=== PATIENT | male | born 1965 | race Caucasian/White ===

== ENCOUNTER 2020-08-15 17:09 | Inpatient (IN) ==
[2020-08-15] MEDS ORDERED: ZOFRAN INJ 4 MG VIAL IVP PRN (18:23)
[2020-08-15] MEDS ORDERED: DEMEROL INJ IVP PRN (18:23)
[2020-08-15 18:51] LABS: BASOPHILS # (AUTO) 0.1 X10^3/uL (0.0-0.1); BASOPHILS % (AUTO) 0.5 % (0.2-1.0); EOSINOPHILS # (AUTO) 0.1 x10^3/uL (0.0-0.2); EOSINOPHILS % (AUTO) 0.7 % (0.9-2.9); HEMATOCRIT 38.9 % (42.0-54.0); HEMOGLOBIN 13.4 g/dL (13.5-18.0); LYMPHOCYTES # (AUTO) 1.7 X10^3/uL (1.3-2.9); LYMPHOCYTES % (AUTO) 10.5 % (21.0-51.0); MEAN CORPUSCULAR HEMOGLOBIN 35.1 pg (27.0-34.0); MEAN CORPUSCULAR HGB CONC 34.4 g/dL (33.0-35.0); MEAN CORPUSCULAR VOLUME 102.1 fL (80.0-100.0); MEAN PLATELET VOLUME 7.9 fL (7.4-11.0); MONOCYTES # (AUTO) 0.7 x10^3/uL (0.3-0.8); MONOCYTES % (AUTO) 4.7 % (0.0-13.0); NEUTROPHILS # (AUTO) 13.2 x10^3/uL (2.2-4.8); NEUTROPHILS % (AUTO) 83.6 % (42.0-75.0); PLATELET COUNT 143 X10^3/uL (150.0-450.0); RED BLOOD COUNT 3.81 X10^6/uL (4.7-6.0); RED CELL DISTRIBUTION WIDTH 13.2 % (11.6-16.5); WHITE BLOOD COUNT 15.8 X10^3/uL (3.6-10.0)
[2020-08-15 19:05] LABS: ALANINE AMINOTRANSFERASE 56 Units/L (12-78); ALKALINE PHOSPHATASE 152 Units/L (46-116); AMYLASE 77 Units/L (25-115); ASPARTATE AMINO TRANSFERASE 43 Units/L (15-37); BLOOD UREA NITROGEN 3 mg/dL (7-18); CALCIUM 8.4 mg/dL (8.5-10.1); CARBON DIOXIDE 30.2 mmol/L (21-32); CHLORIDE 96 mmol/L (98-107); COR CA(FOR HYPOALB) 9.2 mg/dL (8.5-10.1); COR NA(FOR HYPERGLY) 133 mmol/L (136-145); CREATININE 0.84 mg/dL (0.70-1.30); LIPASE 1482 Units/L (73-393); SODIUM 132 mmol/L (136-145); TOTAL PROTEIN 7.4 g/dL (6.4-8.2); eGFR NON BLACK RACES > 60 (>60)
[2020-08-15] MEDS ORDERED: NS 1000 ML 1,000 ML ONE (21:34)
[2020-08-15] MEDS: NS 1000 ML 1,000 ML IV SCH (21:35)
[2020-08-16 00:21] VITALS: BMI 23.7
[2020-08-16] MEDS ORDERED: POTASSIUM CHL 60 MEQ/NS 0.45% 500 ML IV PRN (02:11)
[2020-08-16] MEDS ORDERED: POTASSIUM CHLORIDE LIQ 20 MEQ UDC PO PRN (02:11)
[2020-08-16] MEDS ORDERED: MAGNESIUM SULFATE 1 GRAM/100 mL PREMIX 1 GM/100 ML BAG IV PRN (02:11)
[2020-08-16] MEDS ORDERED: KLOR-CON PO PRN (02:11)
[2020-08-16] MEDS ORDERED: MICRO K EXTEN CAP 10 MEQ PO PRN (02:11)
[2020-08-16] MEDS ORDERED: POTASSIUM CHL 40 MEQ/NS 0.45% 500 ML IV PRN (02:11)
[2020-08-16 06:07] LABS: BASOPHILS % (AUTO) 0.3 % (0.2-1.0); EOSINOPHILS # (AUTO) 0.2 x10^3/uL (0.0-0.2); EOSINOPHILS % (AUTO) 1.5 % (0.9-2.9); HEMATOCRIT 35.8 % (42.0-54.0); HEMOGLOBIN 12.3 g/dL (13.5-18.0); LYMPHOCYTES # (AUTO) 1.5 X10^3/uL (1.3-2.9); LYMPHOCYTES % (AUTO) 12.5 % (21.0-51.0); MEAN CORPUSCULAR HEMOGLOBIN 35.1 pg (27.0-34.0); MEAN CORPUSCULAR HGB CONC 34.3 g/dL (33.0-35.0); MEAN CORPUSCULAR VOLUME 102.3 fL (80.0-100.0); MEAN PLATELET VOLUME 8.5 fL (7.4-11.0); MONOCYTES # (AUTO) 0.7 x10^3/uL (0.3-0.8); MONOCYTES % (AUTO) 5.9 % (0.0-13.0); NEUTROPHILS # (AUTO) 9.4 x10^3/uL (2.2-4.8); NEUTROPHILS % (AUTO) 79.8 % (42.0-75.0); PLATELET COUNT 136 X10^3/uL (150.0-450.0); RED CELL DISTRIBUTION WIDTH 12.9 % (11.6-16.5); WHITE BLOOD COUNT 11.8 X10^3/uL (3.6-10.0)
[2020-08-16 06:26] LABS: ALANINE AMINOTRANSFERASE 44 Units/L (12-78); ALBUMIN 2.5 g/dL (3.4-5.0); ALKALINE PHOSPHATASE 131 Units/L (46-116); ASPARTATE AMINO TRANSFERASE 36 Units/L (15-37); BLOOD UREA NITROGEN 4 mg/dL (7-18); CALCIUM 8.4 mg/dL (8.5-10.1); CARBON DIOXIDE 28.5 mmol/L (21-32); CHLORIDE 100 mmol/L (98-107); COR CA(FOR HYPOALB) 9.6 mg/dL (8.5-10.1); COR NA(FOR HYPERGLY) 137 mmol/L (136-145); CREATININE 0.71 mg/dL (0.70-1.30); SODIUM 136 mmol/L (136-145); TOTAL PROTEIN 6.4 g/dL (6.4-8.2); eGFR NON BLACK RACES > 60 (>60)
[2020-08-16] MEDS: K-RIDER 10 MEQ/NS 100 ML 10 MEQ/100 ML BAG IV PRN ×4 (06:46→10:30)
[2020-08-16 08:39] LABS: AMYLASE 69 Units/L (25-115); LIPASE 1363 Units/L (73-393)
[2020-08-16] MEDS: NS 1000 ML 1,000 ML IV SCH ×3 (09:21→21:17)
--- NOTE | 2020-08-16 09:45 | US ---
HISTORYABDOMINAL PAINSTUDYGALL BLADDERCOMPARISONCT 08/15/2020TECHNIQUEMultiple bynum scale and color flow Doppler images of the right upper quadrant were obtained.FINDINGSThe liver is normal in size and increased in echotexture. No focal identifiable hepatic mass or intrahepatic biliary ductal dilatation.No stones or sludge in the gallbladder. No gallbladder wall thickening or pericholecystic fluid. The sonographic Torres's sign is reported as negative by the agile tester. The common bile duct is unremarkable measuring 0.2 cm.Visualized portions of the IVC are unremarkable. Suggestion of pancreatic edema.The right kidney appears normal in size measuring up to 12.0 cm. No stones or hydronephrosis.IMPRESSIONSuggestion of pancreatic edema which may be seen with acute pancreatitis.No evidence of stones or sludge in the gallbladder.Increased hepatic echotexture which may be seen with hepatocellular disease and/or steatosis.Electronically signed by: HOWARD TREADWELL (Aug 16, 2020 09:44:00)
--- NOTE | 2020-08-16 13:02 | DR.H&P ---
H&P - History & Physical for Day of: H&P Date: 08/15/20 - Chief Complaint Chief Complaint: ABDOMINAL PAIN, NAUSEA, VOMITING - History of Present Illness History of Present Illness: IS A 55 YEAR OLD PATIENT OF OURS WHO WAS SEEN IN THE OFFICE TODAY FOR COMPLAINTS OF UPPER ABDOMINAL PAIN, NAUSEA, AND VOMITING X 3 DAYS. SYMPTOMS HAVE PROGRESSIVELY GOTTEN WORSE. SYMPTOMS ARE WORSE AFTER EATING. PAIN IS DESCRIBED SHARP, CRAMPING, AND IS CURRENTLY RATED A 7/10. HE HAS TAKEN NORCO AT HOME WITHOUT IMPROVEMENT IN SYMPTOMS. HE DENIES BOWEL CHANGES, DYSURIA, OR HEMATURIA. HIS PMH INCLUDES: ALCOHOL ABUSE, HTN, CHRONIC BACK PAIN, NECK FUSION, AND STEEL PLATE IN LEFT LOWER LEG. HE WAS SENT TO THE HOSPITAL FOR AN OUTPATIENT ABDOMEN/PELVIS CT WITH CONTRAST. IT REVEALED: 1. Findings compatible with acute pancreatitis around the head and uncinate process of pancreas with associated duodenitis. Scattered free fluid around the liver and in pelvis is likely reactive. No evidence of pseudocyst or other complication. 2. Possible sludge or small stones at gallbladder neck which could be further evaluated with ultrasound. DECISION WAS MADE TO ADMIT PATIENT FOR FURTHER EVALUATION AND TREATMENT OF ACUTE PANCRATITIS. ON ARRIVAL TO THE HOSP ITAL, VITALS WERE 100.4-109-20-99%-202/90. LABS WERE OBTAINED. ABNORMAL LAB VALUES INCLUDED THE FOLLOWING: WBC 15.8, RBC 3.81, HGB 13.4, HCT 38.9, PLT COUNT 143, SODIUM 132, CHLORIDE 96, BUN 3, GLUCOSE 156, CALCIUM 8.4, AST 43, ALK PHOS 152, ALBUMIN 3.0, LIPASE 1482. COVID-19 NEGATIVE. WE STARTED PATIENT ON NS AT 100 ML/HR, DEMEROL 25MG IV Q6H PRN, ZOFRAN 4MG IV Q4H PRN. WE PLAN TO OBTAIN A GALLBLADDER ULTRASOUND. OTHERWISE, WE WILL FOLLOW UP WITH AM LABS AND CONTINUE TO MONITOR. TIME SPENT ON CLINICAL ASSESSMENT, REVIEWING LABS AND IMAGING, DECISION MAKING, AND DOCUMENTATION GREATER THAN 75 MINUTES. - Past Medical History Past Medical History: Hypertension Additional Medical History: ALCOHOL ABUSE, CHRONIC BACK PAIN - Past Surgical History Surgical History: Ortho Surgery Additional Surgical History: STEEL PLATE IN LEFT LOWER LEG, NECK FUSION - Family History Family Medical History: Cancer, Coronary Artery Disease - Social History Does patient currently use any type of tobacco product: Yes Have you used tobacco products in the last 12 months: Yes Type of Tobacco Use: Cigarettes How many years tobacco product used: 40 Does any household member use tobacco: No Alcohol Use: DAILY Drug Use: None - Medications Home Medications: Penicillins Allergy (Verified 08/15/20 21:46) CONTINUE taking the following medications alprazolam 1 mg PO BID 08/16/20 [History] hydrocodone-acetaminophen 1 tab PO QID 08/16/20 [History] - Review of Systems Constitutional: Fever, Weakness Eyes: No Symptoms Reported ENT: No Symptoms Reported Respiratory: No Symptoms Reported Cardiovascular: No Symptoms Reported Gastrointestinal: See HPI, Nausea, Vomiting, Abdominal Pain Genitourinary: No Symptoms Reported Musculoskeletal: No Symptoms Reported Skin: No Symptoms Reported Neurological: Weakness - Physical Exam Vital Signs: Temperature 98.5 F Pulse Rate [Brachial] 81 Respiratory Rate 18 Blood Pressure [Right Arm] 131/63 O2 Sat by Pulse Oximetry 96 Oriented: Normal Eyes: Normal Ear: Normal Nose: Normal Throat: Normal Respiratory: Diminished Throughout Cardiovascular: Tachycardia : Normal Auscultation: Bowel Sounds: Normal Palpation: Normal Tenderness: RUQ, LUQ, Moderate. negative: Rebound, Guarding, Rigidity Skin: Normal Musculoskeletal: Normal Psychiatric: Normal Mood Description: Calm Affect: Normal Speech Pattern: Clear - Assessment/Plan (1) Acute pancreatitis Qualifiers: Pancreatitis type: alcohol induced Acute pancreatitis complication: unspecified Qualified Code(s): K85.20 - Alcohol induced acute pancreatitis without necrosis or infection Status: Acute Plan: ADMIT, NS AT 100 ML/HR, DEMEROL 25MG IV Q6H PRN, ZOFRAN 4MG IV Q4H PRN. OBTAIN GALLBLADDER ULTRASOUND, CONTINUE TO MONITOR. (2) Abdominal pain Qualifiers: Abdominal location: generalized Qualified Code(s): R10.84 - Generalized abdominal pain Status: Acute - Allergies Allergies/Adverse Reactions: Allergies Allergy/AdvReac Type Severity Reaction Status Date / Time Penicillins Allergy Verified 08/15/20 21:46
[2020-08-16] MEDS: XANAX PO SCH ×2 (13:30→20:03)
[2020-08-16] MEDS: NORCO 10/325 TAB PO PRN (20:04)
[2020-08-17 06:18] LABS: BASOPHILS # (AUTO) 0.1 X10^3/uL (0.0-0.1); BASOPHILS % (AUTO) 0.5 % (0.2-1.0); EOSINOPHILS # (AUTO) 0.2 x10^3/uL (0.0-0.2); EOSINOPHILS % (AUTO) 1.8 % (0.9-2.9); HEMATOCRIT 36.9 % (42.0-54.0); HEMOGLOBIN 12.1 g/dL (13.5-18.0); LYMPHOCYTES # (AUTO) 1.5 X10^3/uL (1.3-2.9); LYMPHOCYTES % (AUTO) 13.4 % (21.0-51.0); MEAN CORPUSCULAR HGB CONC 32.8 g/dL (33.0-35.0); MEAN CORPUSCULAR VOLUME 103.6 fL (80.0-100.0); MEAN PLATELET VOLUME 8.4 fL (7.4-11.0); MONOCYTES # (AUTO) 0.7 x10^3/uL (0.3-0.8); MONOCYTES % (AUTO) 6.2 % (0.0-13.0); NEUTROPHILS # (AUTO) 8.7 x10^3/uL (2.2-4.8); NEUTROPHILS % (AUTO) 78.1 % (42.0-75.0); PLATELET COUNT 165 X10^3/uL (150.0-450.0); RED BLOOD COUNT 3.56 X10^6/uL (4.7-6.0); RED CELL DISTRIBUTION WIDTH 13.2 % (11.6-16.5); WHITE BLOOD COUNT 11.1 X10^3/uL (3.6-10.0)
[2020-08-17 06:22] LABS: ALANINE AMINOTRANSFERASE 37 Units/L (12-78); ALBUMIN 2.3 g/dL (3.4-5.0); ALKALINE PHOSPHATASE 143 Units/L (46-116); AMYLASE 66 Units/L (25-115); ASPARTATE AMINO TRANSFERASE 32 Units/L (15-37); BLOOD UREA NITROGEN 4 mg/dL (7-18); CALCIUM 8.2 mg/dL (8.5-10.1); CHLORIDE 103 mmol/L (98-107); COR CA(FOR HYPOALB) 9.6 mg/dL (8.5-10.1); COR NA(FOR HYPERGLY) 138 mmol/L (136-145); CREATININE 0.72 mg/dL (0.70-1.30); LIPASE 1152 Units/L (73-393); SODIUM 137 mmol/L (136-145); TOTAL PROTEIN 6.5 g/dL (6.4-8.2); eGFR NON BLACK RACES > 60 (>60)
[2020-08-17] MEDS: XANAX PO SCH ×2 (10:30→20:33)
--- NOTE | 2020-08-17 10:50 | PCM.PROG ---
Progress Note Progress Note for Day of Date of Exam: 08/17/20 Subjective Subjective: Patient seen at bedside, no acute events overnight. He states he feels better. His abdominal pain has improved. Denies N/V/D. He has been tolerating clears and wants to advance his diet. Denies fever or chills. Labs: WBC 11.1 Hgb 12.1 Na: 138 K: 3.5 Alk phos 143 Lipase 1152 Gallbladder U/S: acute pancreatitis, no stones or sludge noted. Plan: advance diet to full liquids, continue hydration and pain control. Monitor AM labs. Patient reports ETOH use, discussed cessation. Past Medical Family Social History Past Med/Fam/Surg Hx: No changes since H&P Allergies: Allergies Penicillins Allergy (Verified 08/15/20 21:46) Review of Systems ROS: No change since H&P Vital Signs and I&O's Vital Signs: Temperature 98.5 F Pulse Rate [Brachial] 104 Respiratory Rate 18 Blood Pressure [Left Arm] 138/64 Blood Pressure [Right Arm] 135/69 O2 Sat by Pulse Oximetry 98 Intake and Output: Intake & Output 08/14/20 08/15/20 08/16/20 08/17/20 23:59 23:59 23:59 23:59 Intake Total 0 / 0 3033 / 3033 681 / 681 Balance 0 / 0 3033 / 3033 681 / 681 Physical Exam Oriented: Normal Eyes: Normal Ear: Normal Nose: Normal Throat: Normal Respiratory: Normal Cardiovascular: Normal Auscultation: Bowel Sounds: Normal Tenderness: LUQ, LLQ and Mild Skin: Normal Musculoskeletal: Normal Psychiatric: Normal Mood Description: Calm Affect: Normal Speech Pattern: Clear and Appropriate Laboratory and Diagnostics Result Diagrams: 08/17/20 05:13 08/17/20 05:13 Labs: Laboratory WBC 11.1 X10^3/uL (3.6-10.0) H 08/17/20 05:13 RBC 3.56 X10^6/uL (4.7-6.0) L 08/17/20 05:13 Hgb 12.1 g/dL (13.5-18.0) L 08/17/20 05:13 Hct 36.9 % (42.0-54.0) L 08/17/20 05:13 MCV 103.6 fL (80.0-100.0) H 08/17/20 05:13 MCH 34.0 pg (27.0-34.0) 08/17/20 05:13 MCHC 32.8 g/dL (33.0-35.0) L 08/17/20 05:13 RDW 13.2 % (11.6-16.5) 08/17/20 05:13 Plt Count 165 X10^3/uL (150.0-450.0) 08/17/20 05:13 MPV 8.4 fL (7.4-11.0) 08/17/20 05:13 Neut % (Auto) 78.1 % (42.0-75.0) H 08/17/20 05:13 Lymph % (Auto) 13.4 % (21.0-51.0) L 08/17/20 05:13 [place] % (Auto) 6.2 % (0.0-13.0) 08/17/20 05:13 Eos % (Auto) 1.8 % (0.9-2.9) 08/17/20 05:13 Baso % (Auto) 0.5 % (0.2-1.0) 08/17/20 05:13 Neut # (Auto) 8.7 x10^3/uL (2.2-4.8) H 08/17/20 05:13 Lymph # (Auto) 1.5 X10^3/uL (1.3-2.9) 08/17/20 05:13 [place] # (Auto) 0.7 x10^3/uL (0.3-0.8) 08/17/20 05:13 Eos # (Auto) 0.2 x10^3/uL (0.0-0.2) 08/17/20 05:13 Baso # (Auto) 0.1 X10^3/uL (0.0-0.1) 08/17/20 05:13 Absolute Nucleated RBC 0.1 /100WBC 08/17/20 05:13 Sodium 137 mmol/L (136-145) 08/17/20 05:13 Corrected Sodium 138 mmol/L (136-145) 08/17/20 05:13 Potassium 3.5 mmol/L (3.5-5.1) 08/17/20 05:13 Chloride 103 mmol/L (98-107) 08/17/20 05:13 Carbon Dioxide 27.0 mmol/L (21-32) 08/17/20 05:13 BUN 4 mg/dL (7-18) L 08/17/20 05:13 Creatinine 0.72 mg/dL (0.70-1.30) 08/17/20 05:13 Est GFR (MDRD) Af Amer > 60 (>60) 08/17/20 05:13 Est GFR (MDRD) Non-Af > 60 (>60) 08/17/20 05:13 Glucose 157 mg/dL (65-99) H 08/17/20 05:13 Calcium 8.2 mg/dL (8.5-10.1) L 08/17/20 05:13 Corrected Calcium 9.6 mg/dL (8.5-10.1) 08/17/20 05:13 Magnesium 2.2 mg/dL (1.7-2.9) 08/16/20 05:16 Total Bilirubin 0.60 mg/dL (0.2-1.0) 08/17/20 05:13 AST 32 Units/L (15-37) 08/17/20 05:13 ALT 37 Units/L (12-78) 08/17/20 05:13 Alkaline Phosphatase 143 Units/L (46-116) H 08/17/20 05:13 Total Protein 6.5 g/dL (6.4-8.2) 08/17/20 05:13 Albumin 2.3 g/dL (3.4-5.0) L 08/17/20 05:13 Globulin 4.2 g/dL (2.5-4.5) 08/17/20 05:13 Albumin/Globulin Ratio 0.5 Ratio (1.1-2.1) L 08/17/20 05:13 Amylase 66 Units/L (25-115) 08/17/20 05:13 Lipase 1152 Units/L (73-393) H 08/17/20 05:13 Ethyl Alcohol mg/dL < 3 mg/dL (0-19.9) 08/16/20 05:16 SARS CoV-2 RNA Rapid LLOYD Negative (NEGATIVE) 08/15/20 17:57 Plan (1) Acute pancreatitis: Status: Acute Qualifiers: Acute pancreatitis complication: unspecified Pancreatitis type: alcohol induced Qualified Code(s): K85.20 - Alcohol induced acute pancreatitis without necrosis or infection Plan: ADMIT, NS AT 100 ML/HR, DEMEROL 25MG IV Q6H PRN, ZOFRAN 4MG IV Q4H P RN. OBTAIN GALLBLADDER ULTRASOUND, CONTINUE TO MONITOR. (2) Abdominal pain: Status: Acute Qualifiers: Abdominal location: generalized Qualified Code(s): R10.84 - Generalized abdominal pain (3) Alcohol use: Status: Acute
[2020-08-17] MEDS: NS 1000 ML 1,000 ML IV SCH (15:52)
[2020-08-17] MEDS: NORCO 10/325 TAB PO PRN ×2 (18:00→19:26)
[2020-08-17] MEDS: K-DUR TAB 20 MEQ PO PRN (20:34)
[2020-08-18] MEDS: NS 1000 ML 1,000 ML IV SCH (02:30)
[2020-08-18 06:26] LABS: BASOPHILS % (AUTO) 0.4 % (0.2-1.0); EOSINOPHILS # (AUTO) 0.2 x10^3/uL (0.0-0.2); EOSINOPHILS % (AUTO) 1.8 % (0.9-2.9); HEMATOCRIT 33.8 % (42.0-54.0); HEMOGLOBIN 11.3 g/dL (13.5-18.0); LYMPHOCYTES # (AUTO) 1.2 X10^3/uL (1.3-2.9); LYMPHOCYTES % (AUTO) 12.9 % (21.0-51.0); MEAN CORPUSCULAR HEMOGLOBIN 34.7 pg (27.0-34.0); MEAN CORPUSCULAR HGB CONC 33.4 g/dL (33.0-35.0); MEAN CORPUSCULAR VOLUME 103.9 fL (80.0-100.0); MEAN PLATELET VOLUME 8.6 fL (7.4-11.0); MONOCYTES # (AUTO) 0.8 x10^3/uL (0.3-0.8); MONOCYTES % (AUTO) 8.7 % (0.0-13.0); NEUTROPHILS # (AUTO) 7.2 x10^3/uL (2.2-4.8); NEUTROPHILS % (AUTO) 76.2 % (42.0-75.0); PLATELET COUNT 183 X10^3/uL (150.0-450.0); RED BLOOD COUNT 3.26 X10^6/uL (4.7-6.0); RED CELL DISTRIBUTION WIDTH 13.1 % (11.6-16.5); WHITE BLOOD COUNT 9.4 X10^3/uL (3.6-10.0)
[2020-08-18 06:38] LABS: ALANINE AMINOTRANSFERASE 34 Units/L (12-78); ALBUMIN 2.2 g/dL (3.4-5.0); ALKALINE PHOSPHATASE 162 Units/L (46-116); ASPARTATE AMINO TRANSFERASE 34 Units/L (15-37); BLOOD UREA NITROGEN 2 mg/dL (7-18); CALCIUM 8.6 mg/dL (8.5-10.1); CARBON DIOXIDE 26.5 mmol/L (21-32); CHLORIDE 102 mmol/L (98-107); COR NA(FOR HYPERGLY) 137 mmol/L (136-145); CREATININE 0.73 mg/dL (0.70-1.30); SODIUM 135 mmol/L (136-145); TOTAL PROTEIN 6.3 g/dL (6.4-8.2); eGFR NON BLACK RACES > 60 (>60)
[2020-08-18] MEDS: K-DUR TAB 20 MEQ PO PRN (06:51)
[2020-08-18 07:51] VITALS: BP 122/65
--- NOTE | 2020-08-18 08:53 | W.DIS.FURT ---
Summary of Discharge Discharge Summary of Date Date of Exam: 08/18/20 Admission Date Date of Admission: 08/16/20 Admission Diagnosis Patient Problems (Updated 08/16/20 @ 13:03 by aJvier Peterson) Acute pancreatitis (Acute) K85.90 Abdominal pain (Acute) R10.9 Hospital Course: Mr. Francis is a 55y/o male with a PMH of chronic back pain, neck fusion and anxiety presented to Dr Peterson's clinic with increased abdominal pain, nausea and vomiting for the past 3 days. He states pain is sharp, 7/10 and worse with eating. Denies fever or chills. Denies diarrhea. Denies urinary Sx. He does have a hx of ETOH use. He was sent from the office for outpatient CTAP which showed acute pancreatitis around the head and uncinate process of pancreas with associated duodenitis. Possible sludge or small gallstones. Patient was advised to come to the hospital for admission. His lipase was 1482, WBC 15, HGb 13.4 Plt 143. COVID test was negative. He was started on normal saline and pain control. He was kept NPO initially and then advanced as tolerated. Gall bladder U/S was done which showed no stones or sludge. Patient's abdominal pain resolved and he had no N/V. He was advanced to full liquid diet which he was able to tolerate. Discussed alcohol cessation. Patient was stable for discharge. He will f/u with PCP as scheduled. Vital Signs: Vital Signs (72 hours) 08/15/20 20:00 08/15/20 22:01 08/15/20 22:31 Temperature 100.4 F H Pulse Rate [Brachial] 109 H Respiratory Rate 20 20 20 Blood Pressure [Left Arm] Blood Pressure [Right Arm] 202/90 O2 Sat by Pulse Oximetry 99 08/16/20 00:00 08/16/20 04:00 08/16/20 08:00 Temperature 98.7 F 98.7 F 98.5 F Pulse Rate [Brachial] 96 H 89 81 Respiratory Rate 19 20 18 Blood Pressure [Left Arm] Blood Pressure [Right Arm] 137/66 140/67 131/63 O2 Sat by Pulse Oximetry 96 98 96 08/16/20 12:00 08/16/20 16:00 08/16/20 20:00 Temperature 98.5 F 98.3 F 98.3 F Pulse Rate [Brachial] 88 83 86 Respiratory Rate 20 18 20 Blood Pressure [Left Arm] Blood Pressure [Right Arm] 132/67 137/83 171/80 O2 Sat by Pulse Oximetry 96 96 97 08/16/20 20:04 08/16/20 21:04 08/17/20 00:00 Temperature 98.1 F Pulse Rate [Brachial] 88 Respiratory Rate 20 18 20 Blood Pressure [Left Arm] Blood Pressure [Right Arm] 138/65 O2 Sat by Pulse Oximetry 96 08/17/20 04:00 08/17/20 08:00 08/17/20 12:00 Temperature 98.5 F 98.5 F 98.4 F Pulse Rate [Brachial] 81 104 H 106 H Respiratory Rate 20 18 20 Blood Pressure [Left Arm] 138/64 152/73 Blood Pressure [Right Arm] 135/69 O2 Sat by Pulse Oximetry 96 98 98 08/17/20 16:00 08/17/20 18:00 08/17/20 19:00 Temperature 98.7 F Pulse Rate [Brachial] 92 H Respiratory Rate 20 18 20 Blood Pressure [Left Arm] 156/74 Blood Pressure [Right Arm] O2 Sat by Pulse Oximetry 96 08/17/20 20:00 08/18/20 00:00 08/18/20 04:00 Temperature 98.3 F 97.8 F 98.1 F Pulse Rate [Brachial] 86 80 91 H Respiratory Rate 18 16 14 Blood Pressure [Left Arm] 153/96 143/70 142/71 Blood Pressure [Right Arm] O2 Sat by Pulse Oximetry 97 97 97 08/18/20 07:50 Temperature 98.7 F Pulse Rate [Brachial] 88 Respiratory Rate 20 Blood Pressure [Left Arm] 122/65 Blood Pressure [Right Arm] O2 Sat by Pulse Oximetry 95 Labs: Laboratory Last Values WBC 9.4 X10^3/uL (3.6-10.0) 08/18/20 05:21 RBC 3.26 X10^6/uL (4.7-6.0) L 08/18/20 05:21 Hgb 11.3 g/dL (13.5-18.0) L 08/18/20 05:21 Hct 33.8 % (42.0-54.0) L 08/18/20 05:21 MCV 103.9 fL (80.0-100.0) H 08/18/20 05:21 MCH 34.7 pg (27.0-34.0) H 08/18/20 05:21 MCHC 33.4 g/dL (33.0-35.0) 08/18/20 05:21 RDW 13.1 % (11.6-16.5) 08/18/20 05:21 Plt Count 183 X10^3/uL (150.0-450.0) 08/18/20 05:21 MPV 8.6 fL (7.4-11.0) 08/18/20 05:21 Neut % (Auto) 76.2 % (42.0-75.0) H 08/18/20 05:21 Lymph % (Auto) 12.9 % (21.0-51.0) L 08/18/20 05:21 [place] % (Auto) 8.7 % (0.0-13.0) 08/18/20 05:21 Eos % (Auto) 1.8 % (0.9-2.9) 08/18/20 05:21 Baso % (Auto) 0.4 % (0.2-1.0) 08/18/20 05:21 Neut # (Auto) 7.2 x10^3/uL (2.2-4.8) H 08/18/20 05:21 Lymph # (Auto) 1.2 X10^3/uL (1.3-2.9) L 08/18/20 05:21 [place] # (Auto) 0.8 x10^3/uL (0.3-0.8) 08/18/20 05:21 Eos # (Auto) 0.2 x10^3/uL (0.0-0.2) 08/18/20 05:21 Baso # (Auto) 0.0 X10^3/uL (0.0-0.1) 08/18/20 05:21 Absolute Nucleated RBC 0.0 /100WBC 08/18/20 05:21 Sodium 135 mmol/L (136-145) L 08/18/20 05:21 Corrected Sodium 137 mmol/L (136-145) 08/18/20 05:21 Potassium 3.6 mmol/L (3.5-5.1) 08/18/20 05:21 Chloride 102 mmol/L (98-107) 08/18/20 05:21 Carbon Dioxide 26.5 mmol/L (21-32) 08/18/20 05:21 BUN 2 mg/dL (7-18) L 08/18/20 05:21 Creatinine 0.73 mg/dL (0.70-1.30) 08/18/20 05:21 Est GFR (MDRD) Af Amer > 60 (>60) 08/18/20 05:21 Est GFR (MDRD) Non-Af > 60 (>60) 08/18/20 05:21 Glucose 186 mg/dL (65-99) H 08/18/20 05:21 Calcium 8.6 mg/dL (8.5-10.1) 08/18/20 05:21 Corrected Calcium 10.0 mg/dL (8.5-10.1) 08/18/20 05:21 Magnesium 2.2 mg/dL (1.7-2.9) 08/16/20 05:16 Total Bilirubin 0.30 mg/dL (0.2-1.0) 08/18/20 05:21 AST 34 Units/L (15-37) 08/18/20 05:21 ALT 34 Units/L (12-78) 08/18/20 05:21 Alkaline Phosphatase 162 Units/L (46-116) H 08/18/20 05:21 Total Protein 6.3 g/dL (6.4-8.2) L 08/18/20 05:21 Albumin 2.2 g/dL (3.4-5.0) L 08/18/20 05:21 Globulin 4.1 g/dL (2.5-4.5) 08/18/20 05:21 Albumin/Globulin Ratio 0.5 Ratio (1.1-2.1) L 08/18/20 05:21 Amylase 66 Units/L (25-115) 08/17/20 05:13 Lipase 1152 Units/L (73-393) H 08/17/20 05:13 Ethyl Alcohol mg/dL < 3 mg/dL (0-19.9) 08/16/20 05:16 SARS CoV-2 RNA Rapid LLOYD Negative (NEGATIVE) 08/15/20 17:57 Reason For Visit: ACUTE PANCREATITIS Discharge Date Discharge Date: 08/18/20 Discharge Diagnosis All Active Problems (Updated 08/16/20 @ 13:03 by Javier Peterson) Alcohol use (Acute) Acute pancreatitis (Acute) Abdominal pain (Acute) Plan of Treatment: Continue with present treatment and follow up plan. Pt is to keep follow up appointment as instructed and take medications as ordered. Discharge Medications Discharge Medications: Penicillins Allergy (Verified 08/15/20 21:46) CONTINUE taking the following medications alprazolam 1 mg PO BID 08/16/20 [History] hydrocodone-acetaminophen 1 tab PO QID 08/16/20 [History] Follow up and Referral Follow Up: 1 Week (PCP) Discharge Disposition Discharge Disposition: Home Discharge Condition: Stable Discharge Plan Discharge Plan Hospital Course: Mr. Francis is a 55y/o male with a PMH of chronic back pain, neck fusion and anxiety presented to Dr Peterson's clinic with increased abdominal pain, nausea and vomiting for the past 3 days. He states pain is sharp, 7/10 and worse with eating. Denies fever or chills. Denies diarrhea. Denies urinary Sx. He does have a hx of ETOH use. He was sent from the office for outpatient CTAP which showed acute pancreatitis around the head and uncinate process of pancreas with associated duodenitis. Possible sludge or small gallstones. Patient was advised to come to the hospital for admission. His lipase was 1482, WBC 15, HGb 13.4 Plt 143. COVID test was negative. He was started on normal saline and pain control. He was kept NPO initially and then advanced as tolerated. Gall bladder U/S was done which showed no stones or sludge. Patient's abdominal pain resolved and he had no N/V. He was advanced to full liquid diet which he was able to tolerate. Discussed alcohol cessation. Patient was stable for discharge. He will f/u with PCP as scheduled. Patient Disposition: HOME, SELF-CARE Condition: Stable Health Concerns: Post Hospitalization: new medications and changes needed to prevent readmission or further decline. Pt educated and given instructions on all concerns. Plan of Treatment: Continue with present treatment and follow up plan. Pt is to keep follow up appointment as instructed and take medications as ordered. Prescriptions: Continued alprazolam 1 mg tablet 1 mg PO BID RF: 0 hydrocodone-acetaminophen 10-325 mg tablet 1 tab PO QID RF: 0 Follow ups/Referrals Follow ups/Referrals: ARIAS JENKINS [Primary Care Provider] - 1 WEEK Instructions Instructions: Acute Pancreatitis Stand Alone Forms: Excuse From Work or School, Precautions for COVID19, Patient Portal, Social Distancing
[2020-08-18] MEDS: XANAX PO SCH (08:54)
== END 2020-08-18 10:25 | disposition home or self-care (01) | DRG 440 ==
LOC: MED/SURG → OBSVTOIN 17:30
PROVIDERS: ADMIT Internal Medicine; ATTEND Internal Medicine
DX: Z72.89 Other problems related to lifestyle; R10.84 Generalized abdominal pain; R11.2 Nausea with vomiting, unspecified; K85.20 Alcohol induced acute pancreatitis without necrosis or infection; Z20.822 Contact with and (suspected) exposure to COVID-19; K29.80 Duodenitis without bleeding

== ENCOUNTER 2022-01-03 15:36 | Observation (INO) ==
--- NOTE | 2022-01-03 16:06 | DR.ABDMALE ---
HPI Time seen Time Seen by Provider: 01/03/22 16:03 PCP Primary Care Physician: GREGORY Mccullough UNDERWRITING SUPPORT MANAGER HPI comment HPI Comment: PATIENT IS 56YR OLD MALE IN ER WITH INCREASING ABDOMINAL PAIN TIMES 3 DAYS. HE HAS HISTORY OF PANCREATITIS. Complaint Chief Complaint Doctors Comments: ABDOMINAL PAIN TIMES 3 DAYS. HISTORY PANCREATITIS. Chief Complaint:: PT REPORTS OVER THE PAST 3 DAYS HE HAS HAD INCREASING ABD PAIN ( PT REPORTS THAT HE HAS A HX OF PANCREATITIS AND HE DRINKS A 6 PACK OF BEER A DAY ) PT STATES HE IS OUT OF HIS PAIN MEDS ,BR COVID-19 Coronavirus risk:travel/contact w/high risk person: No Has patient experienced Coronavirus symptoms: No Mode of arrival Mode of Arrival: Stretcher Timing Onset of Chief Complaint: 01/01/22 PMH PMH Past Medical History: Yes Past Medical History: Hypertension Past Medical History Comment: LEFT HERNIA REPAIR 3 MONTHS AGO Past Surgical History: Yes Surgical History: Ortho Surgery Family History History of Family Medical Conditions: Yes Family Medical History: Cancer and Coronary Artery Disease Social History Does patient currently use any type of tobacco product: Yes Have you used tobacco products in the last 12 months: Yes Type of Tobacco Use: Cigarettes Does any household member use tobacco: No Alcohol Use: Rarely Do you use any recreational Drugs:: No Lives With: Family Lives Where: Home Travel Risk Coronavirus risk:travel/contact w/high risk person: No Has patient experienced Coronavirus symptoms: No Infectious screening In the last 2 months have you had wt loss of >10#?: NO Have you had fever, night sweats or hemotysis?: No Have you traveled outside the country in the last 6 months?: No Isolation: Standard PE Vital Signs Vital Signs: Temp Pulse Resp BP BP Pulse Ox O2 Del Method 08/18/20 07:50 122/65 01/03/22 19:00 85 96 01/03/22 19:00 157/66 01/03/22 18:50 157/71 01/03/22 18:40 154/72 01/03/22 18:30 161/70 01/03/22 18:26 69 97 01/03/22 18:20 65 97 01/03/22 18:20 160/90 01/03/22 18:15 71 97 01/03/22 18:10 70 97 01/03/22 18:10 209/104 01/03/22 18:01 70 98 01/03/22 18:01 192/115 01/03/22 18:00 71 98 01/03/22 17:50 70 98 01/03/22 17:50 217/99 01/03/22 17:45 76 98 01/03/22 17:31 85 98 01/03/22 17:18 88 99 01/03/22 17:00 61 97 01/03/22 17:00 180/85 01/03/22 16:51 208/95 01/03/22 16:51 70 96 01/03/22 16:45 76 98 01/03/22 16:40 204/96 01/03/22 16:40 75 98 01/03/22 16:32 71 97 01/03/22 16:32 209/95 01/03/22 16:30 69 98 01/03/22 16:21 73 98 01/03/22 16:21 228/107 01/03/22 16:15 70 98 01/03/22 16:12 73 98 01/03/22 16:12 224/104 01/03/22 16:05 73 97 01/03/22 18:03 18 01/03/22 15:47 97.8 F 78 20 192/91 99 Room Air ROR Labs Reviewed Result Diagrams: 01/05/22 04:15 01/05/22 09:58 Laboratory: WBC 10.1 X10^3/uL (3.6-10.0) H 01/03/22 16:32 RBC 4.74 X10^6/uL (4.7-6.0) 01/03/22 16:32 Hgb 15.9 g/dL (13.5-18.0) 01/03/22 16:32 Hct 46.0 % (42.0-54.0) 01/03/22 16:32 MCV 97.1 fL (80.0-100.0) 01/03/22 16:32 MCH 33.5 pg (27.0-34.0) 01/03/22 16:32 MCHC 34.5 g/dL (33.0-35.0) 01/03/22 16:32 RDW 12.9 % (11.6-16.5) 01/03/22 16:32 Plt Count 214 X10^3/uL (150.0-450.0) 01/03/22 16:32 MPV 7.9 fL (7.4-11.0) 01/03/22 16:32 Neut % (Auto) 73.6 % (42.0-75.0) 01/03/22 16:32 Lymph % (Auto) 17.7 % (21.0-51.0) L 01/03/22 16:32 [place] % (Auto) 7.2 % (0.0-13.0) 01/03/22 16:32 Eos % (Auto) 1.0 % (0.9-2.9) 01/03/22 16:32 Baso % (Auto) 0.5 % (0.2-1.0) 01/03/22 16:32 Neut # (Auto) 7.4 x10^3/uL (2.2-4.8) H 01/03/22 16:32 Lymph # (Auto) 1.8 X10^3/uL (1.3-2.9) 01/03/22 16:32 [place] # (Auto) 0.7 x10^3/uL (0.3-0.8) 01/03/22 16:32 Eos # (Auto) 0.1 x10^3/uL (0.0-0.2) 01/03/22 16:32 Baso # (Auto) 0.1 X10^3/uL (0.0-0.1) 01/03/22 16:32 Absolute Nucleated RBC 0.1 /100WBC 01/03/22 16:32 Sodium 135 mmol/L (136-145) L 01/03/22 16:32 Corrected Sodium 137 mmol/L (136-145) 01/03/22 16:32 Potassium 3.8 mmol/L (3.5-5.1) 01/03/22 16:32 Chloride 99 mmol/L (98-107) 01/03/22 16:32 Carbon Dioxide 29.4 mmol/L (21-32) 01/03/22 16:32 BUN 4 mg/dL (7-18) L 01/03/22 16:32 Creatinine 0.71 mg/dL (0.70-1.30) 01/03/22 16:32 Est GFR (MDRD) Af Amer > 60 (>60) 01/03/22 16:32 Est GFR (MDRD) Non-Af > 60 (>60) 01/03/22 16:32 Glucose 199 mg/dL (65-99) H 01/03/22 16:32 Calcium 8.8 mg/dL (8.5-10.1) 01/03/22 16:32 Corrected Calcium 9.4 mg/dL (8.5-10.1) 01/03/22 16:32 Total Bilirubin 0.40 mg/dL (0.2-1.0) 01/03/22 16:32 AST 23 Units/L (15-37) 01/03/22 16:32 ALT 30 Units/L (12-78) 01/03/22 16:32 Alkaline Phosphatase 148 Units/L (46-116) H 01/03/22 16:32 Ammonia 15 umol/L (11-32) 01/03/22 16:32 Total Protein 7.4 g/dL (6.4-8.2) 01/03/22 16:32 Albumin 3.2 g/dL (3.4-5.0) L 01/03/22 16:32 Globulin 4.2 g/dL (2.5-4.5) 01/03/22 16:32 Albumin/Globulin Ratio 0.8 Ratio (1.1-2.1) L 01/03/22 16:32 Amylase 99 Units/L (25-115) 01/03/22 16:32 Lipase 1549 Units/L (73-393) H 01/03/22 16:32 Specimen Type Clean catch urine 01/03/22 17:33 Urine Color Yellow (YELLOW) 01/03/22 17:33 Urine Appearance Clear (CLEAR) 01/03/22 17:33 Urine pH 7.0 (5.0 - 8.0) 01/03/22 17:33 Ur Specific [place] 1.010 (1.000-1.030) 01/03/22 17:33 Urine Protein Negative (NEGATIVE) 01/03/22 17:33 Urine Glucose (UA) 3+ (NEGATIVE) 01/03/22 17:33 Urine Ketones Negative (NEGATIVE) 01/03/22 17:33 Urine Blood Negative (NEGATIVE) 01/03/22 17:33 Urine Nitrite Negative (NEGATIVE) 01/03/22 17:33 Urine Bilirubin Negative (NEGATIVE) 01/03/22 17:33 Urine Urobilinogen Normal (NORMAL) 01/03/22 17:33 Ur Leukocyte Esterase Negative (NEGATIVE) 01/03/22 17:33 SARS-CoV-2 (PCR) Negative (NEGATIVE) 01/03/22 17:54 Opioid Opioid Risk Tool Age (Bret box if 16-45): No History of Preadolescent Sexual Abuse: No Total: 0 Total Score Risk Category: Low Risk Copyright: [employer] [place] predicting aberrant behaviors Discharge Plan Discharge Plan Patient Disposition: ADMITTED INPATIENT Condition: Stable
[2022-01-03 16:44] LABS: BASOPHILS # (AUTO) 0.1 X10^3/uL (0.0-0.1); BASOPHILS % (AUTO) 0.5 % (0.2-1.0); EOSINOPHILS # (AUTO) 0.1 x10^3/uL (0.0-0.2); HEMOGLOBIN 15.9 g/dL (13.5-18.0); LYMPHOCYTES # (AUTO) 1.8 X10^3/uL (1.3-2.9); LYMPHOCYTES % (AUTO) 17.7 % (21.0-51.0); MEAN CORPUSCULAR HEMOGLOBIN 33.5 pg (27.0-34.0); MEAN CORPUSCULAR HGB CONC 34.5 g/dL (33.0-35.0); MEAN CORPUSCULAR VOLUME 97.1 fL (80.0-100.0); MEAN PLATELET VOLUME 7.9 fL (7.4-11.0); MONOCYTES # (AUTO) 0.7 x10^3/uL (0.3-0.8); MONOCYTES % (AUTO) 7.2 % (0.0-13.0); NEUTROPHILS # (AUTO) 7.4 x10^3/uL (2.2-4.8); NEUTROPHILS % (AUTO) 73.6 % (42.0-75.0); RED BLOOD COUNT 4.74 X10^6/uL (4.7-6.0); RED CELL DISTRIBUTION WIDTH 12.9 % (11.6-16.5); WHITE BLOOD COUNT 10.1 X10^3/uL (3.6-10.0)
[2022-01-03 16:55] LABS: ALANINE AMINOTRANSFERASE 30 Units/L (12-78); ALBUMIN 3.2 g/dL (3.4-5.0); ALKALINE PHOSPHATASE 148 Units/L (46-116); AMYLASE 99 Units/L (25-115); ASPARTATE AMINO TRANSFERASE 23 Units/L (15-37); BLOOD UREA NITROGEN 4 mg/dL (7-18); CALCIUM 8.8 mg/dL (8.5-10.1); CARBON DIOXIDE 29.4 mmol/L (21-32); CHLORIDE 99 mmol/L (98-107); COR CA(FOR HYPOALB) 9.4 mg/dL (8.5-10.1); COR NA(FOR HYPERGLY) 137 mmol/L (136-145); CREATININE 0.71 mg/dL (0.70-1.30); SODIUM 135 mmol/L (136-145); TOTAL PROTEIN 7.4 g/dL (6.4-8.2); eGFR NON BLACK RACES > 60 (>60)
[2022-01-03 16:56] LABS: LIPASE 1549 Units/L (73-393)
--- NOTE | 2022-01-03 17:44 | CT ---
HISTORYABD PAINSTUDYABDOMEN/PELVIS W/O CONCOMPARISONFebruary 2020TECHNIQUENon-contrasted axial CT images of the abdomen and pelvis were obtained and reformatted into coronal and sagittal planes for further evaluation.Radiation dose: 560.50 mGy-cm total DLPFINDINGSLung bases are clear.Stomach appears normal.Edema adjacent to the pancreatic head/uncinate process.Liver, spleen and adrenal glands are unremarkable.Atherosclerotic changes to the abdominal aorta and iliac vessels without aneurysm.Gallbladder appears normal.No intra or extrahepatic biliary dilatation.Unremarkable appearance of the kidneys.No hydronephrosis, hydroureter or ureteral calculus.Unremarkable appearance of the urinary bladder.Normal appearance of the small and large bowel.Reproductive structures are unremarkable.No evidence of acute appendicitis.No pneumoperitoneum.No significant fluid collection.No adenopathy.No acute osseous abnormality.Multilevel degenerative disc and joint changes resulting in multilevel central canal stenosis or neural foraminal narrowing in the lumbar spine.IMPRESSIONFindings are most consistent with acute interstitial pancreatitis involving the pancreatic head and uncinate process.Electronically signed by: Darren Nelson (Jan 03, 2022 17:42:42)
[2022-01-03] MEDS ORDERED: ZOFRAN INJ 4 MG VIAL IVP ONE (17:51)
[2022-01-03] MEDS ORDERED: DEMEROL INJ IVP ONE (17:51)
[2022-01-03] MEDS ORDERED: DEMEROL INJ ONE (17:58)
[2022-01-03] MEDS ORDERED: NS 1,000 ML IV 1,000 ML ONE (17:58)
[2022-01-03] MEDS ORDERED: ZOFRAN INJ 4 MG VIAL ONE (17:58)
[2022-01-03] MEDS ORDERED: APRESOLINE INJ 20 MG VIAL IVP ONE (17:59)
[2022-01-03] MEDS ORDERED: APRESOLINE INJ 20 MG VIAL ONE (17:59)
[2022-01-03 18:01] LABS: APPEARANCE,URINE CLEAR (CLEAR); COLOR,URINE YELLOW (YELLOW)
[2022-01-03 18:02] LABS: BILIRUBIN,URINE NEGATIVE (NEGATIVE); BLOOD/HEMOGLOBIN,URINE NEGATIVE (NEGATIVE); GLUCOSE, URINE 3+ (NEGATIVE); KETONES,URINE NEGATIVE (NEGATIVE); LEUKOCYTE ESTERASE ,URINE NEGATIVE (NEGATIVE); NITRITES,URINE NEGATIVE (NEGATIVE); PROTEIN,URINE NEGATIVE (NEGATIVE); UROBILINOGEN,URINE NORMAL (NORMAL)
[2022-01-03] MEDS: NS 1,000 ML IV 1,000 ML IV SCH (18:04)
[2022-01-03] MEDS: DEMEROL INJ IVP PRN (20:42)
[2022-01-03] MEDS: APRESOLINE INJ 20 MG VIAL IVP PRN (20:42)
[2022-01-03] MEDS: ZOFRAN INJ 4 MG VIAL IVP PRN (20:42)
[2022-01-03] MEDS: PEPCID 20 MG VIAL 20 MG in NS 50 ML IV 50 ML IV SCH ×3 (20:43→21:54)
[2022-01-04] MEDS: NS 1,000 ML IV 1,000 ML IV SCH ×3 (02:55→17:04)
[2022-01-04 05:12] LABS: BASOPHILS # (AUTO) 0.1 X10^3/uL (0.0-0.1); BASOPHILS % (AUTO) 0.6 % (0.2-1.0); EOSINOPHILS # (AUTO) 0.1 x10^3/uL (0.0-0.2); EOSINOPHILS % (AUTO) 1.4 % (0.9-2.9); HEMATOCRIT 44.4 % (42.0-54.0); HEMOGLOBIN 15.4 g/dL (13.5-18.0); LYMPHOCYTES # (AUTO) 1.8 X10^3/uL (1.3-2.9); LYMPHOCYTES % (AUTO) 20.3 % (21.0-51.0); MEAN CORPUSCULAR HEMOGLOBIN 33.6 pg (27.0-34.0); MEAN CORPUSCULAR HGB CONC 34.6 g/dL (33.0-35.0); MEAN CORPUSCULAR VOLUME 97.2 fL (80.0-100.0); MEAN PLATELET VOLUME 8.2 fL (7.4-11.0); MONOCYTES # (AUTO) 0.8 x10^3/uL (0.3-0.8); MONOCYTES % (AUTO) 9.5 % (0.0-13.0); NEUTROPHILS # (AUTO) 5.9 x10^3/uL (2.2-4.8); NEUTROPHILS % (AUTO) 68.2 % (42.0-75.0); RED BLOOD COUNT 4.57 X10^6/uL (4.7-6.0); RED CELL DISTRIBUTION WIDTH 12.9 % (11.6-16.5); WHITE BLOOD COUNT 8.7 X10^3/uL (3.6-10.0)
[2022-01-04 05:26] LABS: ALANINE AMINOTRANSFERASE 26 Units/L (12-78); ALBUMIN 2.8 g/dL (3.4-5.0); ALKALINE PHOSPHATASE 133 Units/L (46-116); AMYLASE 92 Units/L (25-115); ASPARTATE AMINO TRANSFERASE 21 Units/L (15-37); BLOOD UREA NITROGEN 4 mg/dL (7-18); CALCIUM 8.4 mg/dL (8.5-10.1); CARBON DIOXIDE 25.6 mmol/L (21-32); CHLORIDE 101 mmol/L (98-107); COR CA(FOR HYPOALB) 9.4 mg/dL (8.5-10.1); COR NA(FOR HYPERGLY) 137 mmol/L (136-145); CREATININE 0.56 mg/dL (0.70-1.30); SODIUM 136 mmol/L (136-145); TOTAL PROTEIN 6.7 g/dL (6.4-8.2); eGFR NON BLACK RACES > 60 (>60)
[2022-01-04 05:34] LABS: LIPASE 1403 Units/L (73-393)
[2022-01-04] MEDS ORDERED: POTASSIUM CHL 60 MEQ/NS 0.45% 500 ML IV PRN (07:08)
[2022-01-04] MEDS ORDERED: POTASSIUM CHL 40 MEQ/NS 0.45% 500 ML IV PRN (07:08)
[2022-01-04] MEDS ORDERED: POTASSIUM CHLORIDE LIQ 20 MEQ UDC PO PRN (07:08)
[2022-01-04] MEDS ORDERED: K-RIDER 10 MEQ/NS 100 ML 10 MEQ/100 ML BAG IV PRN (07:08)
[2022-01-04] MEDS ORDERED: MICRO K EXTEN CAP 10 MEQ PO PRN (07:08)
[2022-01-04] MEDS ORDERED: KLOR-CON PO PRN (07:08)
[2022-01-04] MEDS: PEPCID 20 MG VIAL 20 MG in NS 50 ML IV 50 ML IV SCH ×2 (08:05→21:03)
[2022-01-04] MEDS: ZOFRAN INJ 4 MG VIAL IVP PRN (08:06)
[2022-01-04] MEDS: DEMEROL INJ IVP PRN ×3 (08:06→20:04)
[2022-01-04] MEDS: K-DUR TAB 20 MEQ PO PRN (08:21)
--- NOTE | 2022-01-04 10:35 | DR.H&P ---
H&P History & Physical for Day of: H&P Date: 01/04/22 Chief Complaint Chief Complaint: Abdominal pain Nausea Allergies Allergies Allergy/AdvReac Type Severity Reaction Status Date / Time Penicillins Allergy Verified 01/03/22 15:36 History of Present Illness History of Present Illness: Pt is a 56 year old male past medical history of alcohol abuse, pancreatitis, and chronic back pain presenting with worsening abdominal pain for the past 3 days that is associated with nausea. He does admit to drinking a 6 pack per day of beer. Labs/imaging: Wbc 10.1>8.7, Hgb 15.4, Plt 200, Na 136, K 3.6, Creatinine 0.56, Glucose 147, Lipase 1403, UA negative, CTAP was obtained that revealed: Findings are most consistent with acute interstitial pancreatitis involving the pancreatic head and uncinate process. Pt is admitted for acute pancreatitis. Pt was NPO overnight and is feeling a little better, will change diet to clear liquids. Start on IVF NS@125ml/h, pain control with IV Demerol 25mg Q6h prn, and nausea control with IV zofran 4mg Q6h prn. Will restart some of his home medications. Continue to monitor and follow up labs in the morning. Past Medical History Past Medical History: Hypertension Additional Medical History: ALCOHOL ABUSE, CHRONIC BACK PAIN Past Surgical History Surgical History: Ortho Surgery Additional Surgical History: STEEL PLATE IN LEFT LOWER LEG, NECK FUSION Family History Family Medical History: Cancer and Coronary Artery Disease Social History Does patient currently use any type of tobacco product: Yes Have you used tobacco products in the last 12 months: Yes Type of Tobacco Use: Cigarettes How many years tobacco product used: 40 Does any household member use tobacco: No Alcohol Use: DAILY Drug Use: Prescription Drugs Medications Home Medications: Penicillins Allergy (Verified 01/03/22 15:36) CONTINUE taking the following medications alprazolam 1 mg tablet 1 tab PO BID PRN 01/03/22 [History] celecoxib 200 mg capsule 1 cap PO BID 01/03/22 [History] ondansetron HCl 4 mg tablet 1 tab PO Q6H PRN nausea/vomiting 01/03/22 [History] tizanidine 4 mg tablet 1 tab PO TID PRN 01/03/22 [History] Labs Result Diagrams: 01/04/22 04:10 01/04/22 04:10 Labs: Laboratory WBC 8.7 X10^3/uL (3.6-10.0) 01/04/22 04:10 RBC 4.57 X10^6/uL (4.7-6.0) L 01/04/22 04:10 Hgb 15.4 g/dL (13.5-18.0) 01/04/22 04:10 Hct 44.4 % (42.0-54.0) 01/04/22 04:10 MCV 97.2 fL (80.0-100.0) 01/04/22 04:10 MCH 33.6 pg (27.0-34.0) 01/04/22 04:10 MCHC 34.6 g/dL (33.0-35.0) 01/04/22 04:10 RDW 12.9 % (11.6-16.5) 01/04/22 04:10 Plt Count 200 X10^3/uL (150.0-450.0) 01/04/22 04:10 MPV 8.2 fL (7.4-11.0) 01/04/22 04:10 Neut % (Auto) 68.2 % (42.0-75.0) 01/04/22 04:10 Lymph % (Auto) 20.3 % (21.0-51.0) L 01/04/22 04:10 [place] % (Auto) 9.5 % (0.0-13.0) 01/04/22 04:10 Eos % (Auto) 1.4 % (0.9-2.9) 01/04/22 04:10 Baso % (Auto) 0.6 % (0.2-1.0) 01/04/22 04:10 Neut # (Auto) 5.9 x10^3/uL (2.2-4.8) H 01/04/22 04:10 Lymph # (Auto) 1.8 X10^3/uL (1.3-2.9) 01/04/22 04:10 [place] # (Auto) 0.8 x10^3/uL (0.3-0.8) 01/04/22 04:10 Eos # (Auto) 0.1 x10^3/uL (0.0-0.2) 01/04/22 04:10 Baso # (Auto) 0.1 X10^3/uL (0.0-0.1) 01/04/22 04:10 Absolute Nucleated RBC 0.1 /100WBC 01/04/22 04:10 Sodium 136 mmol/L (136-145) 01/04/22 04:10 Corrected Sodium 137 mmol/L (136-145) 01/04/22 04:10 Potassium 3.6 mmol/L (3.5-5.1) 01/04/22 04:10 Chloride 101 mmol/L (98-107) 01/04/22 04:10 Carbon Dioxide 25.6 mmol/L (21-32) 01/04/22 04:10 BUN 4 mg/dL (7-18) L 01/04/22 04:10 Creatinine 0.56 mg/dL (0.70-1.30) L 01/04/22 04:10 Est GFR (MDRD) Af Amer > 60 (>60) 01/04/22 04:10 Est GFR (MDRD) Non-Af > 60 (>60) 01/04/22 04:10 Glucose 147 mg/dL (65-99) H 01/04/22 04:10 Calcium 8.4 mg/dL (8.5-10.1) L 01/04/22 04:10 Corrected Calcium 9.4 mg/dL (8.5-10.1) 01/04/22 04:10 Magnesium 2.0 mg/dL (1.7-2.9) 01/04/22 04:10 Total Bilirubin 0.50 mg/dL (0.2-1.0) 01/04/22 04:10 AST 21 Units/L (15-37) 01/04/22 04:10 ALT 26 Units/L (12-78) 01/04/22 04:10 Alkaline Phosphatase 133 Units/L (46-116) H 01/04/22 04:10 Ammonia 15 umol/L (11-32) 01/03/22 16:32 Total Protein 6.7 g/dL (6.4-8.2) 01/04/22 04:10 Albumin 2.8 g/dL (3.4-5.0) L 01/04/22 04:10 Globulin 3.9 g/dL (2.5-4.5) 01/04/22 04:10 Albumin/Globulin Ratio 0.7 Ratio (1.1-2.1) L 01/04/22 04:10 Amylase 92 Units/L (25-115) 01/04/22 04:10 Lipase 1403 Units/L (73-393) H 01/04/22 04:10 Specimen Type Clean catch urine 01/03/22 17:33 Urine Color Yellow (YELLOW) 01/03/22 17:33 Urine Appearance Clear (CLEAR) 01/03/22 17:33 Urine pH 7.0 (5.0 - 8.0) 01/03/22 17:33 Ur Specific [place] 1.010 (1.000-1.030) 01/03/22 17:33 Urine Protein Negative (NEGATIVE) 01/03/22 17:33 Urine Glucose (UA) 3+ (NEGATIVE) 01/03/22 17:33 Urine Ketones Negative (NEGATIVE) 01/03/22 17:33 Urine Blood Negative (NEGATIVE) 01/03/22 17:33 Urine Nitrite Negative (NEGATIVE) 01/03/22 17:33 Urine Bilirubin Negative (NEGATIVE) 01/03/22 17:33 Urine Urobilinogen Normal (NORMAL) 01/03/22 17:33 Ur Leukocyte Esterase Negative (NEGATIVE) 01/03/22 17:33 SARS-CoV-2 (PCR) Negative (NEGATIVE) 01/03/22 17:54 Review of Systems Constitutional: No Symptoms Reported Eyes: No Symptoms Reported ENT: No Symptoms Reported Respiratory: No Symptoms Reported Cardiovascular: No Symptoms Reported Gastrointestinal: Nausea and Abdominal Pain Genitourinary: No Symptoms Reported Musculoskeletal: No Symptoms Reported Skin: No Symptoms Reported Neurological: No Symptoms Reported Physical Exam Vital Signs: Temperature 98.0 F Pulse Rate [Apical] 70 Pulse Rate 71 Respiratory Rate 18 Blood Pressure [Left Arm] 188/86 Blood Pressure 186/77 O2 Sat by Pulse Oximetry 95 Oriented: Normal Eyes: Normal Ear: Normal Nose: Normal Throat: Normal Respiratory: Clear Throughout Cardiovascular: Normal : Normal Auscultation: Bowel Sounds: Normal Palpation: Normal Tenderness: Epigastric Skin: Normal Musculoskeletal: Normal Psychiatric: Normal Mood Description: Calm and Appropriate Affect: Normal Speech Pattern: Clear and Appropriate Assessment/Plan (1) Acute pancreatitis: Qualifiers: Acute pancreatitis complication: unspecified Pancreatitis type: alcohol induced Qualified Code(s): K85.20 - Alcohol induced acute pancreatitis without necrosis or infection Status: Acute Plan: Clear liquid diet Pain and nausea control (2) Alcohol use: Status: Acute (3) Abdominal pain: Qualifiers: Abdominal location: generalized Qualified Code(s): R10.84 - Generalized abdominal pain Status: Acute Review H&P Reviewed: Yes Patient was examined?: Yes
[2022-01-04] MEDS ORDERED: XANAX PO PRN (11:47)
[2022-01-04 13:40] VITALS: BMI 22.3
[2022-01-04] MEDS: APRESOLINE INJ 20 MG VIAL IVP PRN ×2 (15:48→23:56)
[2022-01-05] MEDS: NS 1,000 ML IV 1,000 ML IV SCH (02:36)
[2022-01-05 04:37] LABS: BASOPHILS % (AUTO) 0.5 % (0.2-1.0); EOSINOPHILS # (AUTO) 0.1 x10^3/uL (0.0-0.2); EOSINOPHILS % (AUTO) 1.3 % (0.9-2.9); HEMATOCRIT 42.6 % (42.0-54.0); HEMOGLOBIN 14.5 g/dL (13.5-18.0); LYMPHOCYTES # (AUTO) 1.9 X10^3/uL (1.3-2.9); LYMPHOCYTES % (AUTO) 22.7 % (21.0-51.0); MEAN CORPUSCULAR HEMOGLOBIN 33.3 pg (27.0-34.0); MEAN CORPUSCULAR HGB CONC 34.1 g/dL (33.0-35.0); MEAN CORPUSCULAR VOLUME 97.7 fL (80.0-100.0); MEAN PLATELET VOLUME 7.8 fL (7.4-11.0); MONOCYTES # (AUTO) 0.7 x10^3/uL (0.3-0.8); NEUTROPHILS # (AUTO) 5.6 x10^3/uL (2.2-4.8); NEUTROPHILS % (AUTO) 67.5 % (42.0-75.0); RED BLOOD COUNT 4.35 X10^6/uL (4.7-6.0); RED CELL DISTRIBUTION WIDTH 12.9 % (11.6-16.5); WHITE BLOOD COUNT 8.3 X10^3/uL (3.6-10.0)
[2022-01-05 04:48] LABS: ALANINE AMINOTRANSFERASE 25 Units/L (12-78); ALBUMIN 2.8 g/dL (3.4-5.0); ALKALINE PHOSPHATASE 132 Units/L (46-116); ASPARTATE AMINO TRANSFERASE 23 Units/L (15-37); BLOOD UREA NITROGEN 3 mg/dL (7-18); CALCIUM 8.1 mg/dL (8.5-10.1); CARBON DIOXIDE 27.7 mmol/L (21-32); CHLORIDE 103 mmol/L (98-107); COR CA(FOR HYPOALB) 9.1 mg/dL (8.5-10.1); COR NA(FOR HYPERGLY) 137 mmol/L (136-145); CREATININE 0.58 mg/dL (0.70-1.30); LIPASE 929 Units/L (73-393); SODIUM 136 mmol/L (136-145); TOTAL PROTEIN 6.4 g/dL (6.4-8.2); eGFR NON BLACK RACES > 60 (>60)
[2022-01-05] MEDS: K-DUR TAB 20 MEQ PO PRN (05:39)
[2022-01-05 07:37] VITALS: BP 160/82
[2022-01-05] MEDS: PEPCID 20 MG VIAL 20 MG in NS 50 ML IV 50 ML IV SCH (08:30)
== END 2022-01-05 11:25 | disposition home or self-care (01) | DRG 439 ==
LOC: ER 15:36 → INTOOBSV 19:09 → MED/SURG 19:09
PROVIDERS: ADMIT Internal Medicine; ATTEND Internal Medicine

== ENCOUNTER 2023-12-04 02:21 | Observation (INO) ==
[2023-12-04 02:32] VITALS: BMI 21.8
[2023-12-04] MEDS: APRESOLINE INJ 20 MG VIAL IVP ONE ×2 (02:39→06:09)
--- NOTE | 2023-12-04 02:49 | DR.ABDMALE ---
HPI Time seen Time Seen by Provider: 12/04/23 02:47 PCP Primary Care Physician: Teresita Avilez Complaint Chief Complaint Doctors Comments: Patient was brought in by EMS from [place] according to them he stated that he stated he is have abdominal pain for like 3 hours prior to them coming this way. He is a known alcoholic he is obviously been drinking today also he also has hydrocodone which she takes at least 3 a day he got refill about 120 less than 30 days ago and he is out of them already. We will do to workup so this may be a pancreatitis but he looks like he is just drunk he is already taken some Ativan and he was really sleepy we could always wake him up. Chief Complaint:: EMS reports that pt called due to having abdominal pain x3 hours. In triage pt states "it just hurts you gotta give me something for pain". When I asked patient where in his abdomen is the pain and could he describe it he stated "i need pain medicine it just hurts all over. Pt states that he took a xanax today because he ran out of his hydrocodone 3 days ago and he also drank a 6 pack of beer today. Source History provided by:: Pt Mode of arrival Mode of Arrival: EMS Timing Onset of Chief Complaint: 12/04/23 PMH PMH Past Medical History: Yes Past Medical History: Anxiety Past Surgical History: Yes Surgical History: Ortho Surgery Family History History of Family Medical Conditions: Yes Family Medical History: Cancer and Heart Failure Social History Does patient currently use any type of tobacco product: Yes Type of Tobacco Use: Cigarettes Alcohol Use: DAILY Do you use any recreational Drugs:: Yes (marijuana daily) Lives With: Spouse Lives Where: Home Infectious screening Have you traveled outside the country in the last 6 months?: No Isolation: Standard ROS Review of Systems Constitutional: Other (abdominal pain) Eyes: No Symptoms Reported ENTM: No Symptoms Reported Respiratoy: No Symptoms Reported Cardiovascular: No Symptoms Reported Gastrointestinal/Abdominal: Abdominal Pain Genitourinary: No Symptoms Reported Neurological: No Symptoms Reported Musculoskeletal: No Symptoms Reported Integumentary: No Symptoms Reported Hematologic/Lymphatic: No Symptoms Reported Endocrine: No Symptoms Reported Psychiatric: No Symptoms Reported PE Vital Signs Vital Signs: Temp Pulse Resp BP Pulse Ox O2 Del Method 12/04/23 07:31 110 H 97 12/04/23 07:31 168/73 12/04/23 07:30 108 H 97 12/04/23 07:15 101 H 97 12/04/23 07:00 188/84 12/04/23 07:00 113 H 97 12/04/23 06:45 101 H 96 12/04/23 06:30 183/75 12/04/23 06:30 102 H 96 12/04/23 06:21 112 H 97 12/04/23 06:21 213/78 12/04/23 06:15 107 H 97 12/04/23 06:16 20 12/04/23 06:03 102 H 94 L 12/04/23 06:03 218/98 12/04/23 06:00 96 H 95 12/04/23 05:45 92 H 97 12/04/23 05:32 219/104 12/04/23 05:32 97 H 96 12/04/23 05:31 95 H 95 12/04/23 05:15 97 H 98 12/04/23 05:00 87 97 12/04/23 05:00 184/86 12/04/23 04:45 87 97 12/04/23 04:30 89 98 12/04/23 04:30 198/89 12/04/23 04:15 92 H 98 12/04/23 04:00 102 H 99 12/04/23 04:00 201/84 12/04/23 03:45 86 97 12/04/23 03:31 89 99 12/04/23 03:31 195/86 12/04/23 03:30 100 H 97 12/04/23 03:15 86 97 12/04/23 03:10 86 97 12/04/23 03:10 190/80 12/04/23 03:00 86 98 12/04/23 03:00 213/95 12/04/23 02:45 81 97 12/04/23 02:35 79 96 12/04/23 02:23 98.2 F 86 20 226/108 99 Room Air General Limitations: No Limitations General Appearance: Appears Intoxicated and In Distress (mild distress) Head Head Exam: Normal Inspection, Atraumatic and Normocephalic Eyes Eye exam: Normal Appearance and EOMI ENT ENT Exam: Normal Oropharynx and Normal External Ear Exam Neck Neck Exam: Normal Inspection, Full ROM and Trachea Midline Chest Chest Inspection: Normal Inspection and Symmetric Chest Wall Rise Respiratory Respiratory Exam: Normal Lung Sounds Bilat Respiratory Exam: Bilateral: Clear to Auscultation Cardiovascular Cardiovascular Exam: Regular Rate and Normal Rhythm Abdominal Exam Abdominal Exam: Normal Inspection, Normal Bowel Sounds and Soft Rectal Rectal Exam: Deferred Back Back Exam: Normal Inspection Extremeties Extremities Exam: Normal Inspection Neurologic Neurological Exam: Other (anebriated) Psychiatric Psychiatric Exam: Flat Affect Skin Skin Exam: Warm and Dry MDM Differential Diagnosis Differential Diagnosis: Gastritus/PUD, Pancreatitis and Other (comments) (alcoholic,alcohol intoxication,chronic pain syndrome,pancreatitis) COURSE Treatment Treatment: Patient was initially given a liter of fluids he was given Protonix 40 mg IV and subsequently was given Demerol 50 mg IV along with Zofran 4 mg IV. Patient blood pressure continued to be elevated he is given 2 g of hydralazine 10 mg IV and brought it down but he kept on going back up we will get some type of the regimen as to the use of hydralazine to help control his blood pressure. We did do a CT scan of his abdomen pelvis that show the head of the pancreas is enlarged with peripancreatic fluids and inflammation this consistent with acute pancreatitis. He also has some chronic pancreatitis that was seen there. The patient was given a second liter because the utilization review and they said that the patient could be admitted to observation for pancreatitis. I spoke to Dr. Tate at [phone] about this patient and she excepted the patient for admission for observation for treatment of acute pancreatitis. The patient was told about the intent to admit and was agreeable to the observation. [facility] Labs Reviewed Laboratory Results Reviewed?: Yes 12/04/23 03:05 12/04/23 03:05 Laboratory: WBC 10.3 X10^3/uL (3.6-10.0) H 12/04/23 03:05 RBC 5.54 X10^6/uL (4.7-6.0) 12/04/23 03:05 Hgb 18.3 g/dL (13.5-18.0) H 12/04/23 03:05 Hct 54.4 % (42.0-54.0) H 12/04/23 03:05 MCV 98.2 fL (80.0-100.0) 12/04/23 03:05 MCH 33.0 pg (27.0-34.0) 12/04/23 03:05 MCHC 33.6 g/dL (33.0-35.0) 12/04/23 03:05 RDW 13.5 % (11.6-16.5) 12/04/23 03:05 Plt Count 340 X10^3/uL (150.0-450.0) 12/04/23 03:05 MPV 7.4 fL (7.4-11.0) 12/04/23 03:05 Neut % (Auto) 74.2 % (42.0-75.0) 12/04/23 03:05 Lymph % (Auto) 18.2 % (21.0-51.0) L 12/04/23 03:05 [place] % (Auto) 5.0 % (0.0-13.0) 12/04/23 03:05 Eos % (Auto) 2.0 % (0.9-2.9) 12/04/23 03:05 Baso % (Auto) 0.6 % (0.2-1.0) 12/04/23 03:05 Neut # (Auto) 7.7 x10^3/uL (2.2-4.8) H 12/04/23 03:05 Lymph # (Auto) 1.9 X10^3/uL (1.3-2.9) 12/04/23 03:05 [place] # (Auto) 0.5 x10^3/uL (0.3-0.8) 12/04/23 03:05 Eos # (Auto) 0.2 x10^3/uL (0.0-0.2) 12/04/23 03:05 Baso # (Auto) 0.1 X10^3/uL (0.0-0.1) 12/04/23 03:05 Absolute Nucleated RBC 0.0 /100WBC 12/04/23 03:05 Sodium 140 mmol/L (136-145) 12/04/23 03:05 Corrected Sodium 142 mmol/L (136-145) 12/04/23 03:05 Potassium 3.9 mmol/L (3.5-5.1) 12/04/23 03:05 Chloride 102 mmol/L (98-107) 12/04/23 03:05 Carbon Dioxide 26.8 mmol/L (21-32) 12/04/23 03:05 BUN 4 mg/dL (7-18) L 12/04/23 03:05 Creatinine 0.77 mg/dL (0.70-1.30) 12/04/23 03:05 Est GFR (MDRD) Af Amer > 60 (>60) 12/04/23 03:05 Est GFR (MDRD) Non-Af > 60 (>60) 12/04/23 03:05 Glucose 186 mg/dL (65-99) H 12/04/23 03:05 Calcium 8.9 mg/dL (8.5-10.1) 12/04/23 03:05 Corrected Calcium TNP 12/04/23 03:05 Total Bilirubin 0.30 mg/dL (0.2-1.0) 12/04/23 03:05 AST 19 Units/L (15-37) 12/04/23 03:05 ALT 22 Units/L (12-78) 12/04/23 03:05 Alkaline Phosphatase 122 Units/L (46-116) H 12/04/23 03:05 Total Protein 8.0 g/dL (6.4-8.2) 12/04/23 03:05 Albumin 3.5 g/dL (3.4-5.0) 12/04/23 03:05 Globulin 4.5 g/dL (2.5-4.5) 12/04/23 03:05 Albumin/Globulin Ratio 0.8 Ratio (1.1-2.1) L 12/04/23 03:05 Amylase 120 Units/L (25-115) H 12/04/23 03:05 Lipase 379 Units/L (16-77) H 12/04/23 03:05 Urine Opiates Screen TNP 12/04/23 05:26 Urine Methadone Screen Negative (NEG=<300) 12/04/23 05:26 Ur Barbiturates Screen Negative (NEG=<200) 12/04/23 05:26 Ur Phencyclidine Scrn Negative (NEG=<25) 12/04/23 05:26 Ur Amphetamines Screen Negative (NEG=<1000) 12/04/23 05:26 U Benzodiazepines Scrn Negative (NEG=<200) 12/04/23 05:26 Urine Cocaine Screen Negative (NEG=<300) 12/04/23 05:26 U Marijuana (THC) Screen Positive (NEG=<50) A 12/04/23 05:26 Ethyl Alcohol mg/dL 141 mg/dL (0-19.9) H 12/04/23 03:05 Opioid Opioid Risk Tool Age (Bret box if 16-45): No History of Preadolescent Sexual Abuse: No Total: 0 Total Score Risk Category: Low Risk Copyright: [place] predicting aberrant behaviors Discharge Plan Diagnosis Discharge Problem: Abdominal pain, Alcohol use, Acute on chronic pancreatitis Discharge Plan Patient Disposition: ADMITTED INPATIENT Condition: Stable Prescriptions: No Action alprazolam 1 mg tablet 1 mg PO BID PRN hydrocodone-acetaminophen 10-325 mg tablet 1 tab PO QID PRN sucralfate 1 gram tablet 1 g PO BID Qty: 60 0RF pantoprazole 40 mg tablet,delayed release (DR/EC) 40 mg PO QDAY Qty: 30 0RF metoclopramide HCl [Reglan] 10 mg tablet 10 mg PO Q6H PRNQty: 20 0RF Health Concerns: Post Hospitalization: new medications and changes needed to prevent readmission or further decline. Pt educated and given instructions on all concerns. Plan of Treatment: Continue with present treatment and follow up plan. Pt is to keep follow up appointment as instructed and take medications as ordered. Orders to Discharge Patient Discharge Orders: Transfer (Routine); Ordered 12/04/23 Ordered By: Marcos Ramirez Follow ups/Referrals Follow ups/Referrals: Javier Peterson [Primary Care Provider] - 3 days Instructions Stand Alone Forms: Post Hospital Follow Up Care
[2023-12-04] MEDS: NS 1,000 ML IV 1,000 ML IV ONE ×2 (03:07→07:33)
[2023-12-04] MEDS: PROTONIX INJ 40 MG VIAL IVP ONE (03:07)
[2023-12-04 03:16] LABS: BASOPHILS # (AUTO) 0.1 X10^3/uL (0.0-0.1); BASOPHILS % (AUTO) 0.6 % (0.2-1.0); EOSINOPHILS # (AUTO) 0.2 x10^3/uL (0.0-0.2); HEMATOCRIT 54.4 % (42.0-54.0); HEMOGLOBIN 18.3 g/dL (13.5-18.0); LYMPHOCYTES # (AUTO) 1.9 X10^3/uL (1.3-2.9); LYMPHOCYTES % (AUTO) 18.2 % (21.0-51.0); MEAN CORPUSCULAR HGB CONC 33.6 g/dL (33.0-35.0); MEAN CORPUSCULAR VOLUME 98.2 fL (80.0-100.0); MEAN PLATELET VOLUME 7.4 fL (7.4-11.0); MONOCYTES # (AUTO) 0.5 x10^3/uL (0.3-0.8); NEUTROPHILS # (AUTO) 7.7 x10^3/uL (2.2-4.8); NEUTROPHILS % (AUTO) 74.2 % (42.0-75.0); PLATELET COUNT 340 X10^3/uL (150.0-450.0); RED BLOOD COUNT 5.54 X10^6/uL (4.7-6.0); RED CELL DISTRIBUTION WIDTH 13.5 % (11.6-16.5); WHITE BLOOD COUNT 10.3 X10^3/uL (3.6-10.0)
[2023-12-04 03:25] LABS: ALANINE AMINOTRANSFERASE 22 Units/L (12-78); ALBUMIN 3.5 g/dL (3.4-5.0); ALKALINE PHOSPHATASE 122 Units/L (46-116); AMYLASE 120 Units/L (25-115); ASPARTATE AMINO TRANSFERASE 19 Units/L (15-37); BLOOD ALCOHOL 141 mg/dL (0-19.9); BLOOD UREA NITROGEN 4 mg/dL (7-18); CALCIUM 8.9 mg/dL (8.5-10.1); CARBON DIOXIDE 26.8 mmol/L (21-32); CHLORIDE 102 mmol/L (98-107); COR NA(FOR HYPERGLY) 142 mmol/L (136-145); CREATININE 0.77 mg/dL (0.70-1.30); GLUCOSE 186 mg/dL (65-99); POTASSIUM 3.9 mmol/L (3.5-5.1); SODIUM 140 mmol/L (136-145); eGFR NON BLACK RACES > 60 (>60)
[2023-12-04 03:41] LABS: LIPASE 379 Units/L (16-77)
--- NOTE | 2023-12-04 04:22 | CT ---
EXAM: CT ABDOMEN AND PELVIS WITH CONTRAST HISTORY: ABD PAIN, PANCREATITIS; PT HAS HX OF PANCREATITIS, C/O ABD PAIN. SZ: HERNIA REPAIR ; 350 OMNIPAQUE, 1 00 ML COMPARISON: 11/02/2023 TECHNIQUE: Axial images were acquired of the abdomen and pelvis with IV contrast. Sagittal and coronal reformatt ed images were provided. All images were reviewed in a variety of windows and levels. RADIATION REDUCTION TECHNIQUE: Automated exposure control, adjustment of the mA and/or kV according t o patient size, or iterative reconstruction techniques were used. FINDINGS: LOWER THORAX: The visualized lower lung zones are clear. The heart size is within normal limits. Ther e is no evidence of a pericardial effusion. LIVER: No intrahepatic focal lesions are seen. No evidence of intrahepatic or extrahepatic duct dilat ion. GALLBLADDER: The gallbladder is unremarkable. SPLEEN: The spleen enhances homogenously and is unremarkable. PANCREAS: The head of the pancreas is enlarged with peripancreatic fluid and inflammation consistent with acute pancreatitis. There are stippled calcifications present indicative of chronic pancreatiti s. Body and tail are unremarkable. ADRENAL GLANDS: The adrenal glands enhance homogenously and are unremarkable. : The kidneys enhance homogenously. Their collecting system is of normal caliber. URINARY BLADDER: The urinary bladder is unremarkable. There are no soft tissue masses seen in the uri nary bladder. VESSELS: The abdominal aorta is normal in size without evidence of aneurysm or dissection. The celiac artery, superior mesenteric artery, [place] renal arteries, and inferior mesenteric artery are patent . GI: The stomach and small bowel is unremarkable. There are no inflammatory changes seen in the right lower quadrant to suggest secondary signs of acute appendicitis. Normal appendix right lower quadran t. LYMPHNODES AND MESENTERY: There is no evidence of retroperitoneal lymphadenopathy. BONES: The visualized bones demonstrate degenerative changes. There are no concerning lytic or blasti c lesions identified. IMPRESSION: The head of the pancreas is enlarged with peripancreatic fluid and inflammation consistent with acute pancreatitis. Clinical and laboratory correlation advised. Chronic pancreatitis. THIS IS AN ELECTRONICALLY VERIFIED FINAL REPORT 12/04/2023 4:18 AM - Electronically signed by Toby Morales MD
[2023-12-04] MEDS: ZOFRAN INJ 4 MG VIAL IVP ONE (06:16)
[2023-12-04] MEDS: DEMEROL INJ IVP ONE (06:16)
[2023-12-04] MEDS: ZOFRAN INJ 4 MG VIAL IVP PRN (08:33)
[2023-12-04] MEDS: PEPCID 20 MG VIAL 20 MG in NS 50 ML IV 50 ML IV SCH (10:39)
[2023-12-04] MEDS: DEMEROL INJ IVP PRN (10:40)
[2023-12-04] MEDS: D5 NS + KCL 20 MEQ/L 1,000 ML IV SCH (10:40)
[2023-12-04] MEDS: HEPARIN SODIUM INJ 5000 UNITS SC SCH (10:50)
--- NOTE | 2023-12-04 11:40 | DR.H&P ---
H&P History & Physical for Day of: H&P Date: 12/04/23 Chief Complaint Chief Complaint: Abdominal pain, nausea vomiting History of Present Illness History of Present Illness: Mr. Francis is a 58-year-old male with a past medical history of chronic alcohol abuse, recurrent pancreatitis and GERD who presented with worsening abdominal pain associated with nausea and vomiting. He states his symptoms started earlier this morning. He has had recurrent ER visits for similar symptoms. He reports drinking a six-pack beer daily, last intake yesterday. ER workup showed elevated lipase and amylase. CT abdomen showed acute on chronic pancreatitis. His BP was also elevatd, given IV hydralazine. He was admitted for further management. Patient is currently NPO. He did have another episode of vomiting recently. Labs and imaging reviewed: -WBC: 10 K: 3.9 amylase: 120 lipase: 379 -CTAP: Acute on chronic pancreatitis Plan: Continue hydration, keep n.p.o. with ice chips. Continue pain control, replace electrolytes as needed. Continue famotidine IV. Monitor for any signs of alcohol withdrawal. Monitor BP. Monitor a.m. labs and imaging. Past Medical History Past Medical History: Anxiety Additional Medical History: ALCOHOL ABUSE, CHRONIC BACK PAIN Past Surgical History Surgical History: Ortho Surgery Additional Surgical History: STEEL PLATE IN LEFT LOWER LEG, NECK FUSION Family History Family Medical History: Cancer and Heart Failure Social History Does patient currently use any type of tobacco product: Yes Type of Tobacco Use: Cigarettes Alcohol Use: DAILY Medications Home Medications: Home Medications Medication Instructions Recorded Confirmed Type alprazolam 1 mg tablet 1 mg PO BID PRN 11/02/23 12/04/23 History hydrocodone 10 mg-acetaminophen 1 tab PO QID PRN 11/02/23 12/04/23 History 325 mg tablet Allergies Allergies Allergy/AdvReac Type Severity Reaction Status Date / Time Penicillins Allergy Verified 12/04/23 02:34 Labs 12/04/23 03:05 12/04/23 03:05 Labs: Laboratory WBC 10.3 X10^3/uL (3.6-10.0) H 12/04/23 03:05 RBC 5.54 X10^6/uL (4.7-6.0) 12/04/23 03:05 Hgb 18.3 g/dL (13.5-18.0) H 12/04/23 03:05 Hct 54.4 % (42.0-54.0) H 12/04/23 03:05 MCV 98.2 fL (80.0-100.0) 12/04/23 03:05 MCH 33.0 pg (27.0-34.0) 12/04/23 03:05 MCHC 33.6 g/dL (33.0-35.0) 12/04/23 03:05 RDW 13.5 % (11.6-16.5) 12/04/23 03:05 Plt Count 340 X10^3/uL (150.0-450.0) 12/04/23 03:05 MPV 7.4 fL (7.4-11.0) 12/04/23 03:05 Neut % (Auto) 74.2 % (42.0-75.0) 12/04/23 03:05 Lymph % (Auto) 18.2 % (21.0-51.0) L 12/04/23 03:05 [place] % (Auto) 5.0 % (0.0-13.0) 12/04/23 03:05 Eos % (Auto) 2.0 % (0.9-2.9) 12/04/23 03:05 Baso % (Auto) 0.6 % (0.2-1.0) 12/04/23 03:05 Neut # (Auto) 7.7 x10^3/uL (2.2-4.8) H 12/04/23 03:05 Lymph # (Auto) 1.9 X10^3/uL (1.3-2.9) 12/04/23 03:05 [place] # (Auto) 0.5 x10^3/uL (0.3-0.8) 12/04/23 03:05 Eos # (Auto) 0.2 x10^3/uL (0.0-0.2) 12/04/23 03:05 Baso # (Auto) 0.1 X10^3/uL (0.0-0.1) 12/04/23 03:05 Absolute Nucleated RBC 0.0 /100WBC 12/04/23 03:05 Sodium 140 mmol/L (136-145) 12/04/23 03:05 Corrected Sodium 142 mmol/L (136-145) 12/04/23 03:05 Potassium 3.9 mmol/L (3.5-5.1) 12/04/23 03:05 Chloride 102 mmol/L (98-107) 12/04/23 03:05 Carbon Dioxide 26.8 mmol/L (21-32) 12/04/23 03:05 BUN 4 mg/dL (7-18) L 12/04/23 03:05 Creatinine 0.77 mg/dL (0.70-1.30) 12/04/23 03:05 Est GFR (MDRD) Af Amer > 60 (>60) 12/04/23 03:05 Est GFR (MDRD) Non-Af > 60 (>60) 12/04/23 03:05 Glucose 186 mg/dL (65-99) H 12/04/23 03:05 Calcium 8.9 mg/dL (8.5-10.1) 12/04/23 03:05 Corrected Calcium TNP 12/04/23 03:05 Total Bilirubin 0.30 mg/dL (0.2-1.0) 12/04/23 03:05 AST 19 Units/L (15-37) 12/04/23 03:05 ALT 22 Units/L (12-78) 12/04/23 03:05 Alkaline Phosphatase 122 Units/L (46-116) H 12/04/23 03:05 Total Protein 8.0 g/dL (6.4-8.2) 12/04/23 03:05 Albumin 3.5 g/dL (3.4-5.0) 12/04/23 03:05 Globulin 4.5 g/dL (2.5-4.5) 12/04/23 03:05 Albumin/Globulin Ratio 0.8 Ratio (1.1-2.1) L 12/04/23 03:05 Amylase 120 Units/L (25-115) H 12/04/23 03:05 Lipase 379 Units/L (16-77) H 12/04/23 03:05 Urine Opiates Screen TNP 12/04/23 05:26 Urine Methadone Screen Negative (NEG=<300) 12/04/23 05:26 Ur Barbiturates Screen Negative (NEG=<200) 12/04/23 05:26 Ur Phencyclidine Scrn Negative (NEG=<25) 12/04/23 05:26 Ur Amphetamines Screen Negative (NEG=<1000) 12/04/23 05:26 U Benzodiazepines Scrn Negative (NEG=<200) 12/04/23 05:26 Urine Cocaine Screen Negative (NEG=<300) 12/04/23 05:26 U Marijuana (THC) Screen Positive (NEG=<50) A 12/04/23 05:26 Ethyl Alcohol mg/dL 141 mg/dL (0-19.9) H 12/04/23 03:05 Review of Systems Constitutional: Weakness Eyes: No Symptoms Reported ENT: No Symptoms Reported Respiratory: No Symptoms Reported Cardiovascular: No Symptoms Reported Gastrointestinal: Nausea, Vomiting and Abdominal Pain Genitourinary: No Symptoms Reported Musculoskeletal: No Symptoms Reported Skin: No Symptoms Reported Neurological: No Symptoms Reported Physical Exam Vital Signs: Vital Signs Temperature 97.1 F Pulse Rate [Right Brachial] 107 Pulse Rate [Right Brachial] 110 Pulse Rate 110 Pulse Rate 108 Pulse Rate 101 Pulse Rate 113 Pulse Rate 101 Pulse Rate 102 Pulse Rate 112 Pulse Rate 107 Pulse Rate 102 Pulse Rate 96 Pulse Rate 92 Pulse Rate 97 Pulse Rate 95 Pulse Rate 97 Pulse Rate 87 Pulse Rate 87 Pulse Rate 89 Pulse Rate 92 Pulse Rate 102 Pulse Rate 86 Respiratory Rate 20 Respiratory Rate 20 Respiratory Rate 18 Respiratory Rate 20 Respiratory Rate 20 Respiratory Rate 20 Blood Pressure [Right Arm] 175/91 Blood Pressure [Right Arm] 183/80 Blood Pressure 168/73 Blood Pressure 188/84 Blood Pressure 183/75 Blood Pressure 213/78 Blood Pressure 218/98 Blood Pressure 219/104 Blood Pressure 184/86 Blood Pressure 198/89 Blood Pressure 201/84 O2 Sat by Pulse Oximetry 98 O2 Sat by Pulse Oximetry 96 O2 Sat by Pulse Oximetry 97 O2 Sat by Pulse Oximetry 97 O2 Sat by Pulse Oximetry 97 O2 Sat by Pulse Oximetry 97 O2 Sat by Pulse Oximetry 96 O2 Sat by Pulse Oximetry 96 O2 Sat by Pulse Oximetry 97 O2 Sat by Pulse Oximetry 97 O2 Sat by Pulse Oximetry 94 O2 Sat by Pulse Oximetry 95 O2 Sat by Pulse Oximetry 97 O2 Sat by Pulse Oximetry 96 O2 Sat by Pulse Oximetry 95 O2 Sat by Pulse Oximetry 98 O2 Sat by Pulse Oximetry 97 O2 Sat by Pulse Oximetry 97 O2 Sat by Pulse Oximetry 98 O2 Sat by Pulse Oximetry 98 O2 Sat by Pulse Oximetry 99 O2 Sat by Pulse Oximetry 97 Oriented: Normal Eyes: Normal Nose: Normal Respiratory: Clear Throughout Cardiovascular: Normal Auscultation: Bowel Sounds: Normal Tenderness: Epigastric, Periumbilical and Mild Skin: Normal Musculoskeletal: Normal Psychiatric: Normal Mood Description: Calm Affect: Normal Speech Pattern: Clear and Appropriate Assessment/Plan (1) Acute on chronic pancreatitis: Status: Acute (2) Alcohol use: Status: Acute (3) Acute pancreatitis: Qualifiers: Acute pancreatitis complication: unspecified Pancreatitis type: unspecified pancreatitis type Qualified Code(s): K85.90 - Acute pancreatitis without necrosis or infection, unspecified Status: Acute (4) Dehydration: Status: Acute (5) HTN (hypertension): Qualifiers: Hypertension type: primary hypertension Qualified Code(s): I10 - Essential (primary) hypertension Status: Acute
[2023-12-04] MEDS: APRESOLINE INJ 20 MG VIAL IVP PRN (15:32)
[2023-12-04] MEDS ORDERED: PHENOBARBITAL SODIUM INJ 65 MG VIAL IM PRN (16:50)
[2023-12-04] MEDS: PHENOBARBITAL TAB 30 MG (32.4MG) PO SCH (17:44)
[2023-12-04 18:00] LABS: BASOPHILS # (AUTO) 0.1 X10^3/uL (0.0-0.1); HEMOGLOBIN 17.1 g/dL (13.5-18.0); MEAN PLATELET VOLUME 7.6 fL (7.4-11.0)
[2023-12-04 18:05] LABS: BASOPHILS % (AUTO) 0.5 % (0.2-1.0); HEMATOCRIT 51.6 % (42.0-54.0); LYMPHOCYTES # (AUTO) 1.2 X10^3/uL (1.3-2.9); LYMPHOCYTES % (AUTO) 9.2 % (21.0-51.0); MEAN CORPUSCULAR HEMOGLOBIN 32.5 pg (27.0-34.0); MEAN CORPUSCULAR VOLUME 98.3 fL (80.0-100.0); MONOCYTES # (AUTO) 0.6 x10^3/uL (0.3-0.8); NEUTROPHILS # (AUTO) 10.8 x10^3/uL (2.2-4.8); NEUTROPHILS % (AUTO) 85.3 % (42.0-75.0); PLATELET COUNT 357 X10^3/uL (150.0-450.0); RED BLOOD COUNT 5.25 X10^6/uL (4.7-6.0); WHITE BLOOD COUNT 12.6 X10^3/uL (3.6-10.0)
[2023-12-04] MEDS: APRESOLINE INJ 20 MG VIAL ONE (22:08)
[2023-12-04] MEDS: OMNIPAQUE 350 mg/mL 100 mL BTL 100 ML ONE (22:08)
[2023-12-04] MEDS: NS 1,000 ML IV 1,000 ML ONE (22:09)
[2023-12-05 05:05] LABS: BASOPHILS % (AUTO) 0.3 % (0.2-1.0); EOSINOPHILS # (AUTO) 0.2 x10^3/uL (0.0-0.2); EOSINOPHILS % (AUTO) 1.5 % (0.9-2.9); HEMATOCRIT 48.4 % (42.0-54.0); HEMOGLOBIN 15.8 g/dL (13.5-18.0); LYMPHOCYTES # (AUTO) 1.3 X10^3/uL (1.3-2.9); LYMPHOCYTES % (AUTO) 11.7 % (21.0-51.0); MEAN CORPUSCULAR HEMOGLOBIN 32.2 pg (27.0-34.0); MEAN CORPUSCULAR HGB CONC 32.6 g/dL (33.0-35.0); MEAN CORPUSCULAR VOLUME 98.7 fL (80.0-100.0); MEAN PLATELET VOLUME 7.5 fL (7.4-11.0); MONOCYTES # (AUTO) 0.6 x10^3/uL (0.3-0.8); MONOCYTES % (AUTO) 5.3 % (0.0-13.0); NEUTROPHILS # (AUTO) 9.2 x10^3/uL (2.2-4.8); NEUTROPHILS % (AUTO) 81.2 % (42.0-75.0); PLATELET COUNT 313 X10^3/uL (150.0-450.0); RED CELL DISTRIBUTION WIDTH 13.8 % (11.6-16.5); WHITE BLOOD COUNT 11.3 X10^3/uL (3.6-10.0)
[2023-12-05 05:26] LABS: ALANINE AMINOTRANSFERASE 16 Units/L (12-78); ALBUMIN 3.2 g/dL (3.4-5.0); ALKALINE PHOSPHATASE 108 Units/L (46-116); AMYLASE 125 Units/L (25-115); ASPARTATE AMINO TRANSFERASE 14 Units/L (15-37); BLOOD UREA NITROGEN 4 mg/dL (7-18); CALCIUM 8.4 mg/dL (8.5-10.1); CARBON DIOXIDE 28.5 mmol/L (21-32); CHLORIDE 105 mmol/L (98-107); COR NA(FOR HYPERGLY) 143 mmol/L (136-145); GLUCOSE 184 mg/dL (65-99); POTASSIUM 3.7 mmol/L (3.5-5.1); SODIUM 141 mmol/L (136-145); eGFR NON BLACK RACES > 60 (>60)
[2023-12-05 05:58] LABS: LIPASE 386 Units/L (16-77)
[2023-12-05] MEDS ORDERED: CONSULT PHARMACY - POTASSIUM & MAGNESIUM XX SCH (07:00)
[2023-12-05] MEDS: LIBRIUM PO PRN (07:24)
[2023-12-05] MEDS ORDERED: PROTONIX INJ 40 MG VIAL IVP SCH (09:00)
[2023-12-05] MEDS: K-RIDER 10 MEQ/100 ML WATER 10 MEQ/100 ML BAG IV SCH (09:25)
[2023-12-05] MEDS: THIAMINE HCL INJ IM SCH (09:48)
--- NOTE | 2023-12-05 11:19 | PCM.PROG ---
Progress Note Progress Note for Day of Date of Exam: 12/05/23 Subjective Subjective: Patient seen at bedside, no acute events overnight. He states his nausea and vomiting is slightly better. He has not had any episodes overnight. His abdominal pain is slightly better. He would like to try liquids today. He is currently admitted for acute on chronic pancreatitis. Labs and imaging reviewed: -WBC 11.3 potassium 3.7 Plan: Will start clear liquids today. Continue pain control, hydration and antiemetics. Continue alcohol detox protocol as needed. Patient does not seem to be having any tremors or worsening anxiety. Replace electrolytes as per protocol. Monitor a.m. labs and imaging. Past Medical Family Social History Allergies: Allergies Penicillins Allergy (Verified 12/04/23 02:34) Vital Signs and I&O's Vital Signs: Vital Signs Temperature 98.3 F Pulse Rate [Right Brachial] 86 Respiratory Rate 20 Respiratory Rate 20 Respiratory Rate 20 Blood Pressure [Right Arm] 170/80 O2 Sat by Pulse Oximetry 98 Intake and Output: Intake & Output 12/02/23 12/03/23 12/04/23 12/05/23 23:59 23:59 23:59 23:59 Intake Total 1449 / 1449 941 / 941 Balance 1449 / 1449 941 / 941 Physical Exam Oriented: Normal Eyes: Normal Nose: Normal Throat: Normal Respiratory: Normal Cardiovascular: Normal Auscultation: Bowel Sounds: Normal Palpation: Normal Tenderness: Epigastric, Periumbilical and Mild Skin: Normal Musculoskeletal: Normal Psychiatric: Normal Mood Description: Calm Affect: Normal Speech Pattern: Clear and Appropriate Laboratory and Diagnostics 12/05/23 04:38 12/05/23 04:38 Labs: Laboratory WBC 11.3 X10^3/uL (3.6-10.0) H 12/05/23 04:38 RBC 4.90 X10^6/uL (4.7-6.0) 12/05/23 04:38 Hgb 15.8 g/dL (13.5-18.0) 12/05/23 04:38 Hct 48.4 % (42.0-54.0) 12/05/23 04:38 MCV 98.7 fL (80.0-100.0) 12/05/23 04:38 MCH 32.2 pg (27.0-34.0) 12/05/23 04:38 MCHC 32.6 g/dL (33.0-35.0) L 12/05/23 04:38 RDW 13.8 % (11.6-16.5) 12/05/23 04:38 Plt Count 313 X10^3/uL (150.0-450.0) 12/05/23 04:38 MPV 7.5 fL (7.4-11.0) 12/05/23 04:38 Neut % (Auto) 81.2 % (42.0-75.0) H 12/05/23 04:38 Lymph % (Auto) 11.7 % (21.0-51.0) L 12/05/23 04:38 [place] % (Auto) 5.3 % (0.0-13.0) 12/05/23 04:38 Eos % (Auto) 1.5 % (0.9-2.9) 12/05/23 04:38 Baso % (Auto) 0.3 % (0.2-1.0) 12/05/23 04:38 Neut # (Auto) 9.2 x10^3/uL (2.2-4.8) H 12/05/23 04:38 Lymph # (Auto) 1.3 X10^3/uL (1.3-2.9) 12/05/23 04:38 [place] # (Auto) 0.6 x10^3/uL (0.3-0.8) 12/05/23 04:38 Eos # (Auto) 0.2 x10^3/uL (0.0-0.2) 12/05/23 04:38 Baso # (Auto) 0.0 X10^3/uL (0.0-0.1) 12/05/23 04:38 Absolute Nucleated RBC 0.1 /100WBC 12/05/23 04:38 Sodium 141 mmol/L (136-145) 12/05/23 04:38 Corrected Sodium 143 mmol/L (136-145) 12/05/23 04:38 Potassium 3.7 mmol/L (3.5-5.1) 12/05/23 04:38 Chloride 105 mmol/L (98-107) 12/05/23 04:38 Carbon Dioxide 28.5 mmol/L (21-32) 12/05/23 04:38 BUN 4 mg/dL (7-18) L 12/05/23 04:38 Creatinine 0.70 mg/dL (0.70-1.30) 12/05/23 04:38 Est GFR (MDRD) Af Amer > 60 (>60) 12/05/23 04:38 Est GFR (MDRD) Non-Af > 60 (>60) 12/05/23 04:38 Glucose 184 mg/dL (65-99) H 12/05/23 04:38 Calcium 8.4 mg/dL (8.5-10.1) L 12/05/23 04:38 Corrected Calcium 9.0 mg/dL (8.5-10.1) 12/05/23 04:38 Magnesium 2.0 mg/dL (2.0-2.9) 12/05/23 04:38 Total Bilirubin 0.50 mg/dL (0.2-1.0) 12/05/23 04:38 AST 14 Units/L (15-37) L 12/05/23 04:38 ALT 16 Units/L (12-78) 12/05/23 04:38 Alkaline Phosphatase 108 Units/L (46-116) 12/05/23 04:38 Total Protein 7.0 g/dL (6.4-8.2) 12/05/23 04:38 Albumin 3.2 g/dL (3.4-5.0) L 12/05/23 04:38 Globulin 3.8 g/dL (2.5-4.5) 12/05/23 04:38 Albumin/Globulin Ratio 0.8 Ratio (1.1-2.1) L 12/05/23 04:38 Amylase 125 Units/L (25-115) H 12/05/23 04:38 Lipase 386 Units/L (16-77) H 12/05/23 04:38 Urine Opiates Screen TNP 12/04/23 05:26 Urine Methadone Screen Negative (NEG=<300) 12/04/23 05:26 Ur Barbiturates Screen Negative (NEG=<200) 12/04/23 05:26 Ur Phencyclidine Scrn Negative (NEG=<25) 12/04/23 05:26 Ur Amphetamines Screen Negative (NEG=<1000) 12/04/23 05:26 U Benzodiazepines Scrn Negative (NEG=<200) 12/04/23 05:26 Urine Cocaine Screen Negative (NEG=<300) 12/04/23 05:26 U Marijuana (THC) Screen Positive (NEG=<50) A 12/04/23 05:26 Ethyl Alcohol mg/dL < 3 mg/dL (0-19.9) 12/04/23 20:56 Plan (1) Acute on chronic pancreatitis: Status: Acute (2) Alcohol use: Status: Acute (3) Acute pancreatitis: Status: Acute Qualifiers: Pancreatitis type: unspecified pancreatitis type Acute pancreatitis complication: unspecified Qualified Code(s): K85.90 - Acute pancreatitis without necrosis or infection, unspecified (4) Dehydration: Status: Acute (5) HTN (hypertension): Status: Acute Qualifiers: Hypertension type: primary hypertension Qualified Code(s): I10 - Essential (primary) hypertension
[2023-12-05] MEDS ORDERED: NICOTINE PATCH TD ONE (12:34)
[2023-12-05] MEDS: NICOTINE PATCH TD SCH (13:10)
[2023-12-05] MEDS: NS + KCL 20 MEQ/L 1,000 ML IV SCH (13:50)
[2023-12-05] MEDS: ZESTRIL TAB 10 MG PO SCH (13:57)
[2023-12-06 05:07] LABS: BASOPHILS % (AUTO) 0.5 % (0.2-1.0); EOSINOPHILS # (AUTO) 0.3 x10^3/uL (0.0-0.2); EOSINOPHILS % (AUTO) 2.9 % (0.9-2.9); HEMATOCRIT 45.4 % (42.0-54.0); HEMOGLOBIN 15.2 g/dL (13.5-18.0); LYMPHOCYTES # (AUTO) 1.3 X10^3/uL (1.3-2.9); LYMPHOCYTES % (AUTO) 14.5 % (21.0-51.0); MEAN CORPUSCULAR HEMOGLOBIN 32.9 pg (27.0-34.0); MEAN CORPUSCULAR HGB CONC 33.4 g/dL (33.0-35.0); MEAN CORPUSCULAR VOLUME 98.7 fL (80.0-100.0); MEAN PLATELET VOLUME 7.7 fL (7.4-11.0); MONOCYTES # (AUTO) 0.5 x10^3/uL (0.3-0.8); NEUTROPHILS # (AUTO) 6.7 x10^3/uL (2.2-4.8); NEUTROPHILS % (AUTO) 76.1 % (42.0-75.0); PLATELET COUNT 256 X10^3/uL (150.0-450.0); RED CELL DISTRIBUTION WIDTH 14.1 % (11.6-16.5); WHITE BLOOD COUNT 8.8 X10^3/uL (3.6-10.0)
[2023-12-06 05:15] LABS: ALANINE AMINOTRANSFERASE 13 Units/L (12-78); ALBUMIN 2.8 g/dL (3.4-5.0); ALKALINE PHOSPHATASE 87 Units/L (46-116); ASPARTATE AMINO TRANSFERASE 14 Units/L (15-37); BLOOD UREA NITROGEN 2 mg/dL (7-18); CALCIUM 8.1 mg/dL (8.5-10.1); CARBON DIOXIDE 28.6 mmol/L (21-32); CHLORIDE 104 mmol/L (98-107); COR CA(FOR HYPOALB) 9.1 mg/dL (8.5-10.1); COR NA(FOR HYPERGLY) 139 mmol/L (136-145); CREATININE 0.64 mg/dL (0.70-1.30); GLUCOSE 157 mg/dL (65-99); MAGNESIUM 1.8 mg/dL (2.0-2.9); POTASSIUM 3.8 mmol/L (3.5-5.1); SODIUM 138 mmol/L (136-145); TOTAL PROTEIN 6.4 g/dL (6.4-8.2); eGFR NON BLACK RACES > 60 (>60)
[2023-12-06] MEDS ORDERED: CONSULT PHARMACY - POTASSIUM & MAGNESIUM XX SCH (06:00)
[2023-12-06] MEDS: MAG-OX TAB PO SCH (09:18)
[2023-12-06] MEDS: K-DUR TAB 20 MEQ PO SCH (09:18)
[2023-12-06] MEDS: ZESTRIL TAB 10 MG PO SCH (13:29)
[2023-12-06 14:43] VITALS: O2SAT 97
[2023-12-06 15:21] VITALS: BP 196/82; PULSE 87; RESP 19; TEMP 98.1
[2023-12-06] MEDS: CATAPRES TAB 0.1 MG PO ONE (15:38)
[2023-12-06] MEDS: XARELTO PO SCH (15:41)
--- NOTE | 2023-12-07 10:34 | W.DIS.FURT ---
Summary of Discharge Discharge Summary of Date Date of Exam: 12/06/23 Admission Date Date of Admission: 12/04/23 Admission Diagnosis Patient Problems (Updated 12/04/23 @ 11:39 by Digna Juarez) Acute on chronic pancreatitis (Acute) K85.90, K86.1 Alcohol use (Acute) Z72.89 Abdominal pain (Acute) R10.9 Hospital Course: Mr. Francis is a 58-year-old male with a past medical history of chronic alcohol abuse, recurrent pancreatitis and GERD who presented with worsening abdominal pain associated with nausea and vomiting. He states his symptoms started earlier this morning. He has had recurrent ER visits for similar symptoms. He reports drinking a six-pack beer daily, last intake yesterday. ER workup showed elevated lipase and amylase. CT abdomen showed acute on chronic pancreatitis. His BP was also elevated, given IV hydralazine. He was admitted for further management. He was kept NPO, started on hydration and pain control. His labs were monitored daily and electrolytes replaced as needed. He was also started on ETOH detox protocol. He did not experience any DTs or tremors. His diet was gradually advanced and he was tolerating liquids well. He did not have any further emesis. He was also started on lisinopril for HTN. He was told to monitor BP daily and discuss with PCP. He was stable for discharge and will f/u with PCP as scheduled. Vital Signs: Vital Signs (72 hours) 12/04/23 02:23 12/04/23 02:35 12/04/23 02:45 Temperature 98.2 F Pulse Rate 86 79 81 Pulse Rate [Right Brachial] Respiratory Rate 20 Blood Pressure 226/108 Blood Pressure [Right Arm] O2 Sat by Pulse Oximetry 99 96 97 Oxygen Delivery Method Room Air 12/04/23 03:00 12/04/23 03:00 12/04/23 03:10 Temperature Pulse Rate 86 Pulse Rate [Right Brachial] Respiratory Rate Blood Pressure 213/95 190/80 Blood Pressure [Right Arm] O2 Sat by Pulse Oximetry 98 Oxygen Delivery Method 12/04/23 03:10 12/04/23 03:15 12/04/23 03:30 Temperature Pulse Rate 86 86 100 H Pulse Rate [Right Brachial] Respiratory Rate Blood Pressure Blood Pressure [Right Arm] O2 Sat by Pulse Oximetry 97 97 97 Oxygen Delivery Method 12/04/23 03:31 12/04/23 03:31 12/04/23 03:45 Temperature Pulse Rate 89 86 Pulse Rate [Right Brachial] Respiratory Rate Blood Pressure 195/86 Blood Pressure [Right Arm] O2 Sat by Pulse Oximetry 99 97 Oxygen Delivery Method 12/04/23 04:00 12/04/23 04:00 12/04/23 04:15 Temperature Pulse Rate 102 H 92 H Pulse Rate [Right Brachial] Respiratory Rate Blood Pressure 201/84 Blood Pressure [Right Arm] O2 Sat by Pulse Oximetry 99 98 Oxygen Delivery Method 12/04/23 04:30 12/04/23 04:30 12/04/23 04:45 Temperature Pulse Rate 89 87 Pulse Rate [Right Brachial] Respiratory Rate Blood Pressure 198/89 Blood Pressure [Right Arm] O2 Sat by Pulse Oximetry 98 97 Oxygen Delivery Method 12/04/23 05:00 12/04/23 05:00 12/04/23 05:15 Temperature Pulse Rate 87 97 H Pulse Rate [Right Brachial] Respiratory Rate Blood Pressure 184/86 Blood Pressure [Right Arm] O2 Sat by Pulse Oximetry 97 98 Oxygen Delivery Method 12/04/23 05:31 12/04/23 05:32 12/04/23 05:32 Temperature Pulse Rate 95 H 97 H Pulse Rate [Right Brachial] Respiratory Rate Blood Pressure 219/104 Blood Pressure [Right Arm] O2 Sat by Pulse Oximetry 95 96 Oxygen Delivery Method 12/04/23 05:45 12/04/23 06:00 12/04/23 06:03 Temperature Pulse Rate 92 H 96 H Pulse Rate [Right Brachial] Respiratory Rate Blood Pressure 218/98 Blood Pressure [Right Arm] O2 Sat by Pulse Oximetry 97 95 Oxygen Delivery Method 12/04/23 06:03 12/04/23 06:16 12/04/23 06:15 Temperature Pulse Rate 102 H 107 H Pulse Rate [Right Brachial] Respiratory Rate 20 Blood Pressure Blood Pressure [Right Arm] O2 Sat by Pulse Oximetry 94 L 97 Oxygen Delivery Method 12/04/23 06:21 12/04/23 06:21 12/04/23 06:30 Temperature Pulse Rate 112 H 102 H Pulse Rate [Right Brachial] Respiratory Rate Blood Pressure 213/78 Blood Pressure [Right Arm] O2 Sat by Pulse Oximetry 97 96 Oxygen Delivery Method 12/04/23 06:30 12/04/23 06:45 12/04/23 07:00 Temperature Pulse Rate 101 H 113 H Pulse Rate [Right Brachial] Respiratory Rate Blood Pressure 183/75 Blood Pressure [Right Arm] O2 Sat by Pulse Oximetry 96 97 Oxygen Delivery Method 12/04/23 07:00 12/04/23 07:15 12/04/23 07:30 Temperature Pulse Rate 101 H 108 H Pulse Rate [Right Brachial] Respiratory Rate Blood Pressure 188/84 Blood Pressure [Right Arm] O2 Sat by Pulse Oximetry 97 97 Oxygen Delivery Method 12/04/23 07:31 12/04/23 07:31 12/04/23 08:33 Temperature Pulse Rate 110 H Pulse Rate [Right Brachial] Respiratory Rate 20 Blood Pressure 168/73 Blood Pressure [Right Arm] O2 Sat by Pulse Oximetry 97 Oxygen Delivery Method 12/04/23 09:30 12/04/23 10:40 12/04/23 09:30 Temperature 97.1 F L Pulse Rate Pulse Rate [Right Brachial] 110 H Respiratory Rate 20 20 18 Blood Pressure Blood Pressure [Right Arm] 183/80 O2 Sat by Pulse Oximetry 96 Oxygen Delivery Method Room Air 12/04/23 10:00 12/04/23 09:30 12/04/23 12:00 Temperature 97.8 F Pulse Rate Pulse Rate [Right Brachial] 107 H 97 H Respiratory Rate 20 18 Blood Pressure Blood Pressure [Right Arm] 175/91 176/78 O2 Sat by Pulse Oximetry 98 93 L Oxygen Delivery Method Room Air Room Air Room Air 12/04/23 11:10 12/04/23 15:42 12/04/23 15:30 Temperature 97.4 F L Pulse Rate Pulse Rate [Right Brachial] 90 Respiratory Rate 20 22 18 Blood Pressure Blood Pressure [Right Arm] 182/84 O2 Sat by Pulse Oximetry 92 L Oxygen Delivery Method Room Air 12/04/23 15:35 12/04/23 15:40 12/04/23 15:45 Temperature Pulse Rate Pulse Rate [Right Brachial] Respiratory Rate Blood Pressure Blood Pressure [Right Arm] 214/101 208/95 188/69 O2 Sat by Pulse Oximetry Oxygen Delivery Method 12/04/23 15:50 12/04/23 15:55 12/04/23 16:00 Temperature Pulse Rate Pulse Rate [Right Brachial] Respiratory Rate Blood Pressure Blood Pressure [Right Arm] 183/82 183/81 167/57 O2 Sat by Pulse Oximetry Oxygen Delivery Method 12/04/23 16:10 12/04/23 16:20 12/04/23 16:12 Temperature Pulse Rate Pulse Rate [Right Brachial] Respiratory Rate 20 Blood Pressure Blood Pressure [Right Arm] 157/71 166/78 O2 Sat by Pulse Oximetry Oxygen Delivery Method 12/05/23 02:30 12/04/23 19:00 12/04/23 21:06 Temperature Pulse Rate Pulse Rate [Right Brachial] Respiratory Rate 20 18 Blood Pressure Blood Pressure [Right Arm] O2 Sat by Pulse Oximetry Oxygen Delivery Method Room Air 12/04/23 20:00 12/04/23 20:30 12/04/23 21:30 Temperature 98.0 F Pulse Rate Pulse Rate [Right Brachial] 93 H Respiratory Rate 18 Blood Pressure Blood Pressure [Right Arm] 190/90 202/86 168/75 O2 Sat by Pulse Oximetry 94 L Oxygen Delivery Method 12/04/23 20:40 12/04/23 21:00 12/04/23 20:50 Temperature Pulse Rate Pulse Rate [Right Brachial] Respiratory Rate Blood Pressure Blood Pressure [Right Arm] 188/86 168/88 182/86 O2 Sat by Pulse Oximetry Oxygen Delivery Method 12/04/23 21:10 12/04/23 23:20 12/05/23 00:23 Temperature 97.8 F Pulse Rate Pulse Rate [Right Brachial] 93 H Respiratory Rate 20 Blood Pressure Blood Pressure [Right Arm] 177/79 170/82 170/80 O2 Sat by Pulse Oximetry 93 L Oxygen Delivery Method 12/04/23 21:36 12/05/23 02:40 12/05/23 03:05 Temperature Pulse Rate Pulse Rate [Right Brachial] Respiratory Rate 20 Blood Pressure Blood Pressure [Right Arm] 190/80 162/74 O2 Sat by Pulse Oximetry Oxygen Delivery Method 12/05/23 03:00 12/05/23 04:00 12/05/23 07:25 Temperature 98.3 F Pulse Rate Pulse Rate [Right Brachial] 86 Respiratory Rate 20 20 20 Blood Pressure Blood Pressure [Right Arm] 170/80 O2 Sat by Pulse Oximetry 98 Oxygen Delivery Method 12/05/23 07:55 12/05/23 08:00 12/05/23 12:00 Temperature 97.4 F L 98.5 F Pulse Rate Pulse Rate [Right Brachial] 86 92 H Respiratory Rate 20 16 16 Blood Pressure Blood Pressure [Right Arm] 184/96 177/77 O2 Sat by Pulse Oximetry 98 98 Oxygen Delivery Method Room Air Room Air 12/05/23 16:00 12/05/23 07:00 12/05/23 17:48 Temperature 97.7 F Pulse Rate Pulse Rate [Right Brachial] 94 H Respiratory Rate 18 18 Blood Pressure Blood Pressure [Right Arm] 170/78 O2 Sat by Pulse Oximetry 98 Oxygen Delivery Method Room Air Room Air 12/05/23 18:17 12/05/23 19:00 12/05/23 20:00 Temperature 98.3 F Pulse Rate Pulse Rate [Right Brachial] 87 Respiratory Rate 20 20 Blood Pressure Blood Pressure [Right Arm] 150/67 O2 Sat by Pulse Oximetry 96 Oxygen Delivery Method Room Air Room Air 12/05/23 22:37 12/06/23 02:42 12/06/23 00:00 Temperature 98.0 F Pulse Rate Pulse Rate [Right Brachial] 85 Respiratory Rate 20 20 20 Blood Pressure Blood Pressure [Right Arm] 156/74 O2 Sat by Pulse Oximetry 97 Oxygen Delivery Method Room Air 12/05/23 23:07 12/06/23 03:12 12/06/23 04:00 Temperature 97.7 F Pulse Rate Pulse Rate [Right Brachial] 75 Respiratory Rate 20 20 20 Blood Pressure Blood Pressure [Right Arm] 146/68 O2 Sat by Pulse Oximetry 93 L Oxygen Delivery Method Room Air 12/06/23 07:28 12/06/23 09:27 12/06/23 07:00 Temperature Pulse Rate Pulse Rate [Right Brachial] Respiratory Rate 18 18 Blood Pressure Blood Pressure [Right Arm] O2 Sat by Pulse Oximetry Oxygen Delivery Method Room Air 12/06/23 08:00 12/06/23 12:00 12/06/23 15:20 Temperature 97.0 F L 97.2 F L 98.1 F Pulse Rate Pulse Rate [Right Brachial] 70 73 87 Respiratory Rate 18 17 19 Blood Pressure Blood Pressure [Right Arm] 167/79 200/94 196/82 O2 Sat by Pulse Oximetry 99 97 97 Oxygen Delivery Method Room Air Room Air Room Air Labs: Laboratory Last Values WBC 8.8 X10^3/uL (3.6-10.0) 12/06/23 04:36 RBC 4.60 X10^6/uL (4.7-6.0) L 12/06/23 04:36 Hgb 15.2 g/dL (13.5-18.0) 12/06/23 04:36 Hct 45.4 % (42.0-54.0) 12/06/23 04:36 MCV 98.7 fL (80.0-100.0) 12/06/23 04:36 MCH 32.9 pg (27.0-34.0) 12/06/23 04:36 MCHC 33.4 g/dL (33.0-35.0) 12/06/23 04:36 RDW 14.1 % (11.6-16.5) 12/06/23 04:36 Plt Count 256 X10^3/uL (150.0-450.0) 12/06/23 04:36 MPV 7.7 fL (7.4-11.0) 12/06/23 04:36 Neut % (Auto) 76.1 % (42.0-75.0) H 12/06/23 04:36 Lymph % (Auto) 14.5 % (21.0-51.0) L 12/06/23 04:36 [place] % (Auto) 6.0 % (0.0-13.0) 12/06/23 04:36 Eos % (Auto) 2.9 % (0.9-2.9) 12/06/23 04:36 Baso % (Auto) 0.5 % (0.2-1.0) 12/06/23 04:36 Neut # (Auto) 6.7 x10^3/uL (2.2-4.8) H 12/06/23 04:36 Lymph # (Auto) 1.3 X10^3/uL (1.3-2.9) 12/06/23 04:36 [place] # (Auto) 0.5 x10^3/uL (0.3-0.8) 12/06/23 04:36 Eos # (Auto) 0.3 x10^3/uL (0.0-0.2) H 12/06/23 04:36 Baso # (Auto) 0.0 X10^3/uL (0.0-0.1) 12/06/23 04:36 Absolute Nucleated RBC 0.2 /100WBC 12/06/23 04:36 Sodium 138 mmol/L (136-145) 12/06/23 04:36 Corrected Sodium 139 mmol/L (136-145) 12/06/23 04:36 Potassium 3.8 mmol/L (3.5-5.1) 12/06/23 04:36 Chloride 104 mmol/L (98-107) 12/06/23 04:36 Carbon Dioxide 28.6 mmol/L (21-32) 12/06/23 04:36 BUN 2 mg/dL (7-18) L 12/06/23 04:36 Creatinine 0.64 mg/dL (0.70-1.30) L 12/06/23 04:36 Est GFR (MDRD) Af Amer > 60 (>60) 12/06/23 04:36 Est GFR (MDRD) Non-Af > 60 (>60) 12/06/23 04:36 Glucose 157 mg/dL (65-99) H 12/06/23 04:36 Calcium 8.1 mg/dL (8.5-10.1) L 12/06/23 04:36 Corrected Calcium 9.1 mg/dL (8.5-10.1) 12/06/23 04:36 Magnesium 1.8 mg/dL (2.0-2.9) L 12/06/23 04:36 Total Bilirubin 0.50 mg/dL (0.2-1.0) 12/06/23 04:36 AST 14 Units/L (15-37) L 12/06/23 04:36 ALT 13 Units/L (12-78) 12/06/23 04:36 Alkaline Phosphatase 87 Units/L (46-116) 12/06/23 04:36 Total Protein 6.4 g/dL (6.4-8.2) 12/06/23 04:36 Albumin 2.8 g/dL (3.4-5.0) L 12/06/23 04:36 Globulin 3.6 g/dL (2.5-4.5) 12/06/23 04:36 Albumin/Globulin Ratio 0.8 Ratio (1.1-2.1) L 12/06/23 04:36 Amylase 125 Units/L (25-115) H 12/05/23 04:38 Lipase 386 Units/L (16-77) H 12/05/23 04:38 Urine Opiates Screen TNP 12/04/23 05:26 Urine Methadone Screen Negative (NEG=<300) 12/04/23 05:26 Ur Barbiturates Screen Negative (NEG=<200) 12/04/23 05:26 Ur Phencyclidine Scrn Negative (NEG=<25) 12/04/23 05:26 Ur Amphetamines Screen Negative (NEG=<1000) 12/04/23 05:26 U Benzodiazepines Scrn Negative (NEG=<200) 12/04/23 05:26 Urine Cocaine Screen Negative (NEG=<300) 12/04/23 05:26 U Marijuana (THC) Screen Positive (NEG=<50) A 12/04/23 05:26 Ethyl Alcohol mg/dL < 3 mg/dL (0-19.9) 12/04/23 20:56 Reason For Visit: ACUTE ON CHRONIC PANCREATITIS, ABDOMINAL PAIN Discharge Diagnosis All Active Problems (Updated 12/04/23 @ 11:39 by Digna Juarez) HTN (hypertension) (Acute) Dehydration (Acute) Acute on chronic pancreatitis (Acute) Alcohol use (Acute) Acute pancreatitis (Acute) Abdominal pain (Acute) Plan of Treatment: Continue with present treatment and follow up plan. Pt is to keep follow up appointment as instructed and take medications as ordered. Discharge Medications Discharge Medications: Penicillins Allergy (Verified 12/04/23 02:34) New Prescriptions clonidine HCl 0.1 mg tablet 0.1 mg PO QDAY PRN 30 days #30 tabs 12/06/23 [Rx] lisinopril 20 mg tablet 20 mg PO QDAY 30 days #30 tabs 12/06/23 [Rx] Discharge Disposition Discharge Disposition: home Discharge Condition: stable Discharge Plan Discharge Plan Hospital Course: Mr. Francis is a 58-year-old male with a past medical history of chronic alcohol abuse, recurrent pancreatitis and GERD who presented with worsening abdominal pain associated with nausea and vomiting. He states his symptoms started earlier this morning. He has had recurrent ER visits for similar symptoms. He reports drinking a six-pack beer daily, last intake yesterday. ER workup showed elevated lipase and amylase. CT abdomen showed acute on chronic pancreatitis. His BP was also elevated, given IV hydralazine. He was admitted for further management. He was kept NPO, started on hydration and pain control. His labs were monitored daily and electrolytes replaced as needed. He was also started on ETOH detox protocol. He did not experience any DTs or tremors. His diet was gradually advanced and he was tolerating liquids well. He did not have any further emesis. He was also started on lisinopril for HTN. He was told to monitor BP daily and discuss with PCP. He was stable for discharge and will f/u with PCP as scheduled. Patient Disposition: 01 HOME, SELF-CARE Condition: Stable Health Concerns: Post Hospitalization: new medications and changes needed to prevent readmission or further decline. Pt educated and given instructions on all concerns. Care Plan Goals: Problem: Pain/Alteration in Comfort Goal: Improve/ Resolve Pain; Achieve Pain Tolerance Instructions: Take pain medications as prescribed. Contact your primary care provider if your pain is unrelieved or worsens. Follow up with primary care provider as directed. Plan of Treatment: Continue with present treatment and follow up plan. Pt is to keep follow up appointment as instructed and take medications as ordered. Prescription drug monitoring program results: PDMP reviewed and no concerns identified Prescriptions: New lisinopril 20 mg tablet 20 mg PO QDAY 30 Days Qty: 30 0RF clonidine HCl 0.1 mg tablet 0.1 mg PO QDAY PRN30 Days Qty: 30 0RF Rx Instructions: Take if blood pressure greater than 160/90 Continued alprazolam 1 mg tablet 1 mg PO BID PRN hydrocodone-acetaminophen 10-325 mg tablet 1 tab PO QID PRN sucralfate 1 gram tablet 1 g PO BID Qty: 60 0RF pantoprazole 40 mg tablet,delayed release (DR/EC) 40 mg PO QDAY Qty: 30 0RF metoclopramide HCl [Reglan] 10 mg tablet 10 mg PO Q6H PRNQty: 20 0RF Orders to Discharge Patient Discharge Orders: Discharge (Routine); Ordered 12/06/23 Ordered By: Digna Juarez Follow ups/Referrals Follow ups/Referrals: ARIAS JENKINS [Nurse Practitioner] - 12/14/23 10:40 am Instructions Instructions: How to Take Your Blood Pressure, [id number], Acute Pancreatitis, [id number], How to Take Your Blood Pressure, Form - Blood Pressure Record Sheet, Acute Pancreatitis, Hypertension Stand Alone Forms: Excuse From Work or School, Post Hospital Follow Up Care
[2023-12-07] MEDS ORDERED: PHENOBARBITAL TAB 15 MG (16.2MG) PO SCH (17:00)
== END 2023-12-06 16:25 | disposition home or self-care (01) ==
LOC: MED/SURG 02:21 → ER 02:21 → MED/SURG 09:31
PROVIDERS: ADMIT Internal Medicine; ATTEND Internal Medicine
DX: R74.01 Elevation of levels of liver transaminase levels; I10 Essential (primary) hypertension; Z59.19 Other inadequate housing; F12.90 Cannabis use, unspecified, uncomplicated; R10.84 Generalized abdominal pain; Z72.0 Tobacco use; K86.0 Alcohol-induced chronic pancreatitis; F10.220 Alcohol dependence with intoxication, uncomplicated; K21.9 Gastro-esophageal reflux disease without esophagitis; F41.8 Other specified anxiety disorders; K85.20 Alcohol induced acute pancreatitis without necrosis or infection; Z59.86 Financial insecurity; E86.0 Dehydration; R11.2 Nausea with vomiting, unspecified; Z65.8 Other specified problems related to psychosocial circumstances; Y90.9 Presence of alcohol in blood, level not specified

== ENCOUNTER 2024-02-14 16:14 | Observation (INO) ==
--- NOTE | 2024-02-14 16:38 | DR.ABDMALE ---
HPI Time seen Time Seen by Provider: 02/14/24 16:37 COVID-19 Coronavirus risk:travel/contact w/high risk person: No Has patient experienced Coronavirus symptoms: No Source History provided by:: Pt PMH PMH Past Medical History: Anxiety Past Surgical History: Yes Surgical History: Ortho Surgery Family History Family Medical History: Cancer and Heart Failure Social History Do you use any recreational Drugs:: Yes (marijuana daily) Travel Risk Coronavirus risk:travel/contact w/high risk person: No Has patient experienced Coronavirus symptoms: No PE Vital Signs Vital Signs: Temp Pulse Pulse Resp BP BP Pulse Ox 02/14/24 19:42 72 18 205/96 98 02/14/24 19:36 18 02/14/24 16:19 118 H 98 02/14/24 16:25 98.3 F 110 H 20 135/79 98 O2 Del Method 02/14/24 19:42 Room Air 02/14/24 19:36 02/14/24 16:19 02/14/24 16:25 Room Air ROR Labs Reviewed 02/14/24 17:03 02/14/24 17:03 Laboratory: WBC 11.7 X10^3/uL (3.6-10.0) H 02/14/24 17:03 RBC 5.66 X10^6/uL (4.7-6.0) 02/14/24 17:03 Hgb 17.8 g/dL (13.5-18.0) 02/14/24 17:03 Hct 54.2 % (42.0-54.0) H 02/14/24 17:03 MCV 95.7 fL (80.0-100.0) 02/14/24 17:03 MCH 31.5 pg (27.0-34.0) 02/14/24 17:03 MCHC 32.9 g/dL (33.0-35.0) L 02/14/24 17:03 RDW 15.7 % (11.6-16.5) 02/14/24 17:03 Plt Count 272 X10^3/uL (150.0-450.0) 02/14/24 17:03 MPV 7.6 fL (7.4-11.0) 02/14/24 17:03 Neut % (Auto) 77.0 % (42.0-75.0) H 02/14/24 17:03 Lymph % (Auto) 14.7 % (21.0-51.0) L 02/14/24 17:03 [place] % (Auto) 6.8 % (0.0-13.0) 02/14/24 17:03 Eos % (Auto) 1.2 % (0.9-2.9) 02/14/24 17:03 Baso % (Auto) 0.3 % (0.2-1.0) 02/14/24 17:03 Neut # (Auto) 9.0 x10^3/uL (2.2-4.8) H 02/14/24 17:03 Lymph # (Auto) 1.7 X10^3/uL (1.3-2.9) 02/14/24 17:03 [place] # (Auto) 0.8 x10^3/uL (0.3-0.8) 02/14/24 17:03 Eos # (Auto) 0.1 x10^3/uL (0.0-0.2) 02/14/24 17:03 Baso # (Auto) 0.0 X10^3/uL (0.0-0.1) 02/14/24 17:03 Absolute Nucleated RBC 0.1 /100WBC 02/14/24 17:03 Sodium 134 mmol/L (136-145) L 02/14/24 17:03 Corrected Sodium 136 mmol/L (136-145) 02/14/24 17:03 Potassium 3.9 mmol/L (3.5-5.1) 02/14/24 17:03 Chloride 98 mmol/L (98-107) 02/14/24 17:03 Carbon Dioxide 28.8 mmol/L (21-32) 02/14/24 17:03 BUN 5 mg/dL (7-18) L 02/14/24 17:03 Creatinine 0.73 mg/dL (0.70-1.30) 02/14/24 17:03 Est GFR (MDRD) Af Amer > 60 (>60) 02/14/24 17:03 Est GFR (MDRD) Non-Af > 60 (>60) 02/14/24 17:03 Glucose 196 mg/dL (65-99) H 02/14/24 17:03 Calcium 8.9 mg/dL (8.5-10.1) 02/14/24 17:03 Corrected Calcium 9.5 mg/dL (8.5-10.1) 02/14/24 17:03 Total Bilirubin 0.30 mg/dL (0.2-1.0) 02/14/24 17:03 AST 15 Units/L (15-37) 02/14/24 17:03 ALT 14 Units/L (12-78) 02/14/24 17:03 Alkaline Phosphatase 107 Units/L (46-116) 02/14/24 17:03 Total Protein 7.3 g/dL (6.4-8.2) 02/14/24 17:03 Albumin 3.2 g/dL (3.4-5.0) L 02/14/24 17:03 Globulin 4.1 g/dL (2.5-4.5) 02/14/24 17:03 Albumin/Globulin Ratio 0.8 Ratio (1.1-2.1) L 02/14/24 17:03 Amylase 141 Units/L (25-115) H 02/14/24 17:03 Lipase 478 Units/L (16-77) H 02/14/24 17:03 Specimen Type Clean catch urine 02/14/24 18:03 Urine Color Dark yellow (YELLOW) 02/14/24 18:03 Urine Appearance Hazy (CLEAR) 02/14/24 18:03 Urine pH 6.0 (5.0 - 8.0) 02/14/24 18:03 Ur Specific [place] 1.015 (1.000-1.030) 02/14/24 18:03 Urine Protein 3+ (NEGATIVE) 02/14/24 18:03 Urine Glucose (UA) Negative (NEGATIVE) 02/14/24 18:03 Urine Ketones Negative (NEGATIVE) 02/14/24 18:03 Urine Blood 1+ (NEGATIVE) 02/14/24 18:03 Urine Nitrite Negative (NEGATIVE) 02/14/24 18:03 Urine Bilirubin Negative (NEGATIVE) 02/14/24 18:03 Urine Urobilinogen Normal (NORMAL) 02/14/24 18:03 Ur Leukocyte Esterase 1+ (NEGATIVE) 02/14/24 18:03 Urine RBC 5-10 /HPF (0-3) A 02/14/24 18:03 Urine WBC 3-5 /HPF (0-5) 02/14/24 18:03 Ur Squamous Epith Cells Few /HPF (NEGATIVE) 02/14/24 18:03 Amorphous Sediment 1+ /HPF (NEGATIVE) 02/14/24 18:03 Urine Bacteria Trace /HPF (NEGATIVE) 02/14/24 18:03 Urine Mucus Many /HPF (NEGATIVE) 02/14/24 18:03 Urine Yeast Few /HPF (NEGATIVE) 02/14/24 18:03 Ur Culture Indicated? No/not indicated 02/14/24 18:03 Opioid Opioid Risk Tool Age (Bret box if 16-45): No History of Preadolescent Sexual Abuse: No Total: 0 Total Score Risk Category: Low Risk Copyright: [place] predicting aberrant behaviors Discharge Plan Diagnosis Discharge Problem: Acute pancreatitis, Abdominal pain Discharge Plan Patient Disposition: 01 HOME, SELF-CARE Condition: Stable Orders to Discharge Patient Discharge Orders: Transfer (Routine); Ordered 02/14/24 Ordered By: MARSHALL DANIELS
[2024-02-14 17:24] LABS: BASOPHILS % (AUTO) 0.3 % (0.2-1.0); EOSINOPHILS # (AUTO) 0.1 x10^3/uL (0.0-0.2); EOSINOPHILS % (AUTO) 1.2 % (0.9-2.9); HEMATOCRIT 54.2 % (42.0-54.0); HEMOGLOBIN 17.8 g/dL (13.5-18.0); LYMPHOCYTES # (AUTO) 1.7 X10^3/uL (1.3-2.9); LYMPHOCYTES % (AUTO) 14.7 % (21.0-51.0); MEAN CORPUSCULAR HEMOGLOBIN 31.5 pg (27.0-34.0); MEAN CORPUSCULAR HGB CONC 32.9 g/dL (33.0-35.0); MEAN CORPUSCULAR VOLUME 95.7 fL (80.0-100.0); MEAN PLATELET VOLUME 7.6 fL (7.4-11.0); MONOCYTES # (AUTO) 0.8 x10^3/uL (0.3-0.8); MONOCYTES % (AUTO) 6.8 % (0.0-13.0); PLATELET COUNT 272 X10^3/uL (150.0-450.0); RED BLOOD COUNT 5.66 X10^6/uL (4.7-6.0); RED CELL DISTRIBUTION WIDTH 15.7 % (11.6-16.5); WHITE BLOOD COUNT 11.7 X10^3/uL (3.6-10.0)
[2024-02-14 17:36] LABS: ALANINE AMINOTRANSFERASE 14 Units/L (12-78); ALBUMIN 3.2 g/dL (3.4-5.0); ALKALINE PHOSPHATASE 107 Units/L (46-116); AMYLASE 141 Units/L (25-115); ASPARTATE AMINO TRANSFERASE 15 Units/L (15-37); BLOOD UREA NITROGEN 5 mg/dL (7-18); CALCIUM 8.9 mg/dL (8.5-10.1); CARBON DIOXIDE 28.8 mmol/L (21-32); CHLORIDE 98 mmol/L (98-107); COR CA(FOR HYPOALB) 9.5 mg/dL (8.5-10.1); COR NA(FOR HYPERGLY) 136 mmol/L (136-145); CREATININE 0.73 mg/dL (0.70-1.30); GLUCOSE 196 mg/dL (65-99); POTASSIUM 3.9 mmol/L (3.5-5.1); SODIUM 134 mmol/L (136-145); TOTAL PROTEIN 7.3 g/dL (6.4-8.2); eGFR NON BLACK RACES > 60 (>60)
[2024-02-14 17:47] LABS: LIPASE 478 Units/L (16-77)
[2024-02-14 18:16] LABS: BILIRUBIN,URINE NEGATIVE (NEGATIVE); BLOOD/HEMOGLOBIN,URINE 1+ (NEGATIVE); GLUCOSE, URINE NEGATIVE (NEGATIVE); KETONES,URINE NEGATIVE (NEGATIVE); LEUKOCYTE ESTERASE ,URINE 1+ (NEGATIVE); NITRITES,URINE NEGATIVE (NEGATIVE); PROTEIN,URINE 3+ (NEGATIVE); UROBILINOGEN,URINE NORMAL (NORMAL)
[2024-02-14 18:17] LABS: APPEARANCE,URINE HAZY (CLEAR); COLOR,URINE DARK YELLOW (YELLOW)
--- NOTE | 2024-02-14 18:19 | CT ---
EXAM: CT ABDOMEN AND PELVIS WITHOUT INTRAVENOUS CONTRAST HISTORY: Pain to bilateral lower quadrants, onset 4 days ago. Patient states he thinks he has kidney infection because his urine is really dark and has a foul odor. TECHNIQUE: Spiral axial CT images are obtained through the abdomen and pelvis without the administrat ion of intravenous contrast. Additional coronal and sagittal reformatted images are reconstructed. DOSIMETRY: Total DLP 201.27 mGycm; CTDI 3.78 mGy COMPARISON: CT abdomen and pelvis dated December 04, 2023. FINDINGS: PANCREAS: There is again evidence for complex appearing enlargement of the head of the pancreas with punctate calcifications within the pancreaticoduodenal groove in keeping with chronic (and/or acute) paraduodenal pancreatitis in the appropriate clinical setting; DDx includes pancreatic head adenocarc inoma, duodenal adenocarcinoma, and ampullary carcinoma. The body and tail of the pancreas appear gr ossly unremarkable (stable), with interval development of peripancreatic fat stranding consistent wit h acute pancreatitis in the appropriate clinical setting. No evidence for pancreatic pseudocyst is s een. GASTROINTESTINAL TRACT: There is again evidence for severe circumferential thickening of the distal g astric mucosa and duodenal sweep consistent with secondary gastroduodenitis. Recommend clinical rivera elation and appropriate follow-up evaluation to complete resolution since infiltrating neoplastic dis ease (e.g. from pancreatic Cancer) cannot be entirely excluded. Axial image 28-47. There is no evid ence for bowel herniation, bowel obstruction, appendicitis, colitis or diverticulitis. GENITOURINARY SYSTEM: Nonspecific bilateral mild perinephric streaky changes (stable finding), of unc ertain etiology and clinical significance. Consider follow-up postcontrast CT if UTI or pyelonephriti s is clinically suspected. The kidneys are otherwise unremarkable. There is no ureteral calculus or s tigmata of obstructive uropathy. The urinary bladder is grossly unremarkable for a non-dedicated exa m. There is prostatomegaly (4 cm transverse) in keeping with BPH; concomitant occult neoplastic dise ase not excluded. BILIARY SYSTEM: Dilated gallbladder (stable appearance); nonspecific finding which may represent sequ sarah of NPO status, but cannot rule out cholecystitis in the appropriate clinical setting. Consider f ollow-up evaluation with HIDA scan to rule out cystic duct obstruction and acute cholecystitis as cli nically warranted. CT ABDOMEN: Severe aortoiliac atherosclerotic disease, without aneurysm formation. The liver, spleen, pancreas, adrenal glands, and inferior vena cava are within normal limits for a noncontrast CT scan. There is no intra-abdominal or retroperitoneal lymphadenopathy, free fluid, or free air seen. No a bdominal herniation is noted. CT PELVIS: No pelvic sidewall or inguinal lymphadenopathy is seen. No inguinal herniation is noted . No free fluid or free air is seen. BONES AND JOINTS: Severe multilevel DDD is seen in the distal thoracic and lumbar spine with most sev ere DDD at L2-S1, with disc bulges +/- HNPs, and resultant spinal canal and neuroforaminal stenoses w ith probable exiting nerve root impingements. Sagittal image 29-41; axial image 36-59. The visualiz ed bony structures are otherwise within normal limits. LUNG BASES: The lung bases are clear. IMPRESSION: 1. Again evidence for complex appearing enlargement of the head of the pancreas with punctate calcif ications within the pancreaticoduodenal groove in keeping with chronic (and/or acute) paraduodenal pa ncreatitis in the appropriate clinical setting; DDx includes pancreatic head adenocarcinoma, duodenal adenocarcinoma, and ampullary carcinoma. 2. Interval development of peripancreatic fat stranding around the body and tail of the pancreas, co nsistent with acute pancreatitis in the appropriate clinical setting. 3. Again evidence for severe circumferential thickening of the distal gastric mucosa and duodenal sw eep consistent with secondary gastroduodenitis. Recommend clinical correlation and appropriate follo w-up evaluation to complete resolution since infiltrating neoplastic disease (e.g. from pancreatic Ca ncer) cannot be entirely excluded. Axial image 28-47. 4. No evidence for bowel herniation, bowel obstruction, appendicitis, colitis or diverticulitis. 5. Dilated gallbladder (stable appearance); nonspecific finding which may represent sequela of NPO s tatus, but cannot rule out cholecystitis in the appropriate clinical setting. Consider follow-up harjinder luation with HIDA scan to rule out cystic duct obstruction and acute cholecystitis as clinically divya anted. 6. Nonspecific bilateral mild perinephric streaky changes (stable finding), of uncertain etiology an d clinical significance. Consider follow-up postcontrast CT if UTI or pyelonephritis is clinically eddy spected. The kidneys are otherwise unremarkable. 7. No ureteral calculus or stigmata of obstructive uropathy. 8. Prostatomegaly (4 cm transverse) in keeping with BPH; concomitant occult neoplastic disease not e xcluded. 9. Severe multilevel DDD is seen in the distal thoracic and lumbar spine with most severe DDD at L2- S1, with disc bulges +/- HNPs, and resultant spinal canal and neuroforaminal stenoses with probable e xiting nerve root impingements. Sagittal image 29-41; axial image 36-59. THIS IS AN ELECTRONICALLY VERIFIED FINAL REPORT 02/14/2024 6:16 PM - Electronically signed by Elaine Levin MD
[2024-02-14 18:25] LABS: BACTERIA,URINE TRACE /HPF (NEGATIVE); SQUAMOUS EPITHELIAL CELL,UR FEW /HPF (NEGATIVE); YEAST,URINE FEW /HPF (NEGATIVE)
[2024-02-14] MEDS: NS 1,000 ML IV 1,000 ML IV SCH (19:17)
[2024-02-14] MEDS: APRESOLINE INJ 20 MG VIAL IVP ONE (19:35)
[2024-02-14] MEDS: ZOFRAN INJ 4 MG VIAL IVP ONE (19:35)
[2024-02-14] MEDS: DEMEROL INJ IVP PRN (19:36)
[2024-02-14] MEDS ORDERED: NS 1,000 ML IV 1,000 ML IV SCH (20:00)
[2024-02-14] MEDS: APRESOLINE INJ 20 MG VIAL IVP PRN (23:07)
[2024-02-14 23:14] VITALS: BMI 22.1
[2024-02-15] MEDS: NS 1,000 ML IV 1,000 ML ONE (01:00)
[2024-02-15] MEDS: ZOFRAN INJ 4 MG VIAL ONE (01:01)
[2024-02-15] MEDS: APRESOLINE INJ 20 MG VIAL ONE (01:01)
[2024-02-15] MEDS: CATAPRES-TTS-2 TD SCH (01:29)
[2024-02-15] MEDS: CATAPRES-TTS-2 TD ONE (01:32)
[2024-02-15 05:17] LABS: BASOPHILS # (AUTO) 0.1 X10^3/uL (0.0-0.1); BASOPHILS % (AUTO) 0.5 % (0.2-1.0); EOSINOPHILS # (AUTO) 0.1 x10^3/uL (0.0-0.2); EOSINOPHILS % (AUTO) 1.2 % (0.9-2.9); HEMATOCRIT 52.3 % (42.0-54.0); HEMOGLOBIN 17.1 g/dL (13.5-18.0); LYMPHOCYTES # (AUTO) 1.6 X10^3/uL (1.3-2.9); LYMPHOCYTES % (AUTO) 14.4 % (21.0-51.0); MEAN CORPUSCULAR HEMOGLOBIN 31.3 pg (27.0-34.0); MEAN CORPUSCULAR HGB CONC 32.8 g/dL (33.0-35.0); MEAN CORPUSCULAR VOLUME 95.5 fL (80.0-100.0); MEAN PLATELET VOLUME 7.9 fL (7.4-11.0); MONOCYTES # (AUTO) 0.8 x10^3/uL (0.3-0.8); MONOCYTES % (AUTO) 7.2 % (0.0-13.0); NEUTROPHILS # (AUTO) 8.6 x10^3/uL (2.2-4.8); NEUTROPHILS % (AUTO) 76.7 % (42.0-75.0); PLATELET COUNT 241 X10^3/uL (150.0-450.0); RED BLOOD COUNT 5.48 X10^6/uL (4.7-6.0); RED CELL DISTRIBUTION WIDTH 15.3 % (11.6-16.5); WHITE BLOOD COUNT 11.2 X10^3/uL (3.6-10.0)
[2024-02-15 05:37] LABS: ALANINE AMINOTRANSFERASE 13 Units/L (12-78); ALBUMIN 2.8 g/dL (3.4-5.0); ALKALINE PHOSPHATASE 100 Units/L (46-116); AMYLASE 130 Units/L (25-115); ASPARTATE AMINO TRANSFERASE 15 Units/L (15-37); BLOOD UREA NITROGEN 4 mg/dL (7-18); CALCIUM 8.7 mg/dL (8.5-10.1); CARBON DIOXIDE 27.7 mmol/L (21-32); CHLORIDE 101 mmol/L (98-107); COR CA(FOR HYPOALB) 9.7 mg/dL (8.5-10.1); COR NA(FOR HYPERGLY) 138 mmol/L (136-145); CREATININE 0.56 mg/dL (0.70-1.30); GLUCOSE 133 mg/dL (65-99); MAGNESIUM 1.7 mg/dL (2.0-2.9); POTASSIUM 3.9 mmol/L (3.5-5.1); SODIUM 137 mmol/L (136-145); TOTAL PROTEIN 6.7 g/dL (6.4-8.2); eGFR NON BLACK RACES > 60 (>60)
[2024-02-15] MEDS: ZOFRAN INJ 4 MG VIAL IVP PRN (05:39)
[2024-02-15 05:44] LABS: LIPASE 389 Units/L (16-77)
[2024-02-15] MEDS: APRESOLINE INJ 20 MG VIAL IVP PRN (06:24)
[2024-02-15] MEDS ORDERED: CONSULT PHARMACY - POTASSIUM & MAGNESIUM XX SCH (08:00)
[2024-02-15] MEDS: MAGNESIUM SULFATE 1 GRAM/100 mL PREMIX 1 G/100 ML BAG IV SCH (09:24)
[2024-02-15] MEDS ORDERED: KAOPECTATE (NEW FORMULA) PO PRN (09:28)
[2024-02-15] MEDS ORDERED: LIBRIUM PO PRN (09:28)
[2024-02-15] MEDS ORDERED: MAALOX or MYLANTA PO PRN (09:28)
[2024-02-15] MEDS ORDERED: PHENOBARBITAL SODIUM INJ 65 MG VIAL IM PRN (09:28)
[2024-02-15] MEDS: MORPHINE SULFATE INJ 2 MG INJ IVP PRN (09:45)
[2024-02-15] MEDS: PROTONIX INJ 40 MG VIAL IVP SCH (09:45)
[2024-02-15] MEDS: MILK OF MAGNESIA PO PRN (09:51)
[2024-02-15] MEDS: CIPRO IV 400 MG PREMIX* 400 MG/200 ML IV.SOLN. IV SCH (09:52)
[2024-02-15 09:55] LABS: BASOPHILS % (AUTO) 0.2 % (0.2-1.0); EOSINOPHILS # (AUTO) 0.1 x10^3/uL (0.0-0.2); EOSINOPHILS % (AUTO) 1.2 % (0.9-2.9); HEMATOCRIT 51.4 % (42.0-54.0); HEMOGLOBIN 17.2 g/dL (13.5-18.0); LYMPHOCYTES # (AUTO) 1.3 X10^3/uL (1.3-2.9); LYMPHOCYTES % (AUTO) 12.4 % (21.0-51.0); MEAN CORPUSCULAR HEMOGLOBIN 31.8 pg (27.0-34.0); MEAN CORPUSCULAR HGB CONC 33.5 g/dL (33.0-35.0); MEAN CORPUSCULAR VOLUME 95.2 fL (80.0-100.0); MEAN PLATELET VOLUME 7.6 fL (7.4-11.0); MONOCYTES # (AUTO) 0.7 x10^3/uL (0.3-0.8); MONOCYTES % (AUTO) 6.7 % (0.0-13.0); NEUTROPHILS # (AUTO) 8.2 x10^3/uL (2.2-4.8); NEUTROPHILS % (AUTO) 79.5 % (42.0-75.0); PLATELET COUNT 243 X10^3/uL (150.0-450.0); RED CELL DISTRIBUTION WIDTH 15.7 % (11.6-16.5); WHITE BLOOD COUNT 10.4 X10^3/uL (3.6-10.0)
[2024-02-15] MEDS ORDERED: PHENOBARBITAL TAB 15 MG (16.2MG) PO SCH (10:00)
[2024-02-15] MEDS: PHENOBARBITAL TAB 30 MG (32.4MG) PO SCH (10:24)
[2024-02-15] MEDS: THIAMINE HCL INJ IM SCH (10:25)
--- NOTE | 2024-02-15 10:34 | DR.H&P ---
H&P History & Physical for Day of: H&P Date: 02/15/24 Chief Complaint Chief Complaint: abdominal pain History of Present Illness History of Present Illness: Mr Francis is a 58-year-old male with a past medical history of alcohol abuse, chronic back pain, anxiety and chronic pancreatitis presented with worsening abdominal pain and nausea. He reports having the symptoms for a few days. Denies diarrhea, fever or chills. He has a history of recurrent pancreatitis. He was admitted in November for similar symptoms. He denies having gallbladder issues. He does drink a six pack beer daily. He does not see head bone grinder. In the ER, lipase was elevated at 478, CT abdomen pelvis showed acute on chronic pancreatitis and gastroduodenitis. Patient was started on IV fluids, n.p.o. and pain medication. He states current pain medication is not helping control his pain. He has not had any vomiting overnight. Labs/imaging reviewed: -WBC 11.2 Hgb 17.1 K:3.9 BUN/cr: 4/0.56 Ma.7 Lipase: 478 -CTAP reviewed Plan: Continue hydration, n.p.o. for now. Change pain medication to morphine 2 mg every 4 hours as needed. Will add Cipro and Flagyl. Will order gallbladder ultrasound. Start patient on detox protocol due to history of chronic alcohol use. Replace electrolytes as needed. Monitor a.m. labs and imaging. Past Medical History Past Medical History: Anxiety Additional Medical History: ALCOHOL ABUSE, CHRONIC BACK PAIN Past Surgical History Surgical History: Other Additional Surgical History: STEEL PLATE IN LEFT LOWER LEG, NECK FUSION Family History Family Medical History: Cancer and Sudden Cardiac Social History Does patient currently use any type of tobacco product: Yes Type of Tobacco Use: Cigarettes Does any household member use tobacco: No Alcohol Use: Heavy Drug Use: None Medications Home Medications: Home Medications Medication Instructions Recorded Confirmed Type alprazolam 1 mg tablet 1 mg PO BID PRN 11/02/23 02/14/24 History hydrocodone 10 mg-acetaminophen 1 tab PO QID PRN 11/02/23 02/14/24 History 325 mg tablet pantoprazole 20 mg tablet,delayed 20 mg PO BID 02/14/24 02/14/24 History release tizanidine 4 mg tablet 4 mg PO TID 02/14/24 02/14/24 History Allergies Allergies Allergy/AdvReac Type Severity Reaction Status Date / Time Penicillins Allergy Verified 12/04/23 02:34 Labs 02/15/24 09:45 02/15/24 04:51 Labs: Laboratory WBC 10.4 X10^3/uL (3.6-10.0) H 02/15/24 09:45 RBC 5.40 X10^6/uL (4.7-6.0) 02/15/24 09:45 Hgb 17.2 g/dL (13.5-18.0) 02/15/24 09:45 Hct 51.4 % (42.0-54.0) 02/15/24 09:45 MCV 95.2 fL (80.0-100.0) 02/15/24 09:45 MCH 31.8 pg (27.0-34.0) 02/15/24 09:45 MCHC 33.5 g/dL (33.0-35.0) 02/15/24 09:45 RDW 15.7 % (11.6-16.5) 02/15/24 09:45 Plt Count 243 X10^3/uL (150.0-450.0) 02/15/24 09:45 MPV 7.6 fL (7.4-11.0) 02/15/24 09:45 Neut % (Auto) 79.5 % (42.0-75.0) H 02/15/24 09:45 Lymph % (Auto) 12.4 % (21.0-51.0) L 02/15/24 09:45 [place] % (Auto) 6.7 % (0.0-13.0) 02/15/24 09:45 Eos % (Auto) 1.2 % (0.9-2.9) 02/15/24 09:45 Baso % (Auto) 0.2 % (0.2-1.0) 02/15/24 09:45 Neut # (Auto) 8.2 x10^3/uL (2.2-4.8) H 02/15/24 09:45 Lymph # (Auto) 1.3 X10^3/uL (1.3-2.9) 02/15/24 09:45 [place]t # (Auto) 0.7 x10^3/uL (0.3-0.8) 02/15/24 09:45 Eos # (Auto) 0.1 x10^3/uL (0.0-0.2) 02/15/24 09:45 Baso # (Auto) 0.0 X10^3/uL (0.0-0.1) 02/15/24 09:45 Absolute Nucleated RBC 0.1 /100WBC 02/15/24 09:45 Sodium 137 mmol/L (136-145) 02/15/24 04:51 Corrected Sodium 138 mmol/L (136-145) 02/15/24 04:51 Potassium 3.9 mmol/L (3.5-5.1) 02/15/24 04:51 Chloride 101 mmol/L (98-107) 02/15/24 04:51 Carbon Dioxide 27.7 mmol/L (21-32) 02/15/24 04:51 BUN 4 mg/dL (7-18) L 02/15/24 04:51 Creatinine 0.56 mg/dL (0.70-1.30) L 02/15/24 04:51 Est GFR (MDRD) Af Amer > 60 (>60) 02/15/24 04:51 Est GFR (MDRD) Non-Af > 60 (>60) 02/15/24 04:51 Glucose 133 mg/dL (65-99) H 02/15/24 04:51 Calcium 8.7 mg/dL (8.5-10.1) 02/15/24 04:51 Corrected Calcium 9.7 mg/dL (8.5-10.1) 02/15/24 04:51 Magnesium 1.7 mg/dL (2.0-2.9) L 02/15/24 04:51 Total Bilirubin 0.40 mg/dL (0.2-1.0) 02/15/24 04:51 AST 15 Units/L (15-37) 02/15/24 04:51 ALT 13 Units/L (12-78) 02/15/24 04:51 Alkaline Phosphatase 100 Units/L (46-116) 02/15/24 04:51 Total Protein 6.7 g/dL (6.4-8.2) 02/15/24 04:51 Albumin 2.8 g/dL (3.4-5.0) L 02/15/24 04:51 Globulin 3.9 g/dL (2.5-4.5) 02/15/24 04:51 Albumin/Globulin Ratio 0.7 Ratio (1.1-2.1) L 02/15/24 04:51 Amylase 130 Units/L (25-115) H 02/15/24 04:51 Lipase 389 Units/L (16-77) H 02/15/24 04:51 Specimen Type Clean catch urine 02/14/24 18:03 Urine Color Dark yellow (YELLOW) 02/14/24 18:03 Urine Appearance Hazy (CLEAR) 02/14/24 18:03 Urine pH 6.0 (5.0 - 8.0) 02/14/24 18:03 Ur Specific [place] 1.015 (1.000-1.030) 02/14/24 18:03 Urine Protein 3+ (NEGATIVE) 02/14/24 18:03 Urine Glucose (UA) Negative (NEGATIVE) 02/14/24 18:03 Urine Ketones Negative (NEGATIVE) 02/14/24 18:03 Urine Blood 1+ (NEGATIVE) 02/14/24 18:03 Urine Nitrite Negative (NEGATIVE) 02/14/24 18:03 Urine Bilirubin Negative (NEGATIVE) 02/14/24 18:03 Urine Urobilinogen Normal (NORMAL) 02/14/24 18:03 Ur Leukocyte Esterase 1+ (NEGATIVE) 02/14/24 18:03 Urine RBC 5-10 /HPF (0-3) A 02/14/24 18:03 Urine WBC 3-5 /HPF (0-5) 02/14/24 18:03 Ur Squamous Epith Cells Few /HPF (NEGATIVE) 02/14/24 18:03 Amorphous Sediment 1+ /HPF (NEGATIVE) 02/14/24 18:03 Urine Bacteria Trace /HPF (NEGATIVE) 02/14/24 18:03 Urine Mucus Many /HPF (NEGATIVE) 02/14/24 18:03 Urine Yeast Few /HPF (NEGATIVE) 02/14/24 18:03 Ur Culture Indicated? No/not indicated 02/14/24 18:03 Ethyl Alcohol mg/dL < 3 mg/dL (0-19.9) 02/15/24 09:45 Review of Systems Constitutional: No Symptoms Reported Eyes: No Symptoms Reported ENT: No Symptoms Reported Respiratory: No Symptoms Reported Cardiovascular: No Symptoms Reported Gastrointestinal: Nausea, Vomiting and Abdominal Pain Genitourinary: No Symptoms Reported Musculoskeletal: Back Pain Skin: No Symptoms Reported Neurological: No Symptoms Reported Physical Exam Vital Signs: Vital Signs Temperature 98.0 F Temperature 98.6 F Pulse Rate [Right Brachial] 101 Pulse Rate [Right Brachial] 75 Respiratory Rate 18 Respiratory Rate 18 Respiratory Rate 18 Respiratory Rate 20 Respiratory Rate 18 Blood Pressure [Right Arm] 185/82 Blood Pressure [Right Arm] 189/86 O2 Sat by Pulse Oximetry 99 O2 Sat by Pulse Oximetry 98 Oriented: Normal Eyes: Normal Throat: Normal Respiratory: Clear Throughout Cardiovascular: Normal Auscultation: Bowel Sounds: Normal Tenderness: Periumbilical and Mild Skin: Normal Musculoskeletal: Back:Lumbar and Back:Paraspinous Psychiatric: Normal Mood Description: Calm Affect: Normal Speech Pattern: Clear and Appropriate Assessment/Plan (1) Acute on chronic pancreatitis: Status: Acute (2) Duodenitis: Status: Acute (3) Abdominal pain: Qualifiers: Abdominal location: unspecified location Qualified Code(s): R10.9 - Unspecified abdominal pain Status: Acute (4) Dehydration: Status: Acute (5) HTN (hypertension): Qualifiers: Hypertension type: primary hypertension Qualified Code(s): I10 - Essential (primary) hypertension Status: Acute (6) Alcohol use: Status: Acute Review H&P Reviewed: Yes Patient was examined?: Yes
[2024-02-15] MEDS: CATAPRES TAB 0.1 MG PO SCH (11:02)
[2024-02-15] MEDS: FLAGYL IV PREMIX 500 MG BAG 500 MG/100 ML BAG IV SCH (11:03)
--- NOTE | 2024-02-15 12:17 | US ---
EXAM:GALL BLADDERHISTORY:abdominal pain, f/u CT findings; ABD PAIN, FU CT ABD FINDINGSCOMPARISON:02/14/2024TECHNIQUE:Jennifer sampson bynum scale and color flow Doppler images of the right upper quadrant were obtained.FINDINGS:The liver is normal in size and normal in echotexture. No focal identifiable hepatic mass or intrahepatic biliary ductal dilatation.Gallbladder sludge. No gallbladder wall thickening or pericholecystic fluid. The sonographic Otrres's sign is reported as negative by the research methodologist. The common bile duct is unremarkable measuring 0.4 cm.Limited visualized portions of the pancreas and IVC are unremarkable.The right kidney appears normal in size measuring up to 4.4 cm. No stones or hydronephrosis.IMPRESSION:Gallbladder sludge without evidence of acute cholecystitis.Pancreatic head mass is not well visualized due to overlying bowel gas and could be better evaluated with multiphase MRI.THIS IS AN ELECTRONICALLY VERIFIED FINAL REPORT02/15/2024 12:13 PM - Electronically signed by Kevin Thomas MD
[2024-02-15 16:17] LABS: BILIRUBIN,URINE NEGATIVE (NEGATIVE); BLOOD/HEMOGLOBIN,URINE NEGATIVE (NEGATIVE); GLUCOSE, URINE NEGATIVE (NEGATIVE); KETONES,URINE 2+ (NEGATIVE); LEUKOCYTE ESTERASE ,URINE NEGATIVE (NEGATIVE); NITRITES,URINE NEGATIVE (NEGATIVE); PROTEIN,URINE 1+ (NEGATIVE); UROBILINOGEN,URINE NORMAL (NORMAL)
[2024-02-15 16:20] LABS: APPEARANCE,URINE CLEAR (CLEAR); COLOR,URINE YELLOW (YELLOW)
[2024-02-15 16:23] LABS: BACTERIA,URINE TRACE /HPF (NEGATIVE); RBC,URINE 0-2 /HPF (0-3); SQUAMOUS EPITHELIAL CELL,UR RARE /HPF (NEGATIVE)
[2024-02-15] MEDS: AMBIEN PO SCH (20:47)
[2024-02-15] MEDS: COLACE CAP 100 MG PO SCH (20:48)
--- NOTE | 2024-02-16 05:55 | RAD ---
EXAM: CHEST, PA/LAT ADULT HISTORY: detox, pancreatitis, abd pain; COMPARISON: None FINDINGS: The cardiomediastinal silhouette is normal in size. No acute airspace disease. No pneumothorax or effusion. No acute osseous abnormality. IMPRESSION: No acute cardiopulmonary disease. THIS IS AN ELECTRONICALLY VERIFIED FINAL REPORT 02/16/2024 5:52 AM - Electronically signed by Kevin Thomas MD
[2024-02-16 06:05] LABS: BASOPHILS % (AUTO) 0.6 % (0.2-1.0); EOSINOPHILS # (AUTO) 0.2 x10^3/uL (0.0-0.2); EOSINOPHILS % (AUTO) 2.2 % (0.9-2.9); HEMATOCRIT 43.7 % (42.0-54.0); HEMOGLOBIN 14.4 g/dL (13.5-18.0); LYMPHOCYTES # (AUTO) 1.5 X10^3/uL (1.3-2.9); MEAN CORPUSCULAR HEMOGLOBIN 31.6 pg (27.0-34.0); MEAN CORPUSCULAR HGB CONC 33.1 g/dL (33.0-35.0); MEAN CORPUSCULAR VOLUME 95.5 fL (80.0-100.0); MEAN PLATELET VOLUME 7.9 fL (7.4-11.0); MONOCYTES # (AUTO) 0.6 x10^3/uL (0.3-0.8); MONOCYTES % (AUTO) 7.1 % (0.0-13.0); NEUTROPHILS # (AUTO) 5.6 x10^3/uL (2.2-4.8); NEUTROPHILS % (AUTO) 71.1 % (42.0-75.0); PLATELET COUNT 198 X10^3/uL (150.0-450.0); RED BLOOD COUNT 4.58 X10^6/uL (4.7-6.0); RED CELL DISTRIBUTION WIDTH 15.5 % (11.6-16.5); WHITE BLOOD COUNT 7.9 X10^3/uL (3.6-10.0)
[2024-02-16 06:24] LABS: ALANINE AMINOTRANSFERASE 14 Units/L (12-78); ALBUMIN 2.4 g/dL (3.4-5.0); ALKALINE PHOSPHATASE 83 Units/L (46-116); ASPARTATE AMINO TRANSFERASE 17 Units/L (15-37); BLOOD UREA NITROGEN 3 mg/dL (7-18); CARBON DIOXIDE 27.1 mmol/L (21-32); CHLORIDE 101 mmol/L (98-107); COR CA(FOR HYPOALB) 9.3 mg/dL (8.5-10.1); COR NA(FOR HYPERGLY) 136 mmol/L (136-145); CREATININE 0.64 mg/dL (0.70-1.30); GLUCOSE 165 mg/dL (65-99); POTASSIUM 3.6 mmol/L (3.5-5.1); SODIUM 134 mmol/L (136-145); TOTAL PROTEIN 5.6 g/dL (6.4-8.2); eGFR NON BLACK RACES > 60 (>60)
[2024-02-16] MEDS: CONSULT PHARMACY - POTASSIUM & MAGNESIUM XX SCH (06:47)
[2024-02-16] MEDS: DUONEB 0.5 MG/3 MG (3 mL) NEB ONE (06:51)
[2024-02-16] MEDS: K-DUR TAB 20 MEQ PO SCH (09:05)
[2024-02-16 09:53] VITALS: PULSE 68; O2SAT 97
[2024-02-16 11:21] VITALS: RESP 18
[2024-02-16 12:10] VITALS: BP 163/71; TEMP 98.2
[2024-02-16] MEDS: ROCEPHIN VIAL 1 GRAM 1 G in NS 100 ML IV 100 ML IV SCH (13:29)
--- NOTE | 2024-02-17 16:21 | W.DIS.FURT ---
Summary of Discharge Discharge Summary of Date Date of Exam: 02/16/24 Admission Date Date of Admission: 02/14/24 Admission Diagnosis Patient Problems (Updated 02/15/24 @ 10:34 by Digna Juarez) Acute pancreatitis (Acute) K85.90 Abdominal pain (Acute) R10.9 Hospital Course: Mr Francis is a 58-year-old male with a past medical history of alcohol abuse, chronic back pain, anxiety and chronic pancreatitis presented with worsening abdominal pain and nausea. He reports having the symptoms for a few days. Denies diarrhea, fever or chills. He has a history of recurrent pancreatitis. He was admitted in November for similar symptoms. He denies having gallbladder issues. He does drink a six pack beer daily. He does not see supervisor composing room. In the ER, lipase was elevated at 478, CT abdomen pelvis showed acute on chronic pancreatitis and gastroduodenitis. Patient was started on IV fluids, n.p.o. and pain medication. He was also started on IV antibiotics. His labs were monitored daily and electrolytes replace as needed. Gallbladder ultrasound did not show acute cholecystitis but did show sludge. He was also started on detox protocol due to history of alcohol use. His blood pressure was also elevated, started on clonidine twice daily. His diet was advanced as tolerated and he was tolerating p.o. intake. His abdominal pain and nausea had improved. Patient was stable for discharge home. He will follow-up with PCP and will need to see GI. Vital Signs: Vital Signs (72 hours) 02/14/24 16:25 02/14/24 16:19 02/14/24 19:36 Temperature 98.3 F Pulse Rate 110 H 118 H Pulse Rate [Right Brachial] Respiratory Rate 20 18 Blood Pressure 135/79 Blood Pressure [Right Arm] O2 Sat by Pulse Oximetry 98 98 Oxygen Delivery Method Room Air FIO2% 02/14/24 19:42 02/14/24 23:07 02/15/24 00:41 Temperature Pulse Rate Pulse Rate [Right Brachial] 72 Respiratory Rate 18 18 Blood Pressure Blood Pressure [Right Arm] 205/96 O2 Sat by Pulse Oximetry 98 Oxygen Delivery Method Room Air Room Air FIO2% 21 02/15/24 00:00 02/14/24 23:00 02/15/24 04:00 Temperature 98.4 F 98.6 F Pulse Rate Pulse Rate [Right Brachial] 76 75 Respiratory Rate 18 18 Blood Pressure Blood Pressure [Right Arm] 185/84 198/97 189/86 O2 Sat by Pulse Oximetry 98 98 Oxygen Delivery Method Room Air Room Air FIO2% 02/15/24 05:41 02/15/24 06:11 02/15/24 08:00 Temperature 98.0 F Pulse Rate Pulse Rate [Right Brachial] 101 H Respiratory Rate 20 18 18 Blood Pressure Blood Pressure [Right Arm] 185/82 O2 Sat by Pulse Oximetry 99 Oxygen Delivery Method Room Air FIO2% 02/15/24 09:01 02/15/24 09:45 02/15/24 12:00 Temperature 98.0 F Pulse Rate Pulse Rate [Right Brachial] 110 H Respiratory Rate 18 18 Blood Pressure Blood Pressure [Right Arm] 169/82 O2 Sat by Pulse Oximetry 99 Oxygen Delivery Method Room Air Room Air FIO2% 02/15/24 15:45 02/15/24 16:00 02/15/24 16:15 Temperature 97.4 F L Pulse Rate Pulse Rate [Right Brachial] 76 Respiratory Rate 20 18 18 Blood Pressure Blood Pressure [Right Arm] 186/83 O2 Sat by Pulse Oximetry 94 L Oxygen Delivery Method Room Air FIO2% 02/15/24 19:00 02/15/24 20:25 02/15/24 20:00 Temperature 97.7 F Pulse Rate Pulse Rate [Right Brachial] 76 Respiratory Rate 18 18 Blood Pressure Blood Pressure [Right Arm] 167/85 O2 Sat by Pulse Oximetry 96 Oxygen Delivery Method Room Air Room Air FIO2% 02/15/24 20:55 02/15/24 23:49 02/16/24 04:00 Temperature 97.9 F 97.7 F Pulse Rate Pulse Rate [Right Brachial] 71 73 Respiratory Rate 18 21 20 Blood Pressure Blood Pressure [Right Arm] 177/79 179/74 O2 Sat by Pulse Oximetry 95 94 L Oxygen Delivery Method Room Air Room Air FIO2% 02/16/24 05:08 02/16/24 05:38 02/16/24 09:06 Temperature Pulse Rate Pulse Rate [Right Brachial] Respiratory Rate 20 18 20 Blood Pressure Blood Pressure [Right Arm] O2 Sat by Pulse Oximetry Oxygen Delivery Method FIO2% 02/16/24 08:00 02/16/24 07:00 02/16/24 12:00 Temperature 97.5 F L 98.2 F Pulse Rate Pulse Rate [Right Brachial] 68 68 Respiratory Rate 20 18 Blood Pressure Blood Pressure [Right Arm] 164/81 163/71 O2 Sat by Pulse Oximetry 97 97 Oxygen Delivery Method Room Air Room Air Room Air FIO2% 02/16/24 09:36 Temperature Pulse Rate Pulse Rate [Right Brachial] Respiratory Rate 18 Blood Pressure Blood Pressure [Right Arm] O2 Sat by Pulse Oximetry Oxygen Delivery Method FIO2% Labs: Laboratory Last Values WBC 7.9 X10^3/uL (3.6-10.0) 02/16/24 05:42 RBC 4.58 X10^6/uL (4.7-6.0) L 02/16/24 05:42 Hgb 14.4 g/dL (13.5-18.0) D 02/16/24 05:42 Hct 43.7 % (42.0-54.0) 02/16/24 05:42 MCV 95.5 fL (80.0-100.0) 02/16/24 05:42 MCH 31.6 pg (27.0-34.0) 02/16/24 05:42 MCHC 33.1 g/dL (33.0-35.0) 02/16/24 05:42 RDW 15.5 % (11.6-16.5) 02/16/24 05:42 Plt Count 198 X10^3/uL (150.0-450.0) 02/16/24 05:42 MPV 7.9 fL (7.4-11.0) 02/16/24 05:42 Neut % (Auto) 71.1 % (42.0-75.0) 02/16/24 05:42 Lymph % (Auto) 19.0 % (21.0-51.0) L 02/16/24 05:42 [place] % (Auto) 7.1 % (0.0-13.0) 02/16/24 05:42 Eos % (Auto) 2.2 % (0.9-2.9) 02/16/24 05:42 Baso % (Auto) 0.6 % (0.2-1.0) 02/16/24 05:42 Neut # (Auto) 5.6 x10^3/uL (2.2-4.8) H 02/16/24 05:42 Lymph # (Auto) 1.5 X10^3/uL (1.3-2.9) 02/16/24 05:42 [place] # (Auto) 0.6 x10^3/uL (0.3-0.8) 02/16/24 05:42 Eos # (Auto) 0.2 x10^3/uL (0.0-0.2) 02/16/24 05:42 Baso # (Auto) 0.0 X10^3/uL (0.0-0.1) 02/16/24 05:42 Absolute Nucleated RBC 0.0 /100WBC 02/16/24 05:42 Sodium 134 mmol/L (136-145) L 02/16/24 05:42 Corrected Sodium 136 mmol/L (136-145) 02/16/24 05:42 Potassium 3.6 mmol/L (3.5-5.1) 02/16/24 05:42 Chloride 101 mmol/L (98-107) 02/16/24 05:42 Carbon Dioxide 27.1 mmol/L (21-32) 02/16/24 05:42 BUN 3 mg/dL (7-18) L 02/16/24 05:42 Creatinine 0.64 mg/dL (0.70-1.30) L 02/16/24 05:42 Est GFR (MDRD) Af Amer > 60 (>60) 02/16/24 05:42 Est GFR (MDRD) Non-Af > 60 (>60) 02/16/24 05:42 Glucose 165 mg/dL (65-99) H 02/16/24 05:42 Calcium 8.0 mg/dL (8.5-10.1) L 02/16/24 05:42 Corrected Calcium 9.3 mg/dL (8.5-10.1) 02/16/24 05:42 Magnesium 1.7 mg/dL (2.0-2.9) L 02/15/24 04:51 Total Bilirubin 0.40 mg/dL (0.2-1.0) 02/16/24 05:42 AST 17 Units/L (15-37) 02/16/24 05:42 ALT 14 Units/L (12-78) 02/16/24 05:42 Alkaline Phosphatase 83 Units/L (46-116) 02/16/24 05:42 Total Protein 5.6 g/dL (6.4-8.2) L 02/16/24 05:42 Albumin 2.4 g/dL (3.4-5.0) L 02/16/24 05:42 Globulin 3.2 g/dL (2.5-4.5) 02/16/24 05:42 Albumin/Globulin Ratio 0.8 Ratio (1.1-2.1) L 02/16/24 05:42 Amylase 130 Units/L (25-115) H 02/15/24 04:51 Lipase 389 Units/L (16-77) H 02/15/24 04:51 Specimen Type Clean catch urine 02/15/24 15:34 Urine Color Yellow (YELLOW) 02/15/24 15:34 Urine Appearance Clear (CLEAR) 02/15/24 15:34 Urine pH 6.0 (5.0 - 8.0) 02/15/24 15:34 Ur Specific [place] 1.015 (1.000-1.030) 02/15/24 15:34 Urine Protein 1+ (NEGATIVE) 02/15/24 15:34 Urine Glucose (UA) Negative (NEGATIVE) 02/15/24 15:34 Urine Ketones 2+ (NEGATIVE) 02/15/24 15:34 Urine Blood Negative (NEGATIVE) 02/15/24 15:34 Urine Nitrite Negative (NEGATIVE) 02/15/24 15:34 Urine Bilirubin Negative (NEGATIVE) 02/15/24 15:34 Urine Urobilinogen Normal (NORMAL) 02/15/24 15:34 Ur Leukocyte Esterase Negative (NEGATIVE) 02/15/24 15:34 Urine RBC 0-2 /HPF (0-3) 02/15/24 15:34 Urine WBC 0-2 /HPF (0-5) 02/15/24 15:34 Ur Squamous Epith Cells Rare /HPF (NEGATIVE) 02/15/24 15:34 Amorphous Sediment 1+ /HPF (NEGATIVE) 02/14/24 18:03 Urine Bacteria Trace /HPF (NEGATIVE) 02/15/24 15:34 Urine Mucus Moderate /HPF (NEGATIVE) 02/15/24 15:34 Urine Yeast Few /HPF (NEGATIVE) 02/14/24 18:03 Ur Culture Indicated? No/not indicated 02/15/24 15:34 Urine Opiates Screen Positive (NEG=<300) 02/15/24 15:34 Urine Methadone Screen Negative (NEG=<300) 02/15/24 15:34 Ur Barbiturates Screen Positive (NEG=<200) 02/15/24 15:34 Ur Phencyclidine Scrn Negative (NEG=<25) 02/15/24 15:34 Ur Amphetamines Screen Negative (NEG=<1000) 02/15/24 15:34 U Benzodiazepines Scrn Negative (NEG=<200) 02/15/24 15:34 Urine Cocaine Screen Negative (NEG=<300) 02/15/24 15:34 U Marijuana (THC) Screen Positive (NEG=<50) A 02/15/24 15:34 Ethyl Alcohol mg/dL < 3 mg/dL (0-19.9) 02/15/24 09:45 Reason For Visit: PANCREATITIS, ABDOMINAL PAIN Discharge Diagnosis All Active Problems (Updated 02/15/24 @ 10:34 by Digna Juarez) Duodenitis (Acute) Acute pancreatitis (Acute) Abdominal pain (Acute) HTN (hypertension) (Acute) Dehydration (Acute) Acute on chronic pancreatitis (Acute) Alcohol use (Acute) Acute pancreatitis (Acute) Abdominal pain (Acute) Plan of Treatment: Continue with present treatment and follow up plan. Pt is to keep follow up appointment as instructed and take medications as ordered. Discharge Medications Discharge Medications: Penicillins Allergy (Verified 12/04/23 02:34) ciprofloxacin [From Cipro] Adverse Reaction (Mild, Verified 02/15/24 10:37) CONTINUE taking the following medications pantoprazole 20 mg tablet,delayed release 20 mg PO BID 02/14/24 [History] tizanidine 4 mg tablet 4 mg PO TID 02/14/24 [History] New Prescriptions cephalexin 500 mg capsule 500 mg PO BID 7 days #14 caps 02/16/24 [Rx] clonidine HCl 0.1 mg tablet 0.1 mg PO BID 30 days #60 tabs 02/16/24 [Rx] metronidazole 500 mg tablet 500 mg PO TID 7 days #21 tabs 02/16/24 [Rx] Discharge Disposition Discharge Disposition: To home Discharge Condition: Stable Discharge Plan Discharge Plan Hospital Course: Mr Francis is a 58-year-old male with a past medical history of alcohol abuse, chronic back pain, anxiety and chronic pancreatitis presented with worsening abdominal pain and nausea. He reports having the symptoms for a few days. Faizan es diarrhea, fever or chills. He has a history of recurrent pancreatitis. He was admitted in November for similar symptoms. He denies having gallbladder issues. He does drink a six pack beer daily. He does not see supervisor composing room. In the ER, lipase was elevated at 478, CT abdomen pelvis showed acute on chronic pancreatitis and gastroduodenitis. Patient was started on IV fluids, n.p.o. and pain medication. He was also started on IV antibiotics. His labs were monitored daily and electrolytes replace as needed. Gallbladder ultrasound did not show acute cholecystitis but did show sludge. He was also started on detox protocol due to history of alcohol use. His blood pressure was also elevated, started on clonidine twice daily. His diet was advanced as tolerated and he was tolerating p.o. intake. His abdominal pain and nausea had improved. Patient was stable for discharge home. He will follow-up with PCP and will need to see GI. Patient Disposition: 01 HOME, SELF-CARE Condition: Stable Health Concerns: Post Hospitalization: new medications and changes needed to prevent readmission or further decline. Pt educated and given instructions on all concerns. Care Plan Goals: Problem: Pain/Alteration in Comfort Goal: Improve/ Resolve Pain; Achieve Pain Tolerance Instructions: Take pain medications as prescribed. Contact your primary care provider if your pain is unrelieved or worsens. Follow up with primary care provider as directed. Plan of Treatment: Continue with present treatment and follow up plan. Pt is to keep follow up appointment as instructed and take medications as ordered. Prescriptions: New clonidine HCl 0.1 mg Tablet 0.1 mg PO BID 30 Days Qty: 60 0RF cephalexin 500 mg capsule 500 mg PO BID 7 Days Qty: 14 0RF metronidazole 500 mg tablet 500 mg PO TID 7 Days Qty: 21 0RF Continued alprazolam 1 mg tablet 1 mg PO BID PRN hydrocodone-acetaminophen 10-325 mg tablet 1 tab PO QID PRN sucralfate 1 gram tablet 1 g PO BID Qty: 60 0RF tizanidine 4 mg tablet 4 mg PO TID pantoprazole 20 mg tablet,delayed release (DR/EC) 20 mg PO BID Orders to Discharge Patient Discharge Orders: Discharge (Routine); Ordered 02/16/24 Ordered By: Digna Juarez Follow ups/Referrals Follow ups/Referrals: ARIAS JENKINS [Nurse Practitioner] - 08/27/24 10:40 am Instructions Instructions: Acute Pancreatitis, [id number], Abdominal Pain, Adult, [id number], Flank Pain, Adult, [id number] Activity Restrictions/Additional Instructions: AVOID ALCOHOL USE WHILE TAKING ANTIBIOTICS Stand Alone Forms: Excuse From Work or School, Post Hospital Follow Up Care
[2024-02-18] MEDS ORDERED: PHENOBARBITAL TAB 15 MG (16.2MG) PO SCH (10:00)
== END 2024-02-16 13:50 | disposition home or self-care (01) ==
LOC: U 16:14 → ER 16:14 → U 22:50 → MED/SURG 02-15 11:02
PROVIDERS: ADMIT Internal Medicine; ATTEND Internal Medicine

== ENCOUNTER 2025-04-30 17:52 | Observation (INO) ==
--- NOTE | 2025-04-30 18:25 | EKG ---
Test Reason : SOB Blood Pressure : */* mmHG Vent. Rate : 109 BPM Atrial Rate : 109 BPM P-R Int : 122 ms QRS Dur : 68 ms QT Int : 318 ms P-R-T Axes : 43 37 21 degrees QTc Int : 428 ms Sinus tachycardia Nonspecific ST abnormality Abnormal ECG When compared with ECG of 09-MAY-2024 14:11, Vent. rate has increased BY [address] elevation now present in Lateral leads Nonspecific T wave abnormality now evident in Inferior leads T wave amplitude has decreased in Anterolateral leads Confirmed by Jcarlos Duong MD ([id number]) on 05/01/2025 7:13:13 AM Referred By: Confirmed By: Jcarlos Duong MD
[2025-04-30 18:35] LABS: MEAN PLATELET VOLUME 7.4 fL (7.4-11.0); RED CELL DISTRIBUTION WIDTH 14.9 % (11.6-16.5)
[2025-04-30 18:42] LABS: COR NA(FOR HYPERGLY) 140 mmol/L (136-145); CREATININE 0.85 mg/dL (0.70-1.30); eGFR NON BLACK RACES > 60 (>60)
--- NOTE | 2025-04-30 18:49 | CT ---
EXAM: CHEST W/O CON HISTORY: SOB, COUGH; PT C/O COUGH X5 DAYS COMPARISON: Chest radiograph from February 15, 2024 TECHNIQUE: Axial non-contrast images of the chest with coronal and sagittal reformats. Radiation dose: 242.11 mGy-cm total DLP FINDINGS: Small nonspecific pericardial effusion. Coronary artery calcifications. Aorta and pulmonary arteries are normal in caliber. No hilar or mediastinal adenopathy. Thyroid appears normal. Central airways are widely patent. Esophagus appears normal. Imaged portion of the upper abdomen is unremarkable. Large bilateral layering pleural effusions with adjacent atelectasis. No acute focal infiltrate or pneumothorax. No focal concerning lung parenchymal lesion identified. No acute osseous abnormality. IMPRESSION: Nonspecific small pericardial effusion and large bilateral layering pleural effusions. No acute focal airspace disease identified. THIS IS AN ELECTRONICALLY VERIFIED FINAL REPORT 04/30/2025 6:46 PM - Electronically signed by Darren Nelson MD
--- NOTE | 2025-04-30 19:36 | DR.URIAD ---
HPI Time Seen Time Seen by Provider: 04/30/25 19:36 PCP Primary Care Physician: Teresita Jenkins Complaint Chief Complaint Doctors Comments: Patient with complaint of cough and shortness of breath for about 5 days. States she has had white mucus with this cough. Denies fever. Complains of discomfort when he leans forward. Chief Complaint:: pt states that about 5 days ago he started to develop a cough along with being SOB all the time. He has also been spitting up white mucous. pt denies any fevers and stated, "when i bend over my heart hurts" Source History Provided: Patient Mode of Arrival Mode of Arrival: Ambulatory Timing Onset of Chief Complaint: 04/25/25 PMH PMH Past Medical History: Yes Past Medical History: Anxiety, Diabetes and Hypertension Past Surgical History: Yes Surgical History: Abdominal Surgery, Ortho Surgery and Other Family History History of Family Medical Conditions: Yes Family Medical History: Cancer, [place], Heart Failure, Sudden Cardiac and Hypertension Social History Does patient currently use any type of tobacco product: Yes Have you used tobacco products in the last 12 months: Yes Type of Tobacco Use: Cigarettes Alcohol Use: None Do you use any recreational Drugs:: No Lives With: Spouse Lives Where: Home Infectious screening Have you traveled outside the country in the last 6 months?: No Isolation: Standard ROS Review of Systems Constitutional: No Symptoms Reported; negative Fever Eyes: No Symptoms Reported ENTM: No Symptoms Reported Respiratoy: See HPI, Productive Cough and Short of Breath Cardiovascular: No Symptoms Reported Gastrointestinal/Abdominal: No Symptoms Reported Genitourinary: No Symptoms Reported Neurological: No Symptoms Reported Musculoskeletal: No Symptoms Reported Integumentary: No Symptoms Reported Hematologic/Lymphatic: No Symptoms Reported Endocrine: No Symptoms Reported Psychiatric: No Symptoms Reported All Other Systems: Reviewed and Negative PE Vital Signs Vitals: Vital Signs Temperature 98.3 F Pulse Rate 108 Respiratory Rate 20 Blood Pressure 153/81 O2 Sat by Pulse Oximetry 95 General Limitations: No Limitations General Appearance: Alert and In No Apparent Distress Head Head Exam: Normal Inspection Eyes Eye exam: Normal Appearance Neck Neck Exam: Normal Inspection Chest Chest Inspection: Normal Inspection Respiratory Respiratory Exam: Other (Diminished at bases otherwise clear to auscultation bilateral); negative Respiratory Distress Cardiovascular Cardiovascular Exam: Regular Rate and Normal Rhythm Abdominal Exam Abdominal Exam: Normal Inspection, Normal Bowel Sounds and Soft Extremeties Extremities Exam: Normal Inspection Back Back Exam: Normal Inspection Neurologic Neurological Exam: Alert and Oriented X3 Psychiatric Psychiatric Exam: Normal Affect and Normal Mood Skin Skin Exam: Warm, Dry, Intact and Normal Color COURSE Treatment Treatment: Discussed results of workup with patient. Suspect bilateral pneumonia versus congestive heart failure. Patient agreeable to admission. Consultation Called: 08:47 Consultation Comments: Discussed case with Dr. Martinez and he is agreeable to admission ROR Labs Reviewed Laboratory Results Reviewed?: Yes 04/30/25 18:29 04/30/25 18: Laboratory: WBC 17.3 X10^3/uL (3.6-10.0) H 04/30/25 18: RBC 4.59 X10^6/uL (4.7-6.0) L 04/30/25 18: Hgb 14.1 g/dL (13.5-18.0) 04/30/25 18: Hct 42.2 % (42.0-54.0) 04/30/25 18: MCV 92.0 fL (80.0-100.0) 04/30/25 18: MCH 30.7 pg (27.0-34.0) 04/30/25 18: MCHC 33.4 g/dL (33.0-35.0) 04/30/25 18: RDW 14.9 % (11.6-16.5) 04/30/25 18: Plt Count 614 X10^3/uL (150.0-450.0) H 04/30/25 18: MPV 7.4 fL (7.4-11.0) 04/30/25 18: Neut % (Auto) 86.1 % (42.0-75.0) H 04/30/25 18: Lymph % (Auto) 7.5 % (21.0-51.0) L 04/30/25 18: [place] % (Auto) 5.3 % (0.0-13.0) 04/30/25 18: Eos % (Auto) 0.5 % (0.9-2.9) L 04/30/25 18: Baso % (Auto) 0.6 % (0.2-1.0) 04/30/25 18: Neut # (Auto) 14.9 x10^3/uL (2.2-4.8) H 04/30/25 18:29 Lymph # (Auto) 1.3 X10^3/uL (1.3-2.9) 04/30/25 18:29 [place] # (Auto) 0.9 x10^3/uL (0.3-0.8) H 04/30/25 18:29 Eos # (Auto) 0.1 x10^3/uL (0.0-0.2) 04/30/25 18: Baso # (Auto) 0.1 X10^3/uL (0.0-0.1) 04/30/25 18: Absolute Nucleated RBC 0.0 /100WBC 04/30/25 18:29 Sodium 136 mmol/L (136-145) 04/30/25 18:29 Corrected Sodium 140 mmol/L (136-145) 04/30/25 18:29 Potassium 3.6 mmol/L (3.5-5.1) 04/30/25 18: Chloride 96 mmol/L (98-107) L 04/30/25 18: Carbon Dioxide 31.9 mmol/L (21-32) 04/30/25 18:29 BUN 4 mg/dL (7-18) L 04/30/25 18:29 Creatinine 0.85 mg/dL (0.70-1.30) 04/30/25 18:29 Est GFR (MDRD) Af Amer > 60 (>60) 04/30/25 18:29 Est GFR (MDRD) Non-Af > 60 (>60) 04/30/25 18: Glucose 280 mg/dL (65-99) H 04/30/25 18: Calcium 8.6 mg/dL (8.5-10.1) 04/30/25 18:29 Troponin I High Sens 9.4 ng/L (4.0-60.0) 04/30/25 18:29 B-Natriuretic Peptide 640 pg/mL (0-79) H 04/30/25 18:29 SARS-CoV-2 (PCR) Negative (NEGATIVE) 04/30/25 18:05 Influenza Type A (PCR) Negative (NEGATIVE) 04/30/25 18:05 Influenza Type B (PCR) Negative (NEGATIVE) 04/30/25 18:05 RSV (PCR) Negative (NEGATIVE) 04/30/25 18:05 Other Results Comments: See imaging results EKG Rate: 109 [place]: Normal Rhythm: ST ST: Normal Opioid Opioid Risk Tool Age (Bret box if 16-45): No History of Preadolescent Sexual Abuse: No Total: 0 Total Score Risk Category: Low Risk Copyright: [facility] predicting aberrant behaviors Discharge Plan Diagnosis Discharge Problem: Bilateral pneumonia, CHF exacerbation, Acute pericardial effusion Discharge Plan Patient Disposition: ADMITTED INPATIENT Condition: Stable Prescriptions: No Action alprazolam 1 mg tablet 1 mg PO BID PRN pantoprazole 40 mg tablet,delayed release (DR/EC) 40 mg PO QDAY tizanidine 4 mg tablet 4 mg PO TID hydrocodone-acetaminophen 10-325 mg tablet 1 tab PO TID PRN lisinopril 5 mg tablet 5 mg PO QDAY insulin degludec [Tresiba FlexTouch U-100] 100 unit/mL (3 mL) insulin pen See Rx Instructions .ROUTE .COMPLEX Patient Comments: [NO ORIGINAL SIG] Rx Instructions: as directed Health Concerns: Post Hospitalization: new medications and changes needed to prevent readmission or further decline. Pt educated and given instructions on all concerns. Plan of Treatment: Continue with present treatment and follow up plan. Pt is to keep follow up appointment as instructed and take medications as ordered. Orders to Discharge Patient Discharge Orders: Transfer (Routine); Ordered 04/30/25 Ordered By: Mark Hess Follow ups/Referrals Follow ups/Referrals: TERESITA JENKINS [Primary Care Provider, Unknown] - 3 days Instructions Stand Alone Forms: Find Help Web Site, Post Hospital Follow Up Care Print Language: HAITIAN
[2025-04-30] MEDS: LASIX IVP ONE (21:12)
[2025-04-30] MEDS: LEVAQUIN PREMIX IV 750 MG 750 MG/150 ML BAG IV SCH (21:16)
[2025-04-30] MEDS ORDERED: CONSULT PHARMACY - POTASSIUM & MAGNESIUM XX SCH (22:36)
[2025-04-30] MEDS ORDERED: ULTRAM PO PRN (22:36)
[2025-04-30] MEDS ORDERED: TYLENOL 325 MG TAB PO PRN (22:36)
[2025-04-30] MEDS ORDERED: NORCO 5/325 MG TAB PO PRN (22:36)
[2025-04-30] MEDS ORDERED: MORPHINE SULFATE INJ 2 MG INJ IVP PRN (22:36)
[2025-04-30 23:09] VITALS: BMI 20.9
[2025-04-30] MEDS: K-DUR TAB 20 MEQ PO ONE (23:18)
[2025-05-01 05:00] LABS: MEAN PLATELET VOLUME 7.9 fL (7.4-11.0); RED CELL DISTRIBUTION WIDTH 15.6 % (11.6-16.5)
[2025-05-01 05:06] LABS: COR NA(FOR HYPERGLY) 139 mmol/L (136-145); CREATININE 0.58 mg/dL (0.70-1.30); eGFR NON BLACK RACES > 60 (>60)
[2025-05-01] MEDS ORDERED: NovoLIN R (or HumuLIN R) SUBCUT PRN (05:58)
[2025-05-01] MEDS ORDERED: NovoLIN R (or HumuLIN R) SUBCUT SCH (06:30)
[2025-05-01] MEDS: PULMICORT NEB TX 0.5 MG NEB SCH (08:37)
[2025-05-01] MEDS: DUONEB 0.5 MG/3 MG (3 mL) NEB SCH (08:37)
[2025-05-01 09:21] VITALS: RESP 19
[2025-05-01] MEDS: LASIX IVP SCH (09:33)
[2025-05-01] MEDS: ZESTRIL TAB 5 MG PO SCH (09:34)
[2025-05-01] MEDS: PROTONIX TAB 40 MG PO SCH (09:34)
[2025-05-01] MEDS ORDERED: CONSULT PHARMACY - POTASSIUM & MAGNESIUM XX SCH (10:00)
[2025-05-01] MEDS: K-DUR TAB 20 MEQ PO SCH (11:00)
[2025-05-01] MEDS: NS 250 ML IV 250 ML IV ONE (12:04)
[2025-05-01 12:25] VITALS: BP 158/76; PULSE 97; TEMP 98.6; O2SAT 93
[2025-05-01] MEDS: LASIX ONE (12:34)
[2025-05-01] MEDS: LEVAQUIN PREMIX IV 750 MG 750 MG/150 ML BAG IV ONE (12:34)
[2025-05-01 18:12] LABS: COR CA(FOR HYPOALB) 10.1 mg/dL (8.5-10.1)
[2025-05-01] MEDS ORDERED: SNACK - Diabetic Appropriate PO SCH (20:00)
[2025-05-01] MEDS ORDERED: LEVAQUIN PREMIX IV 750 MG 750 MG/150 ML BAG IV SCH (21:22)
--- NOTE | 2025-05-03 16:11 | DR.SSS ---
SHORT STAY SUMMARY Admission Date Date of Admission: 04/30/25 Discharge Date Discharge Date: 05/01/25 Admission Diagnoses Admission Diagnoses: CHF exacerbation HTN Dyspnea Discharge Diagnoses Discharge Diagnoses: CHF exacerbation Hypertension Pneumonia GERD Chief Complaint Chief Complaint: Shortness of breath History of Present Illness History of Present Illness: Patient is a 60-year-old male with a past medical history of alcohol use, chronic pain syndrome, hypertension and diabetes presented with worsening dyspnea and URI symptoms. He reports feeling short of breath and having productive cough. ER workup included labs and imaging. Patient did have elevated WBC, troponin were negative, BNP was elevated. Chest CT showed pleural effusion. He was started on IV antibiotics and IV Lasix. He was admitted for further evaluation. Past Medical History Past Medical History: Anxiety, Diabetes and Hypertension Additional Medical History: ALCOHOL ABUSE, CHRONIC BACK PAIN Past Surgical History Surgical History: Abdominal Surgery and Ortho Surgery Additional Surgical History: STEEL PLATE IN LEFT LOWER LEG, NECK FUSION Allergies Allergies Allergy/AdvReac Type Severity Reaction Status Date / Time Penicillins Allergy Verified 03/27/25 08:04 ciprofloxacin (From Cipro) AdvReac Mild Verified 03/27/25 08:04 Medications Home Medications: Penicillins Allergy (Verified 03/27/25 08:04) ciprofloxacin (From Cipro) Adverse Reaction (Mild, Verified 03/27/25 08:04) CONTINUE taking the following medications hydrocodone 10 mg-acetaminophen 325 mg tablet 1 tab PO TID PRN 04/30/25 [History] insulin degludec 100 unit/mL (3 mL) subcutaneous pen (Tresiba FlexTouch U-100 insulin) See Rx Instructions .Route .COMPLEX 04/30/25 [History] lisinopril 5 mg tablet 5 mg PO QDAY 04/30/25 [History] tizanidine 4 mg tablet 4 mg PO TID 04/30/25 [History] New Prescriptions furosemide 40 mg tablet (Lasix) 40 mg PO QDAY 30 days #30 tabs 05/01/25 [Rx] levofloxacin 500 mg tablet 500 mg PO QDAY 5 days #5 tabs 05/01/25 [Rx] potassium chloride 10 mEq tablet,extended release (Klor-Con) 10 meq PO QDAY #30 tabs 05/01/25 [Rx] Family History Family Medical History: Cancer, [place], Coronary Artery Disease, Heart Failure, Sudden Cardiac and Hypertension Social History Does patient currently use any type of tobacco product: Yes Have you used tobacco products in the last 12 months: Yes Type of Tobacco Use: Cigarettes How many years tobacco product used: 47 Alcohol Use: DAILY Drug Use: Marijuana Review of Systems Constitutional: No Symptoms Reported Eyes: No Symptoms Reported ENT: No Symptoms Reported Respiratory: Cough, Shortness of Breath, SOB with Excertion and Sputum Cardiovascular: Orthopnea and Edema Gastrointestinal: No Symptoms Reported Genitourinary: No Symptoms Reported Musculoskeletal: No Symptoms Reported Skin: No Symptoms Reported Neurological: No Symptoms Reported Physical Exam Vital Signs: Last Vital Signs Temp 98.6 F 05/01/25 12:00 Pulse 97 H 05/01/25 12:00 Resp 19 05/01/25 12:00 BP 158/76 05/01/25 12:00 Pulse Ox 93 L 05/01/25 12:00 O2 Del Method Room Air 05/01/25 12:00 O2 Flow Rate 2 05/01/25 08:37 FiO2 28 05/01/25 08:37 Oriented: Normal Respiratory: Diminished Throughout, RLL Rales and LLL Rales Cardiovascular: Normal Auscultation: Bowel Sounds: Normal Palpation: Normal Tenderness: Normal Musculoskeletal: Normal Psychiatric: Normal Mood Description: Calm Affect: Normal Speech Pattern: Clear Labs Labs: Laboratory Last Values WBC 14.1 X10^3/uL (3.6-10.0) H 05/01/25 04:21 RBC 4.29 X10^6/uL (4.7-6.0) L 05/01/25 04:21 Hgb 13.2 g/dL (13.5-18.0) L 05/01/25 04:21 Hct 38.9 % (42.0-54.0) L 05/01/25 04:21 MCV 90.8 fL (80.0-100.0) 05/01/25 04:21 MCH 30.8 pg (27.0-34.0) 05/01/25 04:21 MCHC 33.9 g/dL (33.0-35.0) 05/01/25 04:21 RDW 15.6 % (11.6-16.5) 05/01/25 04:21 Plt Count 596 X10^3/uL (150.0-450.0) H 05/01/25 04:21 MPV 7.9 fL (7.4-11.0) 05/01/25 04:21 Neut % (Auto) 82.8 % (42.0-75.0) H 05/01/25 04:21 Lymph % (Auto) 10.0 % (21.0-51.0) L 05/01/25 04:21 [place] % (Auto) 6.4 % (0.0-13.0) 05/01/25 04:21 Eos % (Auto) 0.2 % (0.9-2.9) L 05/01/25 04:21 Baso % (Auto) 0.6 % (0.2-1.0) 05/01/25 04:21 Neut # (Auto) 11.6 x10^3/uL (2.2-4.8) H 05/01/25 04:21 Lymph # (Auto) 1.4 X10^3/uL (1.3-2.9) 05/01/25 04:21 [place] # (Auto) 0.9 x10^3/uL (0.3-0.8) H 05/01/25 04:21 Eos # (Auto) 0.0 x10^3/uL (0.0-0.2) 05/01/25 04:21 Baso # (Auto) 0.1 X10^3/uL (0.0-0.1) 05/01/25 04:21 Absolute Nucleated RBC 0.0 /100WBC 05/01/25 04:21 Sodium 136 mmol/L (136-145) 05/01/25 04:21 Corrected Sodium 139 mmol/L (136-145) 05/01/25 04:21 Potassium 3.2 mmol/L (3.5-5.1) L 05/01/25 04:21 Chloride 97 mmol/L (98-107) L 05/01/25 04:21 Carbon Dioxide 32.5 mmol/L (21-32) H 05/01/25 04:21 BUN 3 mg/dL (7-18) L 05/01/25 04:21 Creatinine 0.58 mg/dL (0.70-1.30) L 05/01/25 04:21 Est GFR (MDRD) Af Amer > 60 (>60) 05/01/25 04:21 Est GFR (MDRD) Non-Af > 60 (>60) 05/01/25 04:21 Glucose 206 mg/dL (65-99) H 05/01/25 04:21 POC Glucose (mg/dL) 207 mg/dL (65-99) H 05/01/25 11:53 Calcium 8.3 mg/dL (8.5-10.1) L 05/01/25 04:21 Troponin I High Sens 9.4 ng/L (4.0-60.0) 04/30/25 18:29 B-Natriuretic Peptide 640 pg/mL (0-79) H 04/30/25 18:29 SARS-CoV-2 (PCR) Negative (NEGATIVE) 04/30/25 18:05 Influenza Type A (PCR) Negative (NEGATIVE) 04/30/25 18:05 Influenza Type B (PCR) Negative (NEGATIVE) 04/30/25 18:05 RSV (PCR) Negative (NEGATIVE) 04/30/25 18:05 Hospital Course Hospital Course: Patient was admitted for CHF exacerbation and pneumonia. He remained on IV antibiotics and IV Lasix. He was also started on bronchodilators. His labs were monitored daily and electrolytes replaced as needed. He also had echocardiogram done. Patient did qualify for home oxygen. He was stable for discharge. He will follow-up with cardiology and PCP as scheduled. He was sent home on p.o. Lasix and p.o. antibiotics. Discharge Medications Discharge Medications: Home Medication List hydrocodone 10 mg-acetaminophen 325 mg tablet 1 tab PO TID PRN 04/30/25 [History] insulin degludec 100 unit/mL (3 mL) subcutaneous pen (Tresiba FlexTouch U-100 insulin) See Rx Instructions .Route .COMPLEX 04/30/25 [History] lisinopril 5 mg tablet 5 mg PO QDAY 04/30/25 [History] tizanidine 4 mg tablet 4 mg PO TID 04/30/25 [History] furosemide 40 mg tablet (Lasix) 40 mg PO QDAY 30 days #30 tabs 05/01/25 [Rx] levofloxacin 500 mg tablet 500 mg PO QDAY 5 days #5 tabs 05/01/25 [Rx] potassium chloride 10 mEq tablet,extended release (Klor-Con) 10 meq PO QDAY #30 tabs 05/01/25 [Rx] Prescriptions: furosemide [Lasix] Digna Juarez levofloxacin AndiDigna diaz potassium chloride [Klor-Con 10] Digna Juarez Discharge Plan Discharge Plan Patient Disposition: 01 HOME, SELF-CARE Condition: Stable Health Concerns: Post Hospitalization: new medications and changes needed to prevent readmission or further decline. Pt educated and given instructions on all concerns. Care Plan Goals: Problem: Respiratory Complications Goal: Improved Uncomplicated Respiratory Status Instructions: Follow provided instructions. Follow up with primary physician as directed. Contact primary care physician or report to the closest Emergency Room if condition worsens. Plan of Treatment: Continue with present treatment and follow up plan. Pt is to keep follow up appointment as instructed and take medications as ordered. Prescription drug monitoring program results: PDMP reviewed and no concerns identified Prescriptions: New levofloxacin 500 mg tablet 500 mg PO QDAY 5 Days Qty: 5 0RF furosemide [Lasix] 40 mg tablet 40 mg PO QDAY 30 Days Qty: 30 0RF potassium chloride [Klor-Con 10] 10 mEq tablet extended release 10 meq PO QDAY Qty: 30 0RF Rx Instructions: take with furosemide Continued alprazolam 1 mg tablet 1 mg PO BID PRN pantoprazole 40 mg tablet,delayed release (DR/EC) 40 mg PO QDAY tizanidine 4 mg tablet 4 mg PO TID hydrocodone-acetaminophen 10-325 mg tablet 1 tab PO TID PRN lisinopril 5 mg tablet 5 mg PO QDAY insulin degludec [Tresiba FlexTouch U-100] 100 unit/mL (3 mL) insulin pen See Rx Instructions .ROUTE .COMPLEX Patient Comments: [NO ORIGINAL SIG] Rx Instructions: as directed Orders to Discharge Patient Discharge Orders: Discharge (Routine); Ordered 05/01/25 Ordered By: Digna Juarez Follow ups/Referrals Follow ups/Referrals: Certified [facility] [Other] Referral Note: Home oxygen delivery to patient's home prio to discharge. [facility] member will bring to hospital at discharge. ARIAS JENKINS [Primary Care Provider, Unknown] - 05/08/25 1:20 pm CHARLEY VALDES MD [STAFF PHYSICIAN, Cardiology] - 05/21/25 11:00 am Referral Note: Instructions Instructions: Heart Failure: Self-Care, Pericardial Effusion, Home Oxygen Use, Adult, Community-Acquired Pneumonia, Adult, [id number] Stand Alone Forms: Find Help Web Site, Post Hospital Follow Up Care Print Language: ESTONIAN
== END 2025-05-01 15:20 | disposition home or self-care (01) ==
LOC: MED/SURG 17:52 → ER 17:52 → MED/SURG 22:26
PROVIDERS: ADMIT Family Medicine; ATTEND Internal Medicine
DX: Z72.0 Tobacco use; E11.65 Type 2 diabetes mellitus with hyperglycemia; J18.8 Other pneumonia, unspecified organism; F10.90 Alcohol use, unspecified, uncomplicated; I50.89 Other heart failure; R05.8 Other specified cough; F41.8 Other specified anxiety disorders; I11.0 Hypertensive heart disease with heart failure; F12.90 Cannabis use, unspecified, uncomplicated; D72.828 Other elevated white blood cell count; J90 Pleural effusion, not elsewhere classified; R94.31 Abnormal electrocardiogram [ECG] [EKG]; D64.89 Other specified anemias; Z03.818 Encounter for observation for suspected exposure to other biological agents ruled out; R06.02 Shortness of breath; E83.51 Hypocalcemia; R00.0 Tachycardia, unspecified; Z79.4 Long term (current) use of insulin; I31.39 Other pericardial effusion (noninflammatory)